=== PATIENT | female | born 1960 | race Caucasian/White ===

== ENCOUNTER 2024-11-05 10:37 | Outpatient (CLI) | payer OTHER, SELFPAY ==
--- NOTE | ~2024-11-05 | US_ITS ---
EXAMINATION: US renal BI DATE: 11/05/2024 11:39 INDICATION: Stage IV chronic kidney disease TECHNIQUE: Multiple ultrasound grayscale images of the kidneys were obtained. COMPARISON: None. FINDINGS: The right kidney measures 10.2 x 4.8 x 4.0 cm. The left kidney measures 9.1 x 4.4 x 4.8 cm. There is bilateral diffuse increased renal cortical activity consistent with medical renal disease. 2.1 cm ane choic cyst at the upper pole of the right kidney. There is mild pelviectasis on the prevoid imaging d ecreased slightly on the post void imaging. There is no arun hydronephrosis in either kidney. No st ones identified. There are couple cystic left adnexal regions which appear to abut the dome of the ot herwise normal-appearing bladder which could represent either adnexal cysts or bladder diverticula. T hese lesions measure 2.5 cm and 2.0 cm in maximal diameters. IMPRESSION: 1. Bilateral echogenic renal parenchyma consistent with medical renal disease. 2. Mild right pelviectasis on prevoid imaging which improves post voiding with no arun hydronephrosi s in either kidney. 3. A couple anechoic cystic lesions at the left adnexa which could represent bladder diverticula vers us simple appearing adnexal cyst. Reviewed, dictated and finalized at location B. PRESSER IMPRESSION: 1. Bilateral echogenic renal parenchyma consistent with medical renal disease. 2. Mild right pelviectasis on prevoid imaging which improves post voiding with no arun hydronephrosis in either kidney. 3. A couple anechoic cystic lesions at the left adnexa which could represent bl adder diverticula versus simple appearing adnexal cyst.
== END 2024-11-05 10:38 | disposition home or self-care (01) ==
PROVIDERS: PCP Nurse Practitioner Family; Visit Provider Internal Medicine Nephrology
DX: N18.4 Chronic kidney disease, stage 4 (severe) (principal)
CPT/HCPCS: 76775

== ENCOUNTER 2024-12-12 14:17 | Outpatient (CLI) | payer OTHER, SELFPAY ==
--- OUTSIDE RECORDS SUMMARY | 2024-12-12 14:20 | XMS_ITS | Referral Summary ---
Author Organization [email or web address] Address [address] [place] [address] Care Team Providers Care Refining Machine Operator Name Role Phone Unavailable Primary Care Provider Unavailabl e Source Comments [email or web address],non-owned Affiliates and Associated Physician Practices is amultiple site organization consisting of ambulatory clinics and hospital sitesin [place], [place], [place] and [place]. This disclosure is being madepursuant to the Care Everywhere program and may not contain all information available regarding this patient. Last updated 18.[email or web address] Allergies Active Allergy Reactions Criticality Noted Date Comments Hydrochlorothiazide Nausea and/or Vomiting Medium 11/0 10/2015 Sulfa Drugs Vomiting 04/03/2019 Hydrocodone-Acetaminophen Psychiatric,Vomiting Medium 04/03/2019 Medications * Be aware that medications may not be up to date on this document. Alwaysverify current medications with the patient. Medication Sig Dispensed Refills Start Date End Date Status fluticasone propionate (FLONASE) 50 MCG/ACT nasal spray [place] 2 sprays into each nostril once daily 1 bottles 04/03/2019 Active QUINAPRIL HCL PO Active Loratadine (CLARITIN PO) Active Cetirizine HCl (ZYRTEC PO) Active Active Problems Problem Noted Date Diagnosed Date Mixed anxiety and depressive disorder 09/25/2016 Essential hypertension 08/23/2016 Social History Tobacco Use Types Packs/Day Years Used Date Smoking Tobacco: Former Smokeless Tobacco: Current Comments:Currently vapes Sex and Gender Information Value Date Recorded Sex Assigned at Not on file Gender Identity Not on file Sexual Orientation Not on file Last Filed Vital Signs Vital Sign Reading Time Taken Comments Blood Pressure 128/78 10/04/2020 2:44 PM DATA SCIENCES DIRECTOR Pulse 88 10/04/2020 2:44 PM DATA SCIENCES DIRECTOR Temperature 36.8 C (98.2 F) 10/04/2020 2:44 PM DATA SCIENCES DIRECTOR Respiratory Rate 20 10/04/2020 2:44 PM DATA SCIENCES DIRECTOR Oxygen Saturation 97% 11/01/2019 4:10 PM DATA SCIENCES DIRECTOR Inhaled Oxygen Concentration - - Weight 86.2 kg (190 lb) 11/01/2019 4:10 PM DATA SCIENCES DIRECTOR Height 165.1 cm (5' 5 ) 11/01/2019 4:10 PM DATA SCIENCES DIRECTOR Body Mass Index 31.62 11/01/2019 4:10 PM DATA SCIENCES DIRECTOR Plan of Treatment Not on file
--- OUTSIDE RECORDS SUMMARY | 2024-12-12 14:20 | XMS_ITS | Clinical Summary ---
Author Organization [facility] Address [address] [place] [address] Care Team Providers Care Breakdown Worker Name Role Phone Unavailable Primary Care Provider Unavailabl e Source Comments [facility],non-owned Affiliates and Associated Physician Practices is amultiple site organization consisting of ambulatory clinics and hospital sitesin [place], [place], [place] and [place]. This disclosure is being madepursuant to the Care Everywhere program and may not contain all information available regarding this patient. Last updated 18.[facility] Allergies Active Allergy Reactions Criticality Noted Date Comments Hydrochlorothiazide Nausea and/or Vomiting Medium 11/0 10/2015 Sulfa Drugs Vomiting 04/03/2019 Hydrocodone-Acetaminophen Psychiatric,Vomiting Medium 04/03/2019 Medications * Be aware that medications may not be up to date on this document. Alwaysverify current medications with the patient. Medication Sig Dispensed Refills Start Date End Date Status fluticasone propionate (FLONASE) 50 MCG/ACT nasal spray [place] 2 sprays into each nostril once daily 1 bottles 04/03/2019 Active QUINAPRIL HCL PO Active Loratadine (CLARITIN PO) Active Cetirizine HCl (ZYRTEC PO) Active Active Problems Problem Noted Date Diagnosed Date Mixed anxiety and depressive disorder 09/25/2016 Essential hypertension 08/23/2016 Family History Medical History Relation Name Comments Cancer - Other Father brain cancer Lymphoma Mother Relation Name Status Comments Father Mother Social History Tobacco Use Types Packs/Day Years Used Date Smoking Tobacco: Former Smokeless Tobacco: Current Comments:Currently vapes Sex and Gender Information Value Date Recorded Sex Assigned at Not on file Gender Identity Not on file Sexual Orientation Not on file Last Filed Vital Signs Vital Sign Reading Time Taken Comments Blood Pressure 128/78 10/04/2020 2:44 PM PROCUREMENT SERVICES MANAGER Pulse 88 10/04/2020 2:44 PM PROCUREMENT SERVICES MANAGER Temperature 36.8 C (98.2 F) 10/04/2020 2:44 PM PROCUREMENT SERVICES MANAGER Respiratory Rate 20 10/04/2020 2:44 PM PROCUREMENT SERVICES MANAGER Oxygen Saturation 97% 11/01/2019 4:10 PM PROCUREMENT SERVICES MANAGER Inhaled Oxygen Concentration - - Weight 86.2 kg (190 lb) 11/01/2019 4:10 PM PROCUREMENT SERVICES MANAGER Height 165.1 cm (5' 5 ) 11/01/2019 4:10 PM PROCUREMENT SERVICES MANAGER Body Mass Index 31.62 11/01/2019 4:10 PM PROCUREMENT SERVICES MANAGER Plan of Treatment Health Maintenance Due Date Last Done Comments COLOGUARD (AGES 45-75) - COL ON CA SCREENING 1961 COLON MONITORING 1961 COLONOSCOPY - COLON CA SCREENING 1961 CT COLONOGRAPHY - COLON CA SCREENING 1961 Colorectal Cancer Screening 1961 FIT - COLON CA SCREENING 1961 FLEX SIG - COLON CA SCREENING 1961 LIPID TESTING 1961 MAMMOGRAM 1961 PAP SMEAR 1961 HIV SCREENING 1976 HEPATITIS C SCREENING 05/01/1979 DTAP/TDAP/TD VACCINES (1 - Tdap) 1980 PNEUMOCOCCAL VACCINE 50+ (1 of 1 - PCV) 2011 ZOSTER VACCINE (1 of 2) 2011 SCREENING FOR DIABETES 04/03/2019 COVID-19 VACCINE ( - 2023-2 5 season) 2024 INFLUENZA VACCINE (#1) 2024 DEPRESSION SCREENING 10/22/2024 Respiratory Syncytial Virus (RSV) Vaccine Pt: or over 60 yrs (1 - 1-dose 75+ series) 2036 HEPATITIS B VACCINE Aged Out No longe r eligible based on patient's age to complete this topic HIB VACCINE Aged Out No longer eligi ble based on patient's age to complete this topic HPV VACCINE Aged Out No longer eligi ble based on patient's age to complete this topic MENINGOCOCCAL (Group B) VACCINE Aged Out No longer eligible based on patient's age to complete this topic MENINGOCOCCAL VACCINE Aged Out No adam jason eligible based on patient's age to complete this topic PNEUMOCOCCAL VACCINE Aged Out No long er eligible based on patient's age to complete this topic
--- OUTSIDE RECORDS SUMMARY | 2024-12-12 14:20 | XMS_ITS | Patient Health Summary ---
Author Organization [facility] [employer] Address [address] [place] [address] Care Team Providers Care Document Control Supervisor Name Role Phone Unavailable Primary Care Provider Unavailabl e Note from [facility] [employer] [facility],non-owned Affiliates and Associated Physician Practices is amultiple site organization consisting of ambulatory clinics and hospital sitesin [place], [place], [place] and [place]. This disclosure is being madepursuant to the Care Everywhere program and may not contain all information available regarding this patient. Last updated 18.[facility] [employer] Allergies * Hydrochlorothiazide(Nausea and/or Vomiting) -Medium Criticality * Sulfa Drugs(Vomiting) * Hydrocodone-Acetaminophen(Psychiatric,Vomiting) -Medium Criticality Medications * Be aware that medications may not be up to date on this document. Alwaysverify current medications with the patient. * fluticasone propionate (FLONASE) 50 MCG/ACT nasal spray(Started 04/03/2019) [place] 2 sprays into each nostril once daily * QUINAPRIL HCL PO * Loratadine (CLARITIN PO) * Cetirizine HCl (ZYRTEC PO) Active Problems Problem Noted Date Diagnosed Date [...] Comments Blood Pressure 128/78 10/04/2020 2:44 PM RUBBER FLAP TUBER MACHINE OPERATOR Pulse 88 10/04/2020 2:44 PM RUBBER FLAP TUBER MACHINE OPERATOR Temperature 36.8 C (98.2 F) 10/04/2020 2:44 PM RUBBER FLAP TUBER MACHINE OPERATOR Respiratory Rate 20 10/04/2020 2:44 PM RUBBER FLAP TUBER MACHINE OPERATOR Oxygen Saturation 97% 11/01/2019 4:10 PM RUBBER FLAP TUBER MACHINE OPERATOR Inhaled Oxygen Concentration - - Weight 86.2 kg (190 lb) 11/01/2019 4:10 PM RUBBER FLAP TUBER MACHINE OPERATOR Height 165.1 cm (5' 5 ) 11/01/2019 4:10 PM RUBBER FLAP TUBER MACHINE OPERATOR Body Mass Index 31.62 11/01/2019 4:10 PM RUBBER FLAP TUBER MACHINE OPERATOR Procedures * COVID-19 SARS-COV-2 PCR QUAL ([facility])(Performed 10/04/2020) Performed for Acute non-recurrent maxillary sinusitis * INFLUENZA A+B - POINT OF CARE (AMB)(Performed 11/01/2019) Performed for Flu-like symptoms Results * COVID-19 SARS-COV-2 PCR QUAL ([facility]) (10/04/2020 2:38 PM RUBBER FLAP TUBER MACHINE OPERATOR) SARS-CoV-2 CLARA Not Detected Not Detected [facility] INSURANCE BILL Comment: This nucleic acid amplification test was developed and its performance characteristics determined by [employer]. Nucleic acid amplification tests include PCR and TMA. This test has not been FDA cleared or approved. This test has been authorized by FDA under an Emergency Use Authorization (EUA). This test is only authorized for the duration of time the declaration that circumstances exist justifying the authorization of the emergency use of in vitro diagnostic tests for detection of SARS-CoV-2 virus and/or diagnosis of COVID-19 infection under section 564(b)(1) of the Act, 21 U.S.C. 360bbb-3(b) (1), unless the authorization is terminated or revoked sooner. When diagnostic testing is negative, the possibility of a false negative result should be considered in the context of a patient's recent exposures and the presence of clinical signs and symptoms consistent with COVID-19. An individual without symptoms of COVID-19 and who is not shedding SARS-CoV-2 virus would expect to have a negative (not detected) result in this assay. Microbiology SPECIMEN FROM NASOPHARYNGEAL STRUCTURE / Unknown 10/04/2020 2:38 PM RUBBER FLAP TUBER MACHINE OPERATOR 10/05/2020 Narrative Resulting Agency Comment Lab Testing performed at: [employer] [address] [facility] [id number] Hernandez L Klostermann CLINICAL SECRETARY-WOOL SCOURER LAB - MICRO BIOLOGY ORDERABLES [facility] INSURANCE BILL [address] [place] [address] * INFLUENZA A+B - POINT OF CARE (AMB) (11/01/2019 4:30 PM RUBBER FLAP TUBER MACHINE OPERATOR) Influenza A Antigen Rapid Negative Negative Influenza B Antigen Rapid Negative Negative Influenza Internal Control present NEGATIVE - POSITIVE Influenza Lot Number [id number] Influenza Expiration Date 01 22 2021 Other NASOPHARYNGEAL SWAB / Unknown 11/01/2019 4:30 PM RUBBER FLAP TUBER MACHINE OPERATOR Vonda Cohen CLINICAL SECRETARY-WOOL SCOURER LAB - POINT OF CA RE ORDERABLES
--- OUTSIDE RECORDS SUMMARY | 2024-12-12 14:20 | XMS_ITS | Clinical Summary ---
Author Organization [facility] Address [address] [address] Care Team Providers Care Rn Hematology Name Role Phone Jamaal Garcia MD Primary Care Provider [phone] Allergies Active Allergy Reactions Criticality Noted Date Comments Hydrochlorothiazide Nausea 06/19/2022 Hydrocodone Vomiting 06/19/2022 Sulfa Antibiotics Nausea 06/19/2022 Medications buPROPion XL (WELLBUTRIN XL) 150 MG 24 hr tablet Take 300 mg by mouth 1 (one) time each day Do not crush, chew, or split. Active traZODone (DESYREL) 50 MG tablet Take 50 mg by mouth every night Active Social History Tobacco Use Types Packs/Day Years Used Date Smoking Tobacco: Never Assessed Comments Unknown Sex and Gender Information Value Date Recorded Sex Assigned at Not on file Legal Sex Female 11:03 AM EDT Gender Identity Not on file Sexual Orientation Not on file Plan of Treatment Health Maintenance Due Date Last Done Comments Breast Cancer Screening 1961 Pneumococcal Vaccine: Pediatrics (0 to 5 Years) and At-Risk Patients (6 to 64 Years) (1 of 2 - PCV) 1967 Colorectal Cancer Screening: Annual FOBT 2010 Colorectal Cancer Screening: Colonoscopy 2010 Colorectal Cancer Screening: Sigmoidoscopy 2010 Influenza Vaccine Completed 09/10/2024, 08/22/2023, 08/22/2022 Hepatitis B Vaccine Aged Out No longe r eligible based on patient's age to complete this topic Care Teams Rn Hematology Relationship Specialty Start Date End Date Jamaal [place] [address] PCP - General Family Medicine 06/19/22
--- OUTSIDE RECORDS SUMMARY | 2024-12-12 14:20 | XMS_ITS | Referral Summary ---
Author Organization [facility] [place] [facility] Address [address] [place] [address] Care Team Providers Care Pickle Pumper Name Role Phone Jamaal Solorio MD Primary Care Provider [phone] Encounters Date Type Department Care Team Description 11/19/2024 3:24 PM PRINT PRODUCTION ASSOCIATE - 11/19/2024 11:59 PM PRINT PRODUCTION ASSOCIATE [place] [address] Chronic kidney disease, stage IV (severe) (CMS/HCC) (HCC) Discharge Disposition: Discharge to home or self care 11/19/2024 3:15 PM PRINT PRODUCTION ASSOCIATE Lab [facility] Outpatient Lab at [address] [address] Chronic kidney disease, stage IV (severe) (CMS/HCC) (HCC) (Primary Dx) 11/12/2024 1:55 PM PRINT PRODUCTION ASSOCIATE - 11/12/2024 11:59 PM PRINT PRODUCTION ASSOCIATE Hospital Encounter [address] [address] Chronic kidney disease, stage IV (severe) (CMS/HCC) (HCC) Discharge Disposition: Discharge to home or self care 11/12/2024 1:45 PM PRINT PRODUCTION ASSOCIATE Lab [facility] Outpatient Lab at [address] [address] Chronic kidney disease, stage IV (severe) (CMS/HCC) (HCC) (Primary Dx); Hypertension, essential 10/01/2024 2:00 PM PRINT PRODUCTION ASSOCIATE Therapy [facility] Warm Hand Off Program [address] [place] [address] Addie Fung, 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 BHAVANI (generalized anxiety disorder) (Primary Dx); MDD (major depressive disorder), recurrent episode, moderate ([facility]); Grief from Last 3 Months Allergies Active Allergy Reactions Criticality Noted Date Comments Hydrochlorothiazide Nausea And Vomiting Medium 016 Hydrocodone-Acetaminophen Other (See comments),Vomiting Medium 04/03/2019 Sulfa (Sulfonamide Antibiotics) Nausea only,Vomiting High 02/04/2021 Medications carvediloL (COREG) 6.25 mg tablet Take 1 tablet (6.25 mg total) by mouth 2 (two) times a day with meals 60 tablet 11 4 04/23/20 25 Active traZODone (DESYREL) 100 mg tabletIndicatio ns:Generalized anxiety disorder TAKE 1 TABLET BY MOUTH EVERY DAY AT BEDTIME NEEDED FOR SLEEP 100 tablet 1 4 Active buPROPion XL (WELLBUTRIN XL) 150 mg 24 hr tablet TAKE 3 TABLETS BY MOUTH EVERY MORNING 270 tablet 5 Active lisdexamfetamin e (VYVANSE) 30 mg capsule Take 1 capsule (30 mg total) by mouth every morning 30 capsule 5 01/05/20 25 Active lisdexamfetamin e (VYVANSE) 30 mg capsule Take 1 capsule (30 mg total) by mouth every morning 30 capsule 5 12/01/19 25 Discontinu ed(Reorder ) Active Problems Problem Noted Date Diagnosed Date UTI symptoms 09/10/2024 Assessment & Plan (09/10/2024 1:17 PM PRINT PRODUCTION ASSOCIATE): Endorsing dysuria, low concern for pyelo at this time Will order UA and follow up with results Dyslipidemia 04/03/2024 Assessment & Plan (04/03/2024 1:20 PM CDT): Borderline high LDL and total cholesterol; encourage low-fat high-fiber diet Continue to monitor CKD (chronic kidney disease) stage 4, GFR 15-29 ml/min ([facility]) 04/03/2024 Assessment & Plan (09/10/2024 1:16 PM PRINT PRODUCTION ASSOCIATE): No concern sin this regard, follow with size worker Will continue to monitor peripherally Assessment & Plan (06/10/2024 2:16 PM CDT): For Nephrology; most recent EGFR was below 30, stable [place] and lambda light chains are elevated with normal ratio; positive RAMU Will follow recommendations per Nephrology Assessment & Plan (04/03/2024 1:20 PM CDT): Patient continues to have labile EGFR, with symptoms going up and down Will refer to nephrology for evaluation continue surveillance Attention deficit hyperactiv ity disorder (ADHD), predominantly hyperactive type 02/21/2024 Assessment & Plan (09/10/2024 4:02 PM PRINT PRODUCTION ASSOCIATE): Pt stable in this regard and is receiving 10+ hours of medication effect Will continue vyanse 30mg daily at this time Patient to start taking Vyvanse later in the morning in order to allow effect to occur until later in the evening Assessment & Plan (06/10/2024 2:15 PM CDT): Stable, generally well controlled; has better relief with generic medication Continue Vyvanse 30 mg daily Assessment & Plan (04/03/2024 1:20 PM CDT): Stable, improved control with medication, but after several weeks, no longer having significant symptom relief Will increase Vyvanse to 30 mg daily; continue to monitor blood pressure closely Assessment & Plan (02/21/2024 1:07 PM CDT): Patient reports family history of ADHD, both daughters diagnosed; other family members who were diagnosed or have significant symptoms Previously well controlled, however patient now has increased responsibilities causing her to feel more anxious, as well as difficulty with managing and potentially losing items Will start Vyvanse 20 mg daily; evaluate in 6 weeks for response to Generalized anxiety disorder 11/10/2022 Assessment & Plan (09/10/2024 1:43 PM PRINT PRODUCTION ASSOCIATE): Stable, is following with counselor and is happy with results Continue therapy with Wellbutrin XL 150mg daily and trazadone 100mg PRN Assessment & Plan (06/10/2024 2:15 PM CDT): Stable, has been harder since ; now having medical need for sun, including managing since management Will continue bupropion 150 mg daily, trazodone 100 mg nightly Assessment & Plan (04/03/2024 1:19 PM CDT): Has good relief with trazodone at bedtime; able to sleep through the night Continue 100 mg nightly Assessment & Plan (02/21/2024 1:06 PM CDT): Stable, well controlled; patient has multiple responsibilities; reports some depression related to it though generally well controlled with current medications Continue bupropion 150 mg daily; encourage individual counseling as able Assessment & Plan (11/10/2022 1:10 PM PRINT PRODUCTION ASSOCIATE): Reviewed pharmacologic treatment options for management of anxiety including SSRI/SNRIs, benzodiazepines, and non-benzodiazepine anxiolytics. Discussed transitioning to duloxetine, given chronic pain, patient prefers to stay on bupropion. Will start buspirone 5 mg three times daily, to start with 5 mg twice daily. Reviewed medication and adverse effects. Continue trazodone 100 mg nightly for sleep. Encouraged patient to engage with counseling-given list of locations and advised to call insurance for in network services. Recommend healthy eating and regular exercise. Seek immediate medical attention if experiencing SI/HI. Will continue to monitor. Follow-up in 3 months. Gastroesophageal reflux disease without esophagi tis 01/30/2022 Assessment & Plan (02/21/2024 1:06 PM CDT): Stable, well controlled; no recent episodes or symptoms; has had significant weight loss which has helped control acid reflux Will continue to monitor Assessment & Plan (01/30/2022 4:25 PM CDT): Patient has since of gurgling stomach, no relief with Prilosec Reports symptoms are not caused by eating Has had episodes of having to stop car to from Will try pantoprazole 40 mg daily, if no improvement will refer to GI for probable EGD Chronic bilateral thoracic back pain 03/11/2021 Assessment & Plan (05/24/2021 3:14 PM CDT): Follows with chiropractic twice per week with some adjustments Pain radiates along ribcage Pain is worse with lying flat and patient has some relief with Flexeril at nighttime Continue to encourage appropriate posture; will get imaging of thoracic spine and refer to physical therapy If no improvement may consider MRI given radiculopathy Assessment & Plan (03/11/2021 3:30 PM CDT): Stable, patient reports regular air pack any relations On exam patient has mild kyphosis and rounded shoulders Discussed with patient importance of posture in order to help reduce pain Patient given home exercises to perform Patient to take cyclobenzaprine 5 mg nightly in order to help with muscle spasms occurring in bed Hypertension, essential 03/02/2021 Assessment & Plan (09/10/2024 1:12 PM PRINT PRODUCTION ASSOCIATE): Mildly elevated at time of presentation, suspect element of white coat HTN Will continue coreg 6.25mg BID at this time, encourage pt to monitor at home can consider medication adjustment if pressures continuea to be elevated Assessment & Plan (06/10/2024 2:14 PM CDT): Not well controlled, blood pressure elevated; patient took medications this morning; patient reports home measurements are within normal limits Will continue current medication, continue carvedilol 6.25 mg b.i.d.; if blood pressures remain elevated especially ambulatory measurements; would recommend increasing dose Assessment & Plan (04/03/2024 1:19 PM CDT): Mildly elevated today; no chest pain Patient is not on blood pressure medication for extended time Will restart amlodipine 5 mg daily; continue monitor closely Assessment & Plan (02/21/2024 1:06 PM CDT): Stable, well controlled; has had weight loss; improved blood pressure without medication Will continue to monitor Assessment & Plan (01/30/2022 4:23 PM CDT): Stable, well controlled; improving Patient had 60 lb weight loss and episodes of hypotension Discontinue all medications at this time Continue to monitor Assessment & Plan (03/11/2021 3:30 PM CDT): Stable, well controlled, blood pressure is now at target Will continue lisinopril 40 mg continue to monitor and determine if extra medication is needed at future appointment Assessment & Plan (03/02/2021 12:19 PM CDT): Blood pressure elevated today, will restart lisinopril 40 mg Will recheck at follow-up visit to determine as 2nd dose is require Moderate episode of recurrent major depressive d isorder 03/02/2021 Assessment & Plan (09/10/2024 1:39 PM PRINT PRODUCTION ASSOCIATE): Mood much improved Continue Wellbutrin XL Assessment & Plan (06/10/2024 2:15 PM CDT): Stable, patient continues to have significant grief related to loss of ; patient has begun to engage in outside activities, including going to moravian; starting to go to stores at time; continues to have days of significant grief Recommend continued engagement with social activities, including moravian as well as groups such as group share Assessment & Plan (04/03/2024 1:19 PM CDT): Not well controlled, acutely worsened; patient's recently Continue bupropion 450 mg daily; patient to follow up with individual counseling Patient given resources for grief Assessment & Plan (11/10/2022 1:09 PM PRINT PRODUCTION ASSOCIATE): No changes, buspirone added to current regimen. Denies feeling hopeless or having any thoughts of self harm/SI. Assessment & Plan (02/17/2022 2:01 PM CDT): Stable, well controlled some a: Symptoms are improved with increased dose of bupropion Continue bupropion 300 mg daily Continue trazodone 50 mg nightly for sleep initiation Discussed with patient sleep hygiene uses strategies to help sleep initiation Assessment & Plan (01/30/2022 4:24 PM CDT): Stable, continues to have symptoms a few days every few weeks, with severe depression that can last 1-3 days Certain about 2 months ago Noted improvements of change in weather Continue bupropion 150 mg daily, trazodone 50 mg nightly Assessment & Plan (05/24/2021 3:14 PM CDT): Stable, improved control Patient feels that depression is now at a more appropriate level Continue bupropion 300 mg daily Assessment & Plan (03/11/2021 3:30 PM CDT): Stable, improving Patient reports good response with Wellbutrin, however notes that she is not fully improved Patient reports her family has also noticed improved mood and general outlook on life Will increase bupropion to 300 mg daily Patient reports insomnia not fully controlled on trazodone 50 mg, will increase to 100 mg nightly Assessment & Plan (03/02/2021 12:19 PM CDT): Any medication for the last 2 years Had good response previously to with bupropion, does not recall other medications with limited relief Today will restart bupropion 150 mg extended release, and will re-evaluate in approximately 4 weeks to evaluate response to therapy Will start trazodone 50 mg at bedtime in order to help with associated with insomnia Sciatica 05/22/2017 Spasm of back muscles 05/22/2017 Immunizations Immunization Administration Dates Next Due Influenza, Trivalent, Preser vative Free, Intramuscular 09/10/2024 Influenza, Unspecified 08/22/2023,2021,12/16/2021(Defer red: Patient Refused),07/22/2021(Deferred: Patient Refused),10/22/2020(Deferred: Patient Refused),10/22/2020(Deferred: Patient Refused),10/22/2020(Deferred: Patient Refused),10/22/2020(Deferred: Patient Refused),07/22/2020(Deferred: Patient Refused),10/22/2019(Deferred: Patient Refused),10/22/2019(Deferred: Patient Refused),10/22/2019(Deferred: Patient Refused),10/22/2019(Deferred: Patient Refused) Pfizer SARS-CoV-2 Monovalent Vaccination (12+ Yrs) PURPLE 01/08/2021,12/18/2020 Tdap 02/04/2021,09/26/2016 Social History Tobacco Use Types Packs/Day Years Used Date Smoking Tobacco: Former Cigarettes Smokeless Tobacco: Never Tobacco Cessation:Counseling Given: Not Answered [facility] [employer] Answer Date Recorded In the past 12 months has e [employer], oil, or water [employer] threatened to shut off services in your home? No 06/24/2024 Humiliation, Afraid, Rape, and Kick questionnair e Answer Date Recorded Within the last year, have y ou been afraid of your partner or ex-partner? No 06/24/2024 Within the last year, have y ou been humiliated or emotionally abused in other ways by your partner or ex-partner? No Within the last year, have y ou been kicked, hit, slapped, or otherwise physically hurt by your partner or ex-partner? No 06/24/2024 Within the last year, have y ou been raped or forced to have any kind of sexual activity by your partner or ex-partner? No 06/24/2024 Social Connection and Isolat ion Panel [NHANES] Answer Date Recorded In a typical week, how many times do you talk on the phone with family, friends, or neighbors? More than three times a week 06/24/2024 How often do you get togethe r with friends or relatives? More than three times a week 06/24/2024 How often do you attend chur ch or presybeterian services? More than 4 times per year 06/24/2024 Do you belong to any clubs o r organizations such as moravian groups, unions, fraternal or athletic groups, or school groups? No 06/24/2024 How often do you attend meet ings of the clubs or organizations you belong to? Never 06/24/2024 Are you , , di vorced, , never , or living with a partner? 06/24/2024 AUDIT-C Answer Date Recorded Q1: How often do you have a drink containing alc ohol? Monthly or less 06/24/2024 Average Number of Drinks Not on file 024 Q3: How often do you have si x or more drinks on one occasion? Never 06/24/2024 Overall Financial Resource Strain (CARDIA) Answe r Date Recorded How hard is it for you to pa y for the very basics like food, housing, medical care, and heating? Not hard at all 06/24/2024 PHQ-2 Answer Date Recorded PHQ-2 Total Score (If total score is 3 or more points, staff should administer the PHQ-9) 1 06/24/2024 [facility] - Occupational Stress Questionnaire Answer Date Recorded Do you feel stress - tense, restless, nervous, or anxious, or unable to sleep at night because your mind is troubled all the time - these days? Rather much 06/24/2024 Exercise Vital Sign Answer Date Recorde d On average, how many days pe r week do you engage in moderate to strenuous exercise (like a brisk walk)? 4 days 06/24/2024 On average, how many minutes do you engage in exercise at this level? 120 min 06/24/2024 Hunger Vital Sign Answer Date Recorded Within the past 12 months, y ou worried that your food would run out before you got the money to buy more. Never true 06/24/20 24 Within the past 12 months, t he food you bought just didn't last and you didn't have money to get more. Never true 06/24/2024 PRAPARE - Transportation Answer Date Re corded In the past 12 months, has l ack of transportation kept you from medical appointments or from getting medications? No 12/2023 In the past 12 months, has l ack of transportation kept you from meetings, work, or from getting things needed for daily living? No 06/24/2024 Housing Stability Vital Sign Answer Eddie e Recorded In the last 12 months, was t here a time when you were not able to pay the mortgage or rent on time? No 06/24/2024 In the past 12 months, how m any times have you moved where you were living? 0 06/24/2024 At any time in the past 12 m [facility], were you homeless or living in a care home (including now)? No 06/24/2024 Comments No Sex and Gender Information Value Date Recorded Sex Assigned at Not on file Legal Sex Female 8:39 AM CDT Gender Identity Not on file Sexual Orientation Not on file Last Filed Vital Signs Vital Sign Reading Time Taken Comments Blood Pressure 146/90 09/10/2024 10:37 AM PRINT PRODUCTION ASSOCIATE Pulse 72 09/10/2024 10:37 AM PRINT PRODUCTION ASSOCIATE Temperature 36.6 C (97.8 F) 09/10/2024 10:37 AM PRINT PRODUCTION ASSOCIATE Respiratory Rate 18 09/10/2024 10:37 AM PRINT PRODUCTION ASSOCIATE Oxygen Saturation 99% 09/10/2024 10:37 AM PRINT PRODUCTION ASSOCIATE Inhaled Oxygen Concentration - - Weight 68.5 kg (151 lb) 09/10/2024 10:37 AM PRINT PRODUCTION ASSOCIATE Height 165.1 cm (5' 5 ) 09/10/2024 10:37 AM PRINT PRODUCTION ASSOCIATE Body Mass Index 25.13 09/10/2024 10:37 AM PRINT PRODUCTION ASSOCIATE Plan of Treatment Not on file Procedures Procedure Name Priority Date/Time Associated Diagnosis Comments CLINICAL PATHOLOGY REPORT Routine 11/19/2024 9:00 AM PRINT PRODUCTION ASSOCIATE IMMUNOFIXATION, URINE Routine 11/19/2024 9:00 AM PRINT PRODUCTION ASSOCIATE Chronic kidney disease, stage IV (severe) (CMS/HCC) (HCC) UREA NITROGEN, URINE, 24 HOUR RESULT Routine 11/19/2024 9:00 AM PRINT PRODUCTION ASSOCIATE Chronic kidney disease, stage IV (severe) (CMS/HCC) (HCC) VOLUME AND PERIOD, URINE, 24 HOUR Routine 11/19/2024 9:00 AM PRINT PRODUCTION ASSOCIATE Chronic kidney disease, stage IV (severe) (CMS/HCC) (HCC) PROTEIN ELECTROPHORESIS, URINE, 24 HOUR RESULT Routine 11/19/2024 9:00 AM PRINT PRODUCTION ASSOCIATE Chronic kidney disease, stage IV (severe) (CMS/HCC) (HCC) UREA NITROGEN, URINE, 24 HOUR Routine 11/19/2024 9:00 AM PRINT PRODUCTION ASSOCIATE Chronic kidney disease, stage IV (severe) (CMS/HCC) (HCC) PROTEIN ELECTROPHORESIS, URINE, 24 HOUR WITH IMMUNOFIXATION Routine 11/19/2024 9:00 AM PRINT PRODUCTION ASSOCIATE Chronic kidney disease, stage IV (severe) (CMS/HCC) (HCC) CLINICAL PATHOLOGY REPORT Routine 11/12/2024 1:55 PM PRINT PRODUCTION ASSOCIATE EGFR Routine 11/12/2024 1:55 PM PRINT PRODUCTION ASSOCIATE Chronic kidney disease, stage IV (severe) (CMS/HCC) (HCC) URINALYSIS, MICROSCOPIC ONLY Routine 11/12/2024 1:55 PM PRINT PRODUCTION ASSOCIATE Chronic kidney disease, stage IV (severe) (CMS/HCC) (HCC) C3 COMPLEMENT Routine 11/12/2024 1:55 PM PRINT PRODUCTION ASSOCIATE Chronic kidney disease, stage IV (severe) (CMS/HCC) (HCC) C4 COMPLEMENT Routine 11/12/2024 1:55 PM PRINT PRODUCTION ASSOCIATE Chronic kidney disease, stage IV (severe) (CMS/HCC) (HCC) COMPLEMENT, TOTAL Routine 11/12/2024 1:5 5 PM PRINT PRODUCTION ASSOCIATE Chronic kidney disease, stage IV (severe) (CMS/HCC) (HCC) CBC WITHOUT DIFFERENTIAL Routine 11/12/2024 1:55 PM PRINT PRODUCTION ASSOCIATE Chronic kidney disease, stage IV (severe) (CMS/HCC) (HCC) CREATINE KINASE (CK), TOTAL Routine 11/12/2024 1:55 PM PRINT PRODUCTION ASSOCIATE Chronic kidney disease, stage IV (severe) (CMS/HCC) (HCC) IMMUNOTYPING Routine 11/12/2024 1:55 PM PRINT PRODUCTION ASSOCIATE Chronic kidney disease, stage IV (severe) (CMS/HCC) (HCC) IMMUNOGLOBULIN FREE LIGHT CHAINS Routine 11/12/2024 1:55 PM PRINT PRODUCTION ASSOCIATE Chronic kidney disease, stage IV (severe) (CMS/HCC) (HCC) ERYTHROCYTE SEDIMENTATION RATE Routine 11/12/2024 1:55 PM PRINT PRODUCTION ASSOCIATE Chronic kidney disease, stage IV (severe) (CMS/HCC) (HCC) RENAL FUNCTION PANEL Routine 11/12/2024 1:55 PM PRINT PRODUCTION ASSOCIATE Chronic kidney disease, stage IV (severe) (CMS/HCC) (HCC) RAMU QUALITATIVE WITH REFLEX TO RAMU QUANTITATIVE Routine 11/12/2024 1:55 PM PRINT PRODUCTION ASSOCIATE Chronic kidney disease, stage IV (severe) (CMS/HCC) (HCC) PTH Routine 11/12/2024 1:55 PM PRINT PRODUCTION ASSOCIATE Chronic kidney disease, stage IV (severe) (CMS/HCC) (HCC) PROTEIN / CREATININE RATIO, URINE, RANDOM Routine 11/12/2024 1:55 PM PRINT PRODUCTION ASSOCIATE Chronic kidney disease, stage IV (severe) (CMS/HCC) (HCC) URINALYSIS AND REFLEX TO MICROSCOPIC AND CULTURE Routine 11/12/2024 1:55 PM PRINT PRODUCTION ASSOCIATE Chronic kidney disease, stage IV (severe) (CMS/HCC) (HCC) SCREENING MAMMOGRAM BILATERAL W BRENDA Schedule Routine, Read Routine (OP Routine) 02/16/2022 2:29 PM CDT Encounter for screening mammogram for malignant neoplasm of breast STOOL DNA COLOGUARD Routine 03/09/2021 1:30 PM CDT Colon cancer screening HEPATITIS C ANTIBODY Routine 02/04/2021 3:49 PM CDT Encounter for medical examination to establish care from Last 3 Months or Most Recently Relevant to Health Maintenance Results * Clinical pathology report (11/19/2024 9:00 AM PRINT PRODUCTION ASSOCIATE) Miscellaneous 11/19/2024 9:0 0 AM PRINT PRODUCTION ASSOCIATE 11/20/2024 8:35 AM PRINT PRODUCTION ASSOCIATE Narrative 11/20/2024 4:35 PM PRINT PRODUCTION ASSOCIATE EPIC results best viewed via link to PDF [facility] Department of Pathology [address] [place] [id number] Final Report Note to Patients: This report may contain a detailed description of human tissue sent by a health care provider to the laboratory for pathologic evaluation. The content of this report is essential for diagnosis and may provide important critical findings. This information may be unfamiliar to patients to review without a medical professional present. It is advised that the patient review this report in the presence of a health care provider who can answer questions and explain the details. Patient Name: LIDIA MAHER Address: [address] [place] [address] Gender: F : 1960 (Age: 64) Service: Location: N : [id number] [facility] #: [id number] Patient Type: SPECIMEN Taken: 11/19/2024 Received: 11/20/2024 Accessioned: 11/20/2024 Physician(s): Shmuel Stewart M.D. Specimen(s) Received A: Urine Urine Protein Electrophoresis with ImmunofixationReported:11/20/2024 Interpretation: Urine Protein Electrophoresis: Marked selective proteinuria. Urine Protein Immunofixation: Normal urine immunofixation study. Comment: Urine Protein Electrophoresis: Electrophoresis shows a marked selective proteinuria. Urine Protein Immunofixation: Examination of G, A and M heavy chains as well as kappa and lambda light chains reveals no evidence of abnormal bands. See Epic and/or separate report for protein fraction table. Iggy Bernal MD PhDReport Electronically Reviewed and Signed Out By Iggy Bernal MD PhD 11/20/2024 16:33:15 The performance characteristics of some immunohistochemical stains, fluorescence in-situ hybridization tests and immunophenotyping by flow cytometry cited in this report (if any) were determined by the Surgical Pathology Department at [facility] as part of an ongoing quality assurance coach program and in compliance with federally mandated regulations drawn from the Clinical Laboratory Improvement Act of 1988 (CLIA '88). Some of these tests rely on the use of analyte specific reagents and are subject to specific labeling requirements by the US Food and Drug Administration. Such diagnostic tests may only be performed in a facility that is certified by the Department of Health and Human Services as a high complexity laboratory under CLIA '88. The FDA has determined that such clearance or approval is not necessary. This test is used for clinical purposes. It should not be regarded as investigational or for research. Nevertheless, federal rules concerning the medical use of analyte specific reagents require that the following disclaimer be attached to the report: This test was developed and its performance characteristics determined by the Surgical Pathology Department [facility]. It has not been cleared or approved by the U. S. Food and Drug Administration. REPORT IMAGES AND SCANNED DOCUMENTS, IF INCLUDED, ONLY VIEWABLE IN PDF VERSION OF REPORTe o Shmuel Stewart MD LAB PATHOLOGY ORDERABLES Fin al Result * Volume and period, urine, 24 hour (11/19/2024 9:00 AM PRINT PRODUCTION ASSOCIATE) Volume, ur 1,500 mL Period, Urine Collection 1,500 min [facility] Urine 11/19/2024 9:00 AM PRINT PRODUCTION ASSOCIATE 11/19/2024 11:45 PM PRINT PRODUCTION ASSOCIATE Narrative [facility] 11/20/2024 12:15 AM PRINT PRODUCTION ASSOCIATE Fax results to Dr Shmuel Stewart [phone] Shmuel Stewart MD LAB URINE ORDERABLES Final R esult Performing Organization Address [facility] Co de Phone Number [place] [address] [place] [address] * Urea nitrogen, urine, 24 hour (11/19/2024 9:00 AM PRINT PRODUCTION ASSOCIATE) Urea nitrogen, 24 hr ur 7 5 - 20 g/24H Urine 11/19/2024 9:00 AM PRINT PRODUCTION ASSOCIATE 11/19/2024 11:45 PM PRINT PRODUCTION ASSOCIATE [facility] - 11/20/2024 12:25 AM PRINT PRODUCTION ASSOCIATE Fax results to Dr Shmuel Stewart [phone] Shmuel Stewart MD LAB URINE ORDERABLES Final R [facility] Performing Organization Address [facility] Co de Phone Number NEW [address] [address] [facility] [place] [address] * (ABNORMAL) Protein electrophoresis, urine, 24 hour (11/19/2024 9:00 AM PRINT PRODUCTION ASSOCIATE) Protein, ur, quant 175.7 mg/dL Comment:No reference range e stablished. Albumin, Ur 75.3 % [facility] Comment:No reference range e stablished. Alpha-1 globulin, Ur 7.8 % NEW [facility] Comment:No reference range e stablished. Alpha-2 globulin, Ur 3.2 % [facility] Comment:No reference range e stablished. Beta globulin, Ur 6.4 % [facility] Comment:No reference range e stablished. Gamma globulin, Ur 7.3 % NEW [facility] Comment:No reference range e stablished. UPEP interp See Cl Path Rpt [facility] Protein, 24 hr, ur 2,530(H) 1 - 150 mg/24H NEW Urine 11/19/2024 9:00 AM PRINT PRODUCTION ASSOCIATE 11/19/2024 11:45 PM PRINT PRODUCTION ASSOCIATE Narrative NEW - 11/21/2024 12:21 PM PRINT PRODUCTION ASSOCIATE Fax results to Dr Shmuel Stewart [phone] Shmuel Stewart MD LAB URINE ORDERABLES Final R esult Performing Organization Address [facility] de Phone Number [place] [address] [place] [address] * Immunofixation, urine (11/19/2024 9:00 AM PRINT PRODUCTION ASSOCIATE) Immunofixation , Ur See Cl Path Rpt Urine 11/19/2024 9:00 AM PRINT PRODUCTION ASSOCIATE 11/19/2024 11:45 PM PRINT PRODUCTION ASSOCIATE Shmuel Stewart MD LAB URINE ORDERABLES Final R esult Performing Organization Address [facility] de Phone Number [facility] [address] [address] [facility] [place] [address] * Immunotyping, serum (11/12/2024 1:55 PM PRINT PRODUCTION ASSOCIATE) Immunofixation See Cl Path Rpt Blood 11/12/2024 1:55 PM PRINT PRODUCTION ASSOCIATE 11/12/2024 9:14 PM PRINT PRODUCTION ASSOCIATE Narrative NEW - 11/13/2024 12:12 PM PRINT PRODUCTION ASSOCIATE Fax results to Dr Arielle Stewart [phone] Shmuel Stewart MD LAB BLOOD ORDERABLES Final R esult Performing Organization Address City/[facility]/ZIP Co de Phone Number KIMBERLYDAVID [place]LL[place] [address] [place] [address] * (ABNORMAL) RAMU ab ql w/rflx to RAMU qn (11/12/2024 1:55 PM PRINT PRODUCTION ASSOCIATE) RAMU Positive 1:320 Comment: Interpretive Data Normal range for RAMU Qualitative Antibody = Negative. 1. RAMU is performed using indirect immunofluorescence against HEp-2 cells 2. RAMU titers are performed on all positive qualitative results. 3. A significantly positive RAMU result is defined as a positive nuclear fluorescence at a titer of 1:80 or greater. 4. 15% of normal people above age 65 have significantly positive RAMU results. 5% or less of normal people age 65 or under have significantly positive RAMU results. Current interpretive data was last revised on 2020. Testing performed by: [facility], [address] [place] [address]., [id number] RAMU, quant 1:320 titer NEW Comment:Testing performed by : [facility], [address] [place] [address]., [id number] RAMU, interp Homogeneous (A) NEW Comment:Testing performed by : [facility], [address] [place] [address]., [id number] Blood 11/12/2024 1:55 PM PRINT PRODUCTION ASSOCIATE 11/13/2024 10:13 AM PRINT PRODUCTION ASSOCIATE Narrative NEW - 11/14/2024 1:07 PM PRINT PRODUCTION ASSOCIATE Fax results to Dr Arielle Stewart [phone] Shmuel Stewart MD LAB BLOOD ORDERABLES Final R esult KIMBERLYDAVID [place] [address] [place] [address] * Clinical pathology report (11/12/2024 1:55 PM PRINT PRODUCTION ASSOCIATE) Miscellaneous 11/12/2024 1:5 5 PM PRINT PRODUCTION ASSOCIATE 11/13/2024 8:31 AM PRINT PRODUCTION ASSOCIATE Narrative 11/16/2024 8:50 AM PRINT PRODUCTION ASSOCIATE [facility] results best viewed via link to PDF [facility] Department of Pathology [address] [place] [address] Final Report Note to Patients: This report may contain a detailed description of human tissue sent by a health care provider to the laboratory for pathologic evaluation. The content of this report is essential for diagnosis and may provide important critical findings. This information may be unfamiliar to patients to review without a medical professional present. It is advised that the patient review this report in the presence of a health care provider who can answer questions and explain the details. Patient Name: LIDIA MAHER Address: [address] [place] [address] Gender: F : 1960 (Age: 64) Service: Location: N : [id number] Hospital #: [id number] Patient Type: SPECIMEN Taken: 11/12/2024 Received: 11/13/2024 Accessioned: 11/13/2024 Physician(s): Shmuel Stewart M.D. Specimen(s) Received A: Blood (serum) Serum Protein Immunofixation/ImmunotypingReported:11/16/2024 Interpretation: Serum Protein Immunofixation: Normal serum immunofixation study. Comment: Serum Protein Immunofixation: Examination of G, A and M heavy chains as well as kappa and lambda light chains reveals no evidence of abnormal peaks. See [facility] and/or separate report for protein fraction table. Iggy Bernal MD PhDReport Electronically Reviewed and Signed Out By Iggy Bernal MD PhD 11/16/2024 08:50:08 The performance characteristics of some immunohistochemical stains, fluorescence in-situ hybridization tests and immunophenotyping by flow cytometry cited in this report (if any) were determined by the Surgical Pathology Department at [facility] as part of an ongoing quality assurance coach program and in compliance with federally mandated regulations drawn from the Clinical Laboratory Improvement Act of 1988 (CLIA '88). Some of these tests rely on the use of analyte specific reagents and are subject to specific labeling requirements by the US Food and Drug Administration. Such diagnostic tests may only be performed in a facility that is certified by the Department of Health and Human Services as a high complexity laboratory under CLIA '88. The FDA has determined that such clearance or approval is not necessary. This test is used for clinical purposes. It should not be regarded as investigational or for research. Nevertheless, federal rules concerning the medical use of analyte specific reagents require that the following disclaimer be attached to the report: This test was developed and its performance characteristics determined by the Surgical Pathology Department [facility]. It has not been cleared or approved by the U. S. Food and Drug Administration. REPORT IMAGES AND SCANNED DOCUMENTS, IF INCLUDED, ONLY VIEWABLE IN PDF VERSION OF REPORTe o Shmuel Stewart MD LAB PATHOLOGY ORDERABLES Fin al Result * (ABNORMAL) eGFR (11/12/2024 1:55 PM PRINT PRODUCTION ASSOCIATE) eGFR 27(L) >=60 mL/min/1. 73 m2 Comment: Interpretive Data Reference Interval Normal >/= 90 mL/min/1.73m2 Mildly decreased* 60 - 89 mL/min/1.73m2 Mildly to moderately decreased 45 - 59 mL/min/1.73m2 Moderately to severely decreased 30 - 44 mL/min/1.73m2 Severely decreased 15 - 29 mL/min/1.73m2 Kidney Failure < 15 mL/min/1.73m2 *Relative to young adult level Estimated glomerular filtration rate is determined by the 2020 CKD-EPI equation recommended by the National Kidney Foundation (A Unifying Approach to GFR Estimation: Recommendations of the NKF-ASK Task Force on Reassessing the Inclusion of Race in Diagnosing Kidney Disease, JASN 202). The CKD-EPI equation should not be used for patients with unstable renal function and has not been validated in children and those over 70. Current interpretive data was last reviewed 2021. Blood 11/12/2024 1:55 PM PRINT PRODUCTION ASSOCIATE 11/12/2024 11:28 PM PRINT PRODUCTION ASSOCIATE Shmuel Stewart MD LAB BLOOD [place]AB[place] [address] [address] [place] [address] * C4 complement (11/12/2024 1:55 PM PRINT PRODUCTION ASSOCIATE) Pathologist [facility] Complement C4 31 10 - 40 mg/dL Blood 11/12/2024 1:55 PM PRINT PRODUCTION ASSOCIATE 11/12/2024 11:28 PM PRINT PRODUCTION ASSOCIATE Narrative NEW - 11/12/2024 11:36 PM PRINT PRODUCTION ASSOCIATE Fax results to Dr Arielle Stewart [phone] Shmuel Stewart MD LAB BLOOD ORDERABLES Final R [facility] Performing Organization Address [facility] Co de Phone Number [place] [address] [address] [address] * (ABNORMAL) Immunoglobulin free light chains (11/12/2024 1:55 PM PRINT PRODUCTION ASSOCIATE) [facility] [place]/Lambda ratio 1.50 0.26 - 1.65 [place] free light chain 6.61(H) 0.33 - 1.94 mg/dL [facility] Comment: Interpretive Data The Nupur Ig [place] FLC assay procedure was used. Results from different manufacturers or methods may not be comparable. Serial testing should be performed using the same method. Lambda free light chain 4.28(H) 0.57 - 2.63 mg/dL [facility] Comment: Interpretive Data The Nupur Ig Lambda FLC assay procedure was used. Results from different manufacturers or methods may not be comparable. Serial testing should be performed using the same method. Blood 11/12/2024 1:55 PM PRINT PRODUCTION ASSOCIATE 11/12/2024 9:14 PM PRINT PRODUCTION ASSOCIATE Narrative NEW - 11/13/2024 7:18 AM PRINT PRODUCTION ASSOCIATE Fax results to Dr Arielle Stewart [phone] Shmuel Stewart MD LAB BLOOD ORDERABLES Final [facility] Performing Organization Address [facility] Co de Phone Number [place] [address] [address] [address] * (ABNORMAL) Urinalysis reflex to microscopic and culture Urine, clean voided (11/12/2024 1:55 PM PRINT PRODUCTION ASSOCIATE) Pathologist [facility] Color, ur Yellow Yellow Clarity, ur Turbid(A) Clear [facility]ER Specific gravity, ur 1.011 1.003 - 1.030 CERNER pH, urine 6.0 [facility]ER Comment: Interpretive Data U rine pH is affected by diet, medications, systemic acid-base disturbances, and renal tubular function. pH may affect urinary stone formation. For example, urine pH below 6.0 may help reduce the tendency for calcium phosphate stones and pH greater than 6.0 may reduce the tendency for uric acid stone formation. Source: [facility] Current Interpretive Data was last revised on 2017 Protein, ur ql 2+(A) Negative [facility] Glucose, ur ql Negative Negative [facility] Ketones, ur Negative Negative [facility] Bilirubin, ur Negative Negative [facility] Blood, ur Negative Negative [facility] Urobilinogen, ur <2.0 <2.0 mg/dL C[facility]ER Nitrite, ur Negative Negative [facility] Leukocyte esterase, ur 1+(A) Negative [facility] UA reflex comment Reflex to microscopic UA will be performed. [facility] Urine, clean voided 11/12/2024 1:55 PM PRINT PRODUCTION ASSOCIATE 11/12/2024 9:14 PM PRINT PRODUCTION ASSOCIATE Narrative CERNER - 11/12/2024 9:32 PM PRINT PRODUCTION ASSOCIATE Fax results to Dr Arielle Stewart [phone] Shmuel Stewart MD LAB MICROBIOLOGY - GENERAL O RDERABLES Final Result [facility] [address] [address] [place] [address] * (ABNORMAL) Protein / creatinine ratio, urine, random (11/12/2024 1:55 PM PRINT PRODUCTION ASSOCIATE) Protein, ur, quant 197.6 mg/dL Comment: Interpretive Data No reference range established. Current interpretive data was last revised 2019. Creatinine Ur 44.9 mg/dL [facility] Comment: Interpretive Data No reference range established. Current interpretive data was last revised 2019. Protein/creatinin e ratio 4,400.9(H ) 0.0 - 180.0 mg/g CR [facility] Urine 11/12/2024 1:55 PM PRINT PRODUCTION ASSOCIATE 11/12/2024 9:14 PM PRINT PRODUCTION ASSOCIATE Narrative NEW - 11/12/2024 10:10 PM PRINT PRODUCTION ASSOCIATE Fax results to Dr Arielle Stewart [phone] Shmuel Stewart MD LAB URINE ORDERABLES Final R esult Performing Organization Address [facility] Co de Phone Number KIMBERLYDAVID [address] [address] Department [place], [place] [id number] * (ABNORMAL) Urinalysis, microscopic only (11/12/2024 1:55 PM PRINT PRODUCTION ASSOCIATE) WBC, ur 0-5 0 - 5 /HPF RBC, ur 0-2 0 - 2 /HPF [facility] Epithelial cells, squamous, ur 1-5 0 - 5 /HPF [facility] Mucous, ur Present(A) [facility] Culture Reflex Comment Reflex conditions for urine culture (WBC >10) not met. [facility] Urine, clean voided 11/12/2024 1:55 PM PRINT PRODUCTION ASSOCIATE 11/12/2024 9:14 PM PRINT PRODUCTION ASSOCIATE Shmuel Stewart MD LAB URINE ORDERABLES Final R esult Performing Organization Address [facility] de Phone Number KIMBERLYDAVID GUILLEN [address] [address] [facility] [place] [address] * Erythrocyte sedimentation rate (11/12/2024 1:55 PM PRINT PRODUCTION ASSOCIATE) Erythrocyte sedimentation rate 15 1 - 30 mm/hr Blood (Blood, Venous) 11/12/2024 1:55 PM PRINT PRODUCTION ASSOCIATE 11/12/2024 9:14 PM PRINT PRODUCTION ASSOCIATE Narrative NEW - 11/12/2024 10:00 PM PRINT PRODUCTION ASSOCIATE Fax results to Dr Arielle Stewart [phone] Shmuel Stewart MD LAB BLOOD ORDERABLES Final R esult Performing Organization Address [facility] Co de Phone Number KIMBERLYDAVID GUILL[place] [address] [place] [address] * (ABNORMAL) CBC without differential (11/12/2024 1:55 PM PRINT PRODUCTION ASSOCIATE) Pathologist [facility] WBC 8.2 3.8 - 9.9 K/cumm Hgb 12.3 11.9 - 15.5 g/dL [facility] Hct 39.7 35.6 - 45.5 % [facility] Plt 356 150 - 400 K/cumm [facility] MPV 10.4 9.1 - 12.3 fL [facility] RBC 3.99 3.90 - 5.20 M/cumm [facility] MCV 99.5(H) 81.3 - 96.4 fL [facility] MCH 30.8 27.1 - 33.3 pg [facility] MCHC 31.0(L) 32.3 - 35.7 g/dL [facility] RDW CV 13.2 11.1 - 14.9 % [facility] RDW SD 48.6(H) 35.7 - 48.1 fL [facility] NRBC abs 0.00 0.00 - 0.01 K/cumm [facility] Blood (Blood, Venous) 11/12/2024 1:55 PM PRINT PRODUCTION ASSOCIATE 11/12/2024 9:14 PM PRINT PRODUCTION ASSOCIATE Narrative [facility] - 11/12/2024 9:42 PM PRINT PRODUCTION ASSOCIATE Fax results to Dr Arielle Stewart [phone] Shmuel Stewart MD LAB BLOOD ORDERABLES Final R esult [facility] [address] [address] [place] [address] * Complement, total (11/12/2024 1:55 PM PRINT PRODUCTION ASSOCIATE) Pathologist [facility] Complement hemolytic 64 30 - 75 units/mL Nielsen ref Lab Comment: Test Performed by: [facility] [address] [place] [address] Administrative Volunteer: Ilir Prado Ph.D.; CLIA# [id number] Blood (Blood, Venous) 11/12/2024 1:55 PM PRINT PRODUCTION ASSOCIATE 11/12/2024 9:14 PM PRINT PRODUCTION ASSOCIATE Narrative [facility] - 11/17/2024 1:19 PM PRINT PRODUCTION ASSOCIATE Fax results to Dr Arielle Stewart [phone] Shmuel Stewart MD LAB BLOOD ORDERABLES Final R esult Performing Organization Address [facility] Co de Phone Number NEW [address] Christina [facility] [place] [address] Nielsen ref Lab * C3 complement (11/12/2024 1:55 PM PRINT PRODUCTION ASSOCIATE) [facility] Complement C3 124 90 - 180 mg/dL Blood (Blood, Venous) 11/12/2024 1:55 PM PRINT PRODUCTION ASSOCIATE 11/12/2024 11:28 PM PRINT PRODUCTION ASSOCIATE Narrative [facility] 11/12/2024 11:36 PM PRINT PRODUCTION ASSOCIATE Fax results to Dr Arielle Stewart [phone] Shmuel Stewart MD LAB BLOOD ORDERABLES Final R [facility] Performing Organization Address [facility] Co de Phone Number [place] [address] [address] [place] [address] * (ABNORMAL) PTH (11/12/2024 1:55 PM PRINT PRODUCTION ASSOCIATE) [facility] PTH 81(H) 15 - 65 pg/mL Blood (Blood, Venous) 11/12/2024 1:55 PM PRINT PRODUCTION ASSOCIATE 11/12/2024 11:28 PM PRINT PRODUCTION ASSOCIATE Narrative [facility] - 11/12/2024 11:29 PM PRINT PRODUCTION ASSOCIATE Fax results to Dr Arielle Stewart [phone] Shmuel Stewart MD LAB BLOOD ORDERABLES Final R [facility] Performing Organization Address [facility] Co de Phone Number [place] [address] [facility] [place] [address] * Creatine kinase (CK), total (11/12/2024 1:55 PM PRINT PRODUCTION ASSOCIATE) [facility] CK 77 30 - 200 Units/L Blood (Blood, Venous) 11/12/2024 1:55 PM PRINT PRODUCTION ASSOCIATE 11/12/2024 11:28 PM PRINT PRODUCTION ASSOCIATE Narrative [facility] - 11/12/2024 11:43 PM PRINT PRODUCTION ASSOCIATE Fax results to Dr Arielle Stewart [phone] Shmuel Stewart MD LAB BLOOD ORDERABLES Final R esult CERNER [address] [address] [place] [address] * (ABNORMAL) Renal function panel (11/12/2024 1:55 PM PRINT PRODUCTION ASSOCIATE) Pathologist [facility] Sodium 138 135 - 145 mmol/L Potassium, pl 4.7 3.3 - 4.9 mmol/L [facility] Chloride 102 97 - 110 mmol/L [facility] CO2 24 22 - 32 mmol/L [facility] Anion gap 12 2 - 15 mmol/L [facility] BUN 36(H) 6 - 25 mg/dL [facility] Creatinine 2.06(H) 0.60 - 1.10 mg/dL [facility] Glucose 78 70 - 199 mg/dL [facility] Comment: Interpretive Data Fasting glucose >/= 126 mg/dl is diagnostic for diabetes. Fasting is defined as no caloric intake for at least 8 hours. Fasting glucose between 100 mg/dl to 125 mg/dl is diagnostic of prediabetes. In a patient with classic symptoms of hyperglycemia or hyperglycemic crisis, a random glucose >/= 200 mg/dl is diagnostic for diabetes. In the absence of unequivocal hyperglycemia, results should be confirmed by repeat testing. The classification and Diagnosis of Diabetes Diabetes Care 202; 46: S19-S40. Current interpretive data was last revised 2022. Calcium 9.2 8.5 - 10.3 mg/dL [facility] Phosphorus, pl 4.3 2.3 - 4.5 mg/dL [facility] Albumin 3.9 3.5 - 5.0 g/dL [facility] Blood (Blood, Venous) 11/12/2024 1:55 PM PRINT PRODUCTION ASSOCIATE 11/12/2024 11:28 PM PRINT PRODUCTION ASSOCIATE Narrative [facility] - 11/12/2024 11:29 PM PRINT PRODUCTION ASSOCIATE Fax results to Dr Arielle Stewart [phone] Shmuel Stewart MD LAB BLOOD ORDERABLES Final R esult [place] [address] [address] [place] [address] * SCREENING MAMMOGRAM BILATERAL W BRENDA (02/16/2022 2:29 PM CDT) Anatomical Region Laterality Modality Breast Bilateral Mammography 02/16/2022 2:41 PM CDT Impressions 02/16/2022 2:41 PM CDT There is no mammographic evidence of malignancy. Routine screening mammography is recommended in 1 year. BI-RADS: 1 - Negative. The patient will be entered into a reminder system with a target due date of 1 year for her next mammogram. Electronically signed by: Demarco Kovacs M.D. Narrative 02/16/2022 2:41 PM CDT EXAMINATION: SCREENING MAMMOGRAM BILATERAL W BRENDA ORDERING HEALTHCARE PROVIDER: JAMAAL SOLORIO HISTORY: Baseline screening mammography. COMPARISON: None available. TECHNIQUE: CC and MLO views of the bilateral breasts were obtained with digital technique using breast tomosynthesis with C view. Computer aided detection was utilized. FINDINGS: DENSITY: The tissue of the bilateral breasts is heterogeneously dense, which may obscure small masses. BREASTS: There are no suspicious masses, suspicious calcifications, or other suspicious findings in either breast. Jamaal Solorio MD IMG MAMMO PROCEDURES Lady l Result * Stool DNA - Cologuard (03/09/2021 1:30 PM CDT) Stool DNA - Cologuard Negative Not Applicable [facility] (CLIA #:[id number]) Comment: A negative result indicates a low likelihood that a colorectal cancer (CRC) or an advanced adenoma (adenomatous polyps with more advanced pre-malignant features) is present. The chance that a person with a negative Cologuard test has a colorectal cancer is less than 1 in 1500 (negative predictive value >99.9%) or has an advanced adenoma is less than 5.3% (negative predictive value 94.7%). These data are based on a prospective cross-sectional screening study of 10,000 individuals at average risk for colorectal cancer who were screened with both Cologuard and colonoscopy. (Radha Perez al, N Engl J Med 2014;370(14):1035-1818) The normal value (reference range) for this assay is negative. COLOGUARD RE-SCREENING RECOMMENDATION: Periodic routine colorectal cancer screening is an important part of preventive healthcare for asymptomatic persons at average risk for colorectal cancer. Following a negative Cologuard result, the [place] [employer] and U.S. Multi-Society Task Force screening guidelines recommend a Cologuard re-screening interval of 3 years. References: [place] [employer] (ACS). Colorectal cancer prevention and early detection. [place], [place]: [place] [employer]; [updated 2015Feb 12]. https://www.cancer.org/cancer/bbdqs-ogpxcu-hhkkbg/vcalpfasr-xmgivksgj-bjdxdou/ac s-rec ommendations.html. Accessed June 21, 2018; Mohinder DK, Renetta LOMAX, Keshawn CortezK, Colorectal Cancer Screening: Recommendations for Physicians and Patients from the U.S. Multi-Society Task Force on Colorectal Cancer Screening, Am J Gastroenterology 2017; 112:8418-2149. TEST TYPE: Composite algorithmic analysis of stool DNA-biomarkers with hemoglobin immunoassay. Quantitative values of individual biomarkers are not reportable and are not associated with individual biomarker result reference ranges. PRECAUTIONS AND LIMITATIONS: Cologuard is intended for colorectal cancer screening of adults of either sex, 45 years or older, who are at average-risk for colorectal cancer (CRC). Cologuard has been approved for use by the U.S. FDA. Cologuard may produce a false negative or false positive result. A negative Cologuard test result does not guarantee the absence of CRC or advanced adenoma (pre-cancer). Patients with a negative Cologuard test result should be advised to continue participating in a colorectal cancer screening program. The screening interval for Cologuard is currently recommended at an interval of every 3 years by the [place] [employer] and [place] Multi-Society Task Force. A false positive result occurs when Cologuard produces a positive result, even though a colonoscopy may not find colorectal cancer or precancerous polyps. The performance of Cologuard has been established in a cross sectional study (i.e., single point in time) of average-risk adults aged 50-84. Cologuard performance in patients ages 45 to 49 years was estimated by sub-group analysis of near-age groups. Cologuard performance data in a 10,000 patient pivotal study using colonoscopy as the reference method can be accessed at the following location: [email or web address]. Additional description of the Cologuard test process, warnings and precautions can be found at [email or web address].com. Rx only. Stool 03/09/2021 1:30 PM CDT 03/10/2021 4:58 PM CDT Jamaal Solorio MD LAB BODY FLUIDS AND STOOL S ORDERABLES Final Result Performing Organization Address [facility] Co de Phone Number [employer] (CLIA #:[id number]) [place] [address] * Hepatitis C antibody (02/04/2021 3:49 PM CDT) Hep C Ab Nonreactive Nonreactive [place] Comment: Interpretive Data Nonreactive: Antibodies to HCV not detected. Does NOT exclude the possibility of recent exposure to HCV. Equivocal: Equivocal for HCV antibodies. Supplemental molecular testing will be automatically performed to determine infection status in accordance with current CDC screening recommendations. Reactive: Positive for HCV antibodies. This may represent current or past HCV infection. Supplemental molecular testing will be automatically performed to determine current infection status in accordance with current CDC screening recommendations. Interpretive data was last revised on 2020. 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
--- OUTSIDE RECORDS SUMMARY | 2024-12-12 14:21 | XMS_ITS | Clinical Summary ---
Author Organization [facility] [address] [facility] Address [address] eduar [facility] [place] [address] Care Team Providers Care Library Circulation Assistant Name Role Phone Jamaal Solorio MD Primary Care Provider [phone] Allergies Active Allergy Reactions Criticality Noted Date [...] 09/10/2024 Assessment & Plan (09/10/2024 1:17 PM LPN INSTRUCTOR): Endorsing dysuria, low concern for pyelo at this time Will order UA and follow up with results Dyslipidemia 04/03/2024 Assessment & Plan (04/03/2024 1:20 PM CDT): Borderline high LDL and total cholesterol; encourage low-fat high-fiber diet Continue to monitor CKD (chronic kidney disease) stage 4, GFR 15-29 ml/min ([facility]) 04/03/2024 Assessment & Plan (09/10/2024 1:16 PM LPN INSTRUCTOR): No concern sin this regard, follow with precipitator Will continue to monitor peripherally Assessment & Plan (06/10/2024 2:16 PM CDT): For Nephrology; most recent EGFR was below 30, stable Bude and lambda light chains are elevated with normal ratio; positive RAMU Will follow recommendations per Nephrology Assessment & Plan (04/03/2024 1:20 PM CDT): Patient continues to have labile EGFR, with symptoms going up and down Will refer to nephrology for evaluation continue surveillance Attention deficit hyperactiv ity disorder (ADHD), predominantly hyperactive type 02/21/2024 Assessment & Plan (09/10/2024 4:02 PM LPN INSTRUCTOR): Pt stable in this regard and is [...] 11/10/2022 Assessment & Plan (09/10/2024 1:43 PM LPN INSTRUCTOR): Stable, is following with counselor and is [...] able Assessment & Plan (11/10/2022 1:10 PM LPN INSTRUCTOR): Reviewed pharmacologic treatment options for management of [...] 03/02/2021 Assessment & Plan (09/10/2024 1:12 PM LPN INSTRUCTOR): Mildly elevated at time of presentation, suspect [...] 03/02/2021 Assessment & Plan (09/10/2024 1:39 PM LPN INSTRUCTOR): Mood much improved Continue Wellbutrin XL Assessment & Plan (06/10/2024 2:15 PM CDT): Stable, patient continues to have significant grief related to loss of ; patient has begun to engage in outside activities, including going to sabianist; starting to go to stores at time; continues to have days of significant grief Recommend continued engagement with social activities, including sabianist as well as groups such as group share Assessment & Plan (04/03/2024 1:19 PM CDT): Not well controlled, acutely worsened; patient's recently Continue bupropion 450 mg daily; patient to follow up with individual counseling Patient given resources for grief Assessment & Plan (11/10/2022 1:09 PM LPN INSTRUCTOR): No changes, buspirone added to current regimen. [...] Sciatica 05/22/2017 Spasm of back muscles 05/22/2017 Encounters Date Type Department Care Team Description 11/19/2024 3:24 PM LPN INSTRUCTOR - 11/19/2024 11:59 PM LPN INSTRUCTOR Hospital Encounter [address] [address] Chronic kidney disease, stage IV (severe) (CMS/HCC) (HCC) Discharge Disposition: Discharge to home or self care 11/19/2024 3:15 PM LPN INSTRUCTOR Lab [facility] Outpatient Lab at [address] [address] Chronic kidney disease, stage IV (severe) (CMS/HCC) (HCC) (Primary Dx) 11/12/2024 1:55 PM LPN INSTRUCTOR - 11/12/2024 11:59 PM LPN INSTRUCTOR Hospital Encounter [address] [address] Chronic kidney disease, stage IV (severe) (CMS/HCC) (HCC) Discharge Disposition: Discharge to home or self care 11/12/2024 1:45 PM LPN INSTRUCTOR Lab [facility] Outpatient Lab at [address] [address] Chronic kidney disease, stage IV (severe) (CMS/HCC) (HCC) (Primary Dx); Hypertension, essential 10/01/2024 2:00 PM LPN INSTRUCTOR Therapy [facility] Warm Hand Off Program [address] [place], [place] [phone] Addie Fung, TRAFFIC OPERATIONS ENGINEER BHAVANI (generalized anxiety disorder) (Primary Dx); MDD (major depressive disorder), recurrent episode, moderate (HCC); Grief from Last 3 Months Immunizations Immunization Administration Dates Next Due Influenza, Trivalent, Preser vative Free, Intramuscular 09/10/2024 Influenza, Unspecified 08/22/2023,2021,12/16/2021(Defer red: Patient Refused),07/22/2021(Deferred: Patient Refused),10/22/2020(Deferred: Patient Refused),10/22/2020(Deferred: Patient Refused),10/22/2020(Deferred: Patient Refused),10/22/2020(Deferred: Patient Refused),07/22/2020(Deferred: Patient Refused),10/22/2019(Deferred: Patient Refused),10/22/2019(Deferred: Patient Refused),10/22/2019(Deferred: Patient Refused),10/22/2019(Deferred: Patient Refused) Pfizer SARS-CoV-2 Monovalent Vaccination (12+ Yrs) PURPLE 01/08/2021,12/18/2020 Tdap 02/04/2021,09/26/2016 Surgical History Surgery Date Site/Laterality Comments BACK SURGERY 10/22/2000 - 10/21/2001 x4 HYSTERECTOMY 10/22/1995 - 10/21/1996 ORAL SURGERY 07/22/2024 - 08/21/2024 [facility] Oral Surgery in [place] - bottom jaw bones removed Medical History Medical History Date Comments Depression Hypertension Back problem going to chiropr actor for 6 wks twice per week, not helping Smoking Family History Medical History Relation Name Comments Kidney cancer Father Breast cancer Mother Lung cancer Mother Thyroid disease Mother Thyroid disease Sister Relation Name Status Comments Brother 1 Alive Brother 2 Alive Brother 3 Alive Father (Age 55) Mother (Age 44) Sister Alive Social History Tobacco Use Types Packs/Day Years Used Date Smoking Tobacco: Former Cigarettes Smokeless Tobacco: Never Tobacco Cessation:Counseling Given: Not Answered [facility] Kaiima Answer Date Recorded In the past 12 months has Thrasos, gas, oil, or water Drinks4-you threatened to shut off services in your [...] often do you attend chur ch or jewish services? More than 4 times per year 06/24/2024 Do you belong to any clubs o r organizations such as sabianist groups, unions, fraternal or athletic groups, or [...] staff should administer the PHQ-9) 1 06/24/2024 [facility] - Occupational Stress Questionnaire Answer Date Recorded [...] any time in the past 12 m [facility], were you homeless or living in a fci (including now)? No 06/24/2024 Comments No Sex and Gender Information Value Date Recorded Sex Assigned at Not on file Legal Sex Female 8:39 AM CDT Gender Identity Not on file Sexual Orientation Not on file Obstetrics History Para Term AB IAB SAB Ectopic Multiple Livin g Live Births 2 2 2 Date Outcome GA Total Labor Labor/2nd/3rd Weight Sex Type Anes PTL Ijeoma A1 A5 Name Clin Term Term Last Filed Vital Signs Vital Sign Reading Time Taken Comments Blood Pressure 146/90 09/10/2024 10:37 AM LPN INSTRUCTOR Pulse 72 09/10/2024 10:37 AM LPN INSTRUCTOR Temperature 36.6 C (97.8 F) 09/10/2024 10:37 AM LPN INSTRUCTOR Respiratory Rate 18 09/10/2024 10:37 AM LPN INSTRUCTOR Oxygen Saturation 99% 09/10/2024 10:37 AM LPN INSTRUCTOR Inhaled Oxygen Concentration - - Weight 68.5 kg (151 lb) 09/10/2024 10:37 AM LPN INSTRUCTOR Height 165.1 cm (5' 5 ) 09/10/2024 10:37 AM LPN INSTRUCTOR Body Mass Index 25.13 09/10/2024 10:37 AM LPN INSTRUCTOR Plan of Treatment Health Maintenance Due Date Last Done Comments Regular Well Visit/Exam 18-64 1979 Zoster Vaccine (1 of 2) 2011 Breast Cancer Screening-Mammogram 02/16/2023 02/16/2022 Colon Cancer Screening-DNA Stool 03/09/2024 03/09/2021 Covid-19 Vaccine ( season) 2024 01/08/2021, 12/18/2020 Depression Screening 06/24/2025 06/24/2024, 02/21/2024, 02/21/2024, Additional history exists DTaP/Tdap/Td Vaccine (3 - Td or Tdap) 02/04/2031 02/04/2021, 09/26/2016 Hepatitis C Screening Completed 02/04/2021 Hepatitis B Screening Completed 04/01/2024 Influenza Vaccine Completed 09/10/2024, , 08/22/2022 Pneumococcal vaccine <65 Aged Out No longer eligible based on patient's age to complete this topic Procedures Procedure Name Priority Date/Time Associated Diagnosis Comments CLINICAL PATHOLOGY REPORT Routine 11/19/2024 9:00 AM LPN INSTRUCTOR IMMUNOFIXATION, URINE Routine 11/19/2024 9:00 AM LPN INSTRUCTOR Chronic kidney disease, stage IV (severe) (CMS/HCC) (HCC) UREA NITROGEN, URINE, 24 HOUR RESULT Routine 11/19/2024 9:00 AM LPN INSTRUCTOR Chronic kidney disease, stage IV (severe) (CMS/HCC) (HCC) VOLUME AND PERIOD, URINE, 24 HOUR Routine 11/19/2024 9:00 AM LPN INSTRUCTOR Chronic kidney disease, stage IV (severe) (CMS/HCC) (HCC) PROTEIN ELECTROPHORESIS, URINE, 24 HOUR RESULT Routine 11/19/2024 9:00 AM LPN INSTRUCTOR Chronic kidney disease, stage IV (severe) (CMS/HCC) (HCC) UREA NITROGEN, URINE, 24 HOUR Routine 11/19/2024 9:00 AM LPN INSTRUCTOR Chronic kidney disease, stage IV (severe) (CMS/HCC) (HCC) PROTEIN ELECTROPHORESIS, URINE, 24 HOUR WITH IMMUNOFIXATION Routine 11/19/2024 9:00 AM LPN INSTRUCTOR Chronic kidney disease, stage IV (severe) (CMS/HCC) (HCC) CLINICAL PATHOLOGY REPORT Routine 11/12/2024 1:55 PM LPN INSTRUCTOR EGFR Routine 11/12/2024 1:55 PM LPN INSTRUCTOR Chronic kidney disease, stage IV (severe) (CMS/HCC) (HCC) URINALYSIS, MICROSCOPIC ONLY Routine 11/12/2024 1:55 PM LPN INSTRUCTOR Chronic kidney disease, stage IV (severe) (CMS/HCC) (HCC) C3 COMPLEMENT Routine 11/12/2024 1:55 PM LPN INSTRUCTOR Chronic kidney disease, stage IV (severe) (CMS/HCC) (HCC) C4 COMPLEMENT Routine 11/12/2024 1:55 PM LPN INSTRUCTOR Chronic kidney disease, stage IV (severe) (CMS/HCC) (HCC) COMPLEMENT, TOTAL Routine 11/12/2024 1:5 5 PM LPN INSTRUCTOR Chronic kidney disease, stage IV (severe) (CMS/HCC) (HCC) CBC WITHOUT DIFFERENTIAL Routine 11/12/2024 1:55 PM LPN INSTRUCTOR Chronic kidney disease, stage IV (severe) (CMS/HCC) (HCC) CREATINE KINASE (CK), TOTAL Routine 11/12/2024 1:55 PM LPN INSTRUCTOR Chronic kidney disease, stage IV (severe) (CMS/HCC) (HCC) IMMUNOTYPING Routine 11/12/2024 1:55 PM LPN INSTRUCTOR Chronic kidney disease, stage IV (severe) (CMS/HCC) (HCC) IMMUNOGLOBULIN FREE LIGHT CHAINS Routine 11/12/2024 1:55 PM LPN INSTRUCTOR Chronic kidney disease, stage IV (severe) (CMS/HCC) (HCC) ERYTHROCYTE SEDIMENTATION RATE Routine 11/12/2024 1:55 PM LPN INSTRUCTOR Chronic kidney disease, stage IV (severe) (CMS/HCC) (HCC) RENAL FUNCTION PANEL Routine 11/12/2024 1:55 PM LPN INSTRUCTOR Chronic kidney disease, stage IV (severe) (CMS/HCC) (HCC) RAMU QUALITATIVE WITH REFLEX TO RAMU QUANTITATIVE Routine 11/12/2024 1:55 PM LPN INSTRUCTOR Chronic kidney disease, stage IV (severe) (CMS/HCC) (HCC) PTH Routine 11/12/2024 1:55 PM LPN INSTRUCTOR Chronic kidney disease, stage IV (severe) (CMS/HCC) (HCC) PROTEIN / CREATININE RATIO, URINE, RANDOM Routine 11/12/2024 1:55 PM LPN INSTRUCTOR Chronic kidney disease, stage IV (severe) (CMS/HCC) (HCC) URINALYSIS AND REFLEX TO MICROSCOPIC AND CULTURE Routine 11/12/2024 1:55 PM LPN INSTRUCTOR Chronic kidney disease, stage IV (severe) (CMS/HCC) [...] * Clinical pathology report (11/19/2024 9:00 AM LPN INSTRUCTOR) Miscellaneous 11/19/2024 9:0 0 AM LPN INSTRUCTOR 11/20/2024 8:35 AM LPN INSTRUCTOR Narrative 11/20/2024 4:35 PM LPN INSTRUCTOR [facility] results best viewed via link to PDF [facility] Department of Pathology [address] [place] [id number] Final Report Note to Patients: This [...] the details. Patient Name: LIDIA MAHER Address: [address] [place] [address] Gender: F : 1960 (Age: 64) Service: Location: Hospital #: [id number] Patient Type: SPECIMEN Taken: 11/19/2024 Received: 11/20/2024 [...] determined by the Surgical Pathology Department at [facility] as part of an ongoing quality systems engineer program and in compliance with federally mandated [...] characteristics determined by the Surgical Pathology Department [facility]. It has not been cleared or approved by the U. S. Food and Drug Administration. REPORT IMAGES AND SCANNED DOCUMENTS, IF INCLUDED, ONLY VIEWABLE IN PDF VERSION OF REPORTe o Shmuel Stewart MD LAB PATHOLOGY ORDERABLES Fin al Result * Volume and period, urine, 24 hour (11/19/2024 9:00 AM LPN INSTRUCTOR) Volume, ur 1,500 mL Period, Urine Collection 1,500 min [facility] Urine 11/19/2024 9:00 AM LPN INSTRUCTOR 11/19/2024 11:45 PM LPN INSTRUCTOR Narrative CERNER CH - 11/20/2024 12:15 AM LPN INSTRUCTOR Fax results to Dr Shmuel Stewart [phone] Shmuel Stewart MD LAB URINE ORDERABLES Final R esult Performing Organization Address [facility] de [place] Number NEW [address] [address] [facility] [place] [address] * Urea nitrogen, urine, 24 hour (11/19/2024 9:00 AM LPN INSTRUCTOR) Urea nitrogen, 24 hr ur 7 5 - 20 g/24H Urine 11/19/2024 9:00 AM LPN INSTRUCTOR 11/19/2024 11:45 PM LPN INSTRUCTOR Narrative NEW - 11/20/2024 12:25 AM LPN INSTRUCTOR Fax results to Dr Shmuel Stewart [phone] Shmuel Stewart MD LAB URINE ORDERABLES Final [facility] Performing Organization Address [facility] de [place] [address] [address] [facility] [place] [address] * (ABNORMAL) Protein electrophoresis, urine, 24 hour (11/19/2024 9:00 AM LPN INSTRUCTOR) Protein, ur, quant 175.7 mg/dL Comment:No reference range e stablished. Albumin, Ur 75.3 % CERNER Comment:No reference range e stablished. Alpha-1 globulin, Ur 7.8 % CERNER Comment:No reference range e stablished. Alpha-2 globulin, Ur 3.2 % CERNER Comment:No reference range e stablished. Beta globulin, Ur 6.4 % CERNER Comment:No reference range e stablished. Gamma globulin, Ur 7.3 % CERNER Comment:No reference range e stablished. UPEP interp See Cl Path Rpt CERNER Protein, 24 hr, ur 2,530(H) 1 - 150 mg/24H [facility] Urine 11/19/2024 9:0 0 AM LPN INSTRUCTOR 11/19/2024 11:45 PM LPN INSTRUCTOR Narrative CERNER - 11/21/2024 12:21 PM LPN INSTRUCTOR Fax results to Dr Shmuel Stewart [phone] Shmuel Stewart MD LAB URINE ORDERABLES Final R esult Performing Organization Address City/[facility] Co de Phone Number KIMBERLYDAVID [address] [address] Department [address] [place], [place] [id number] * Immunofixation, urine (11/19/2024 9:00 AM LPN INSTRUCTOR) Immunofixation , Ur See Cl Path Rpt Urine 11/19/2024 9:00 AM LPN INSTRUCTOR 11/19/2024 11:45 PM LPN INSTRUCTOR Shmuel Stewart MD LAB URINE ORDERABLES Final R esult Performing Organization Address [facility] de [place] NEW [address] [address] [place] [address] * Immunotyping, serum (11/12/2024 1:55 PM LPN INSTRUCTOR) Immunofixation See Cl Path Rpt Blood 11/12/2024 1:55 PM LPN INSTRUCTOR 11/12/2024 9:14 PM LPN INSTRUCTOR Narrative [facility] - 11/13/2024 12:12 PM LPN INSTRUCTOR Fax results to Dr Arielle Stewart [phone] Shmuel Stewart MD LAB BLOOD ORDERABLES Final R esult Performing Organization Address [facility] Co [place] Number [place] [address] [address] [place] [address] * (ABNORMAL) RAMU ab ql w/rflx to RAMU qn (11/12/2024 1:55 PM LPN INSTRUCTOR) RAMU Positive 1:320 Comment: Interpretive Data Normal [...] last revised on 2020. Testing performed by: [facility], [address] [place]., [address] RAMU, quant 1:320 titer NEW GUILLEN Comment:Testing performed by : [facility], [address] [place]., [address] RAMU, interp Homogeneous (A) NEW GUILLEN Comment:Testing performed by : [facility], [address] [place] [address]., [id number] Blood 11/12/2024 1:55 PM LPN INSTRUCTOR 11/13/2024 10:13 AM LPN INSTRUCTOR Narrative NEW - 11/14/2024 1:07 PM LPN INSTRUCTOR Fax results to Dr Arielle Stewart [phone] Shmuel Stewart MD LAB BLOOD ORDERABLES Final R esult Performing Organization Address City/State/[facility] Co de Phone Number NEW [address] Department [place] [address] * Clinical pathology report (11/12/2024 1:55 PM LPN INSTRUCTOR) Miscellaneous 11/12/2024 1:5 5 PM LPN INSTRUCTOR 11/13/2024 8:31 AM LPN INSTRUCTOR Narrative 11/16/2024 8:50 AM LPN INSTRUCTOR EPIC results best viewed via link to PDF [facility] Department of Pathology [address] [place] [id number] Final Report Note to Patients: This [...] the details. Patient Name: LIDIA MAHER Address: [address] [place] [address] Gender: F : 1960 (Age: 64) Service: Location: N : [id number] [facility] #: [id number] Patient Type: SPECIMEN Taken: 11/12/2024 Received: 11/13/2024 Accessioned: 11/13/2024 Physician(s): Shmuel Stewart M.D. Specimen(s) Received A: Blood (serum) Serum Protein Immunofixation/ImmunotypingReported:11/16/2024 Interpretation: Serum Protein Immunofixation: Normal serum immunofixation study. Comment: Serum Protein Immunofixation: Examination of G, A and M heavy chains as well as kappa and lambda light chains reveals no evidence of abnormal peaks. See Epic and/or separate report for protein fraction table. Iggy Bernal MD PhDReport Electronically Reviewed and Signed Out By Iggy Bernal MD PhD 11/16/2024 08:50:08 The performance characteristics of some immunohistochemical stains, fluorescence in-situ hybridization tests and immunophenotyping by flow cytometry cited in this report (if any) were determined by the Surgical Pathology Department at [facility] as part of an ongoing quality systems engineer program and in compliance with federally mandated [...] characteristics [facility]. It has not been cleared or approved by the U. S. Food and Drug Administration. REPORT IMAGES AND SCANNED DOCUMENTS, IF INCLUDED, ONLY VIEWABLE IN PDF VERSION OF REPORTe o Shmuel Stewart MD LAB PATHOLOGY ORDERABLES Fin al Result * (ABNORMAL) eGFR (11/12/2024 1:55 PM LPN INSTRUCTOR) eGFR 27(L) >=60 mL/min/1. 73 m2 Comment: [...] of Race in Diagnosing Kidney Disease, JASN 2020). The CKD-EPI equation should not be used for patients with unstable renal function and has not been validated in children and those over 70. Current interpretive data was last reviewed 2021. Blood 11/12/2024 1:55 PM LPN INSTRUCTOR 11/12/2024 11:28 PM LPN INSTRUCTOR Shmuel Stewart MD LAB BLOOD ORDERABLES Final R esult [place]EN [address] [address] Department [place] [address] * C4 complement (11/12/2024 1:55 PM LPN INSTRUCTOR) Complement C4 31 10 - 40 mg/dL Blood 11/12/2024 1:55 PM LPN INSTRUCTOR 11/12/2024 11:28 PM LPN INSTRUCTOR Narrative NEW Becerra 11/12/2024 11:36 PM LPN INSTRUCTOR Fax results to Dr Arielle Stewart [phone] Shmuel Stewart MD LAB BLOOD ORDERABLES Final [facility] Performing Organization Address [facility] de Phone Number [facility] [address] [place] [address] * (ABNORMAL) Immunoglobulin free light chains (11/12/2024 1:55 PM LPN INSTRUCTOR) Pathologist [facility] Bude/Lambda ratio 1.50 0.26 - 1.65 Bude free light chain 6.61(H) 0.33 - 1.94 mg/dL [facility] Comment: Interpretive Data The Nupur Ig Bude FLC assay procedure was used. Results from different manufacturers or methods may not be comparable. Serial testing should be performed using the same method. Lambda free light chain 4.28(H) 0.57 - 2.63 mg/dL [facility] Comment: Interpretive Data The Nupur Ig Lambda FLC assay procedure was used. Results from different manufacturers or methods may not be comparable. Serial testing should be performed using the same method. Blood 11/12/2024 1:55 PM LPN INSTRUCTOR 11/12/2024 9:14 PM LPN INSTRUCTOR Narrative [facility] - 11/13/2024 7:18 AM LPN INSTRUCTOR Fax results to Dr Arielle Stewart [phone] Shmuel Stewart MD LAB BLOOD ORDERABLES Final [facility] Performing Organization Address [facility] de Phone Number [facility] [address] [place] [address] * (ABNORMAL) Urinalysis reflex to microscopic and culture Urine, clean voided (11/12/2024 1:55 PM LPN INSTRUCTOR) Color, ur Yellow Yellow Clarity, ur Turbid(A) Clear [facility] Specific gravity, ur 1.011 1.003 - 1.030 [facility] pH, urine 6.0 [facility] Comment: Interpretive Data U rine pH is affected by diet, medications, systemic acid-base disturbances, and renal tubular function. pH may affect urinary stone formation. For example, urine pH below 6.0 may help reduce the tendency for calcium phosphate stones and pH greater than 6.0 may reduce the tendency for uric acid stone formation. Source: [facility] Current Interpretive Data was last revised on [...] Reflex to microscopic UA will be performed. [facility] Urine, clean voided 11/12/2024 1:55 PM LPN INSTRUCTOR 11/12/2024 9:14 PM LPN INSTRUCTOR Narrative [facility] - 11/12/2024 9:32 PM LPN INSTRUCTOR Fax results to Dr Arielle Stewart [phone] Shmuel Stewart MD LAB MICROBIOLOGY - GENERAL O RDERABLES Final Result Performing Organization Address [facility] de Phone Number [facility] [address] [address] Department [place] [address] * (ABNORMAL) Protein / creatinine ratio, urine, random (11/12/2024 1:55 PM LPN INSTRUCTOR) Protein, ur, quant 197.6 mg/dL Comment: Interpretive Data No reference range established. Current interpretive data was last revised 2019. Creatinine Ur 44.9 mg/dL [facility] Comment: Interpretive Data No reference range established. Current interpretive data was last revised 2019. Protein/creatinin e ratio 4,400.9(H ) 0.0 - 180.0 mg/g CR [facility] Urine 11/12/2024 1:55 PM LPN INSTRUCTOR 11/12/2024 9:14 PM LPN INSTRUCTOR Narrative [facility] - 11/12/2024 10:10 PM LPN INSTRUCTOR Fax results to Dr Arielle Stewart [phone] Shmuel Stewart MD LAB URINE ORDERABLES Final R esult Performing Organization Address [facility] de Phone Number [facility] [address] [address] [place] [address] * (ABNORMAL) Urinalysis, microscopic only (11/12/2024 1:55 PM LPN INSTRUCTOR) Pathologist [facility] WBC, ur 0-5 0 - 5 /HPF RBC, ur 0-2 0 - 2 /HPF [facility] Epithelial cells, squamous, ur 1-5 0 - 5 /HPF [facility] Mucous, ur Present(A) [facility] Culture Reflex Comment Reflex conditions for urine culture (WBC >10) not met. [facility] Urine, clean voided 11/12/2024 1:55 PM LPN INSTRUCTOR 11/12/2024 9:14 PM LPN INSTRUCTOR Shmuel Stewart MD LAB URINE ORDERABLES Final [facility] Performing Organization Address [facility] de Phone Number [facility] GUILLEN [address] [address] [place] [address] * Erythrocyte sedimentation rate (11/12/2024 1:55 PM LPN INSTRUCTOR) [facility] Erythrocyte sedimentation rate 15 1 - 30 mm/hr Blood (Blood, Venous) 11/12/2024 1:55 PM LPN INSTRUCTOR 11/12/2024 9:14 PM LPN INSTRUCTOR Narrative [facility] - 11/12/2024 10:00 PM LPN INSTRUCTOR Fax results to Dr Arielle Stewart [phone] Shmuel Stewart MD LAB BLOOD ORDERABLES Final [facility] Performing Organization Address [facility] [facility] Co de Phone Number [facility] [address] [place] [address] * (ABNORMAL) CBC without differential (11/12/2024 1:55 PM LPN INSTRUCTOR) [facility] WBC 8.2 3.8 - 9.9 K/cumm Hgb 12.3 11.9 - 15.5 g/dL [facility] Hct 39.7 35.6 - 45.5 % [facility] Plt 356 150 - 400 K/cumm CERNER [...] CH Blood (Blood, Venous) 11/12/2024 1:55 PM LPN INSTRUCTOR 11/12/2024 9:14 PM LPN INSTRUCTOR Narrative NEW [facility] - 11/12/2024 9:42 PM LPN INSTRUCTOR Fax results to Dr Arielle Stewart [phone] Shmuel Stewart MD LAB BLOOD ORDERABLES Final R esult Performing Organization Address [facility] Co de Phone Number [place] [address] [place] [address] * Complement, total (11/12/2024 1:55 PM LPN INSTRUCTOR) Complement hemolytic 64 30 - 75 units/mL Nielsen ref Lab Comment: Test Performed by: [place] [address] Home Energy Consultant: Ilir Prado Ph.D.; CLIA# [id number] Blood (Blood, Venous) 11/12/2024 1:55 PM LPN INSTRUCTOR 11/12/2024 9:14 PM LPN INSTRUCTOR Narrative NEW [facility] - 11/17/2024 1:19 PM LPN INSTRUCTOR Fax results to Dr Arielle Stewart [phone] Shmuel Stewart MD LAB BLOOD ORDERABLES Final R esult Performing Organization Address [facility] Co de Phone Number [place] [address] [place] [address] [facility] ref Lab * C3 complement (11/12/2024 1:55 PM LPN INSTRUCTOR) Pathologist [facility] Complement C3 124 90 - 180 mg/dL Blood (Blood, Venous) 11/12/2024 1:55 PM LPN INSTRUCTOR 11/12/2024 11:28 PM LPN INSTRUCTOR Narrative KIMBERLYNER - 11/12/2024 11:36 PM LPN INSTRUCTOR Fax results to Dr Arielle Stewart [phone] Shmuel Stewart MD LAB BLOOD ORDERABLES Final R esult Performing Organization Address [facility] Co de Phone Number [place]IM[place]DAVID [place] [address] [facility] [place], [place] [id number] * (ABNORMAL) PTH (11/12/2024 1:55 PM LPN INSTRUCTOR) [facility] PTH 81(H) 15 - 65 pg/mL Blood (Blood, Venous) 11/12/2024 1:55 PM LPN INSTRUCTOR 11/12/2024 11:28 PM LPN INSTRUCTOR Narrative NEW - 11/12/2024 11:29 PM LPN INSTRUCTOR Fax results to Dr Arielle Stewart [phone] Shmuel Stewart MD LAB BLOOD ORDERABLES Final R [facility] Performing Organization Address [facility] Co de Phone Number KIMBERLYDAVID [place] [address] Department [place], [place] [id number] * Creatine kinase (CK), total (11/12/2024 1:55 PM LPN INSTRUCTOR) [facility] CK 77 30 - 200 Units/L Blood (Blood, Venous) 11/12/2024 1:55 PM LPN INSTRUCTOR 11/12/2024 11:28 PM LPN INSTRUCTOR Narrative KIMBERLYNER - 11/12/2024 11:43 PM LPN INSTRUCTOR Fax results to Dr Arielle Stewart [phone] Shmuel Stewart MD LAB BLOOD ORDERABLES Final R esult Performing Organization Address [facility] Co de Phone Number KIMBERLYDAVID [place] [address] Department [place] [address] * (ABNORMAL) Renal function panel (11/12/2024 1:55 PM LPN INSTRUCTOR) Sodium 138 135 - 145 mmol/L Potassium, [...] CH Blood (Blood, Venous) 11/12/2024 1:55 PM LPN INSTRUCTOR 11/12/2024 11:28 PM LPN INSTRUCTOR Narrative CERNER CH - 11/12/2024 11:29 PM LPN INSTRUCTOR Fax results to Dr Arielle Stewatr [phone] Shmuel Stewart MD LAB BLOOD ORDERABLES Final R esult [place] [address] Department [place] [address] * SCREENING MAMMOGRAM BILATERAL W BRENDA (02/16/2022 [...] or other suspicious findings in either breast. us Jamaal Solorio MD IMG MAMMO PROCEDURES Lady l Result * Stool DNA - Cologuard (03/09/2021 1:30 PM CDT) Stool DNA - Cologuard Negative Not Applicable [employer] (CLIA #:[id number]) Comment: A negative result indicates a low [...] (Radha Perez al, N Engl J Med 2014;370(14):0013-9696) The normal value (reference range) for this assay is negative. COLOGUARD RE-SCREENING RECOMMENDATION: Periodic routine colorectal cancer screening is an important part of preventive healthcare for asymptomatic persons at average risk for colorectal cancer. Following a negative Cologuard result, the [place] [employer] Society and U.S. Multi-Society Task Force screening guidelines recommend a Cologuard re-screening interval of 3 years. References: [place] [employer] Society (ACS). Colorectal cancer prevention and early detection. [place], [place]: [place] [employer]; [updated 2015Feb 12]. https://www.cancer.org/cancer/exzqa-cklbvd-rbvgvq/fbwijbotd-oyhizgsyf-bxyszqw/ac s-rec ommendations.html. Accessed June 21, 2018; Mohinder DK, Renetta LOMAX, Keshawn GORE, Colorectal Cancer Screening: Recommendations for Physicians and Patients from the U.S. Multi-Society Task Force on Colorectal Cancer Screening, Am J Gastroenterology 2017; 112:1729-5538. TEST TYPE: Composite algorithmic analysis of stool [...] interval of every 3 years by the [place] [employer] Society and U.S. Multi-Society Task Force. [...] can be accessed at the following location: www.[facility]/results. Additional description of the Cologuard test process, warnings and precautions can be found at www.cologuardtest.com. Rx only. Stool 03/09/2021 1:30 PM CDT 03/10/2021 4:58 PM CDT Jamaal Solorio MD LAB BODY FLUIDS AND STOOL S ORDERABLES Final Result Performing Organization Address [facility] Co de Phone Number [facility] (CLIA #:[id number]) [address] [place] [address] * Hepatitis C antibody (02/04/2021 3:49 PM [...] MICROBIOLOGY - GENERA L ORDERABLES Final Result Performing Organization Address [facility] Co de Phone Number [place] [address] [address] Department [place] [address] from Last 3 Months or Most Recently Relevant to Health Maintenance Insurance [facility] [employer] Care Teams Library Circulation Assistant Relationship Specialty Start Date End Date Jamaal [place] [address] PCP - General Family Medicine 01/11/21
[2024-12-12 14:57] LABS: Hematocrit 34.2 % (37.0-47.0); Hemoglobin 10.8 g/dL (12.0-15.0); Mean Corpuscular HGB Conc 31.6 g/dl (32-36); Mean Corpuscular Hemoglobin 30.8 pg (26-34); Mean Corpuscular Volume 97.4 fl (80-100); Mean Platelet Volume 10.1 fl (7.4-10.4); Platelet Count Result 433 k/mm3 (150-375); Red Blood Count 3.51 M/mm3 (4.2-5.4); Red Cell Distribution Width 13.2 % (11.5-14.5); White Blood Count 7.8 K/mm3 (4.5-10.0)
[2024-12-12 15:14] LABS: Albumin Level 3.4 g/dL (3.5-5.1); Anion Gap 10 mmol/L (4-12); Blood Urea Nitrogen 54 mg/dL (7-17); Calcium 8.6 mg/dL (8.4-10.2); Carbon Dioxide 23 mmol/L (22-30); Chloride 106 mmol/L (98-107); Estimated Glomerular Filt Rate 22; Glucose 85 mg/dL (65-110); Potassium 4.9 mmol/L (3.4-5.0); Sodium 139 mmol/L (137-145)
[2024-12-12 15:19] LABS: Total Protein Urine Random 164 mg/dL; Ur Ttl Prot Creatinine Ratio 3.22 mg/mg (0-0.20)
[2024-12-12 15:27] LABS: Parathyroid Intact 141.7 pg/mL (14.5-75.2)
== END 2024-12-12 14:18 | disposition home or self-care (01) ==
PROVIDERS: PCP Hospitalist; Visit Provider Internal Medicine Nephrology
DX: N18.4 Chronic kidney disease, stage 4 (severe) (principal)
CPT/HCPCS: 36415; 80069; 82570; 83970; 84156; 85027

== ENCOUNTER 2024-12-15 12:42 | Outpatient (CLI) | payer OTHER, SELFPAY ==
[2024-12-15 13:35] LABS: Rheumatoid Factor < 12.0 IU/ML (<12)
[2024-12-15 13:59] LABS: Erythrocyte Sedimentation Rate 37 mm/hr (0-20)
--- OUTSIDE RECORDS SUMMARY | 2024-12-15 14:21 | XMS_ITS | Clinical Summary ---
Author Organization [facility] [employer] Address [address] [place] [address] Care Team Providers Care Policy Adviser Name Role Phone Unavailable Primary Care Provider Unavailabl e Source Comments [facility] [employer],non-owned Affiliates and Associated Physician Practices is amultiple site organization consisting of ambulatory clinics and hospital sitesin [place], [place], [place] and [place]. This disclosure is being madepursuant to the Care Everywhere program and may not contain all information available regarding this patient. Last updated 18.[facility] [employer] Allergies Active Allergy Reactions Criticality Noted Date Comments Hydrochlorothiazide Nausea and/or Vomiting Medium 11/0 10/2015 Sulfa Drugs Vomiting 04/03/2019 Hydrocodone-Acetaminophen Psychiatric,Vomiting Medium 04/03/2019 Medications * Be aware that medications may not be up to date on this document. Alwaysverify current medications with the patient. Medication Sig Dispensed Refills Start Date End Date Status fluticasone propionate (FLONASE) 50 MCG/ACT nasal spray Hermann 2 sprays into each nostril once daily [...] Comments Blood Pressure 128/78 10/04/2020 2:44 PM SOLIDS CONTROL TECHNICIAN Pulse 88 10/04/2020 2:44 PM SOLIDS CONTROL TECHNICIAN Temperature 36.8 C (98.2 F) 10/04/2020 2:44 PM SOLIDS CONTROL TECHNICIAN Respiratory Rate 20 10/04/2020 2:44 PM SOLIDS CONTROL TECHNICIAN Oxygen Saturation 97% 11/01/2019 4:10 PM SOLIDS CONTROL TECHNICIAN Inhaled Oxygen Concentration - - Weight 86.2 kg (190 lb) 11/01/2019 4:10 PM SOLIDS CONTROL TECHNICIAN Height 165.1 cm (5' 5 ) 11/01/2019 4:10 PM SOLIDS CONTROL TECHNICIAN Body Mass Index 31.62 11/01/2019 4:10 PM SOLIDS CONTROL TECHNICIAN Plan of Treatment Health Maintenance Due Date [...]
--- OUTSIDE RECORDS SUMMARY | 2024-12-15 14:21 | XMS_ITS | Clinical Summary ---
Author Organization [facility] Facility Address [address] [address] Care Team Providers Care Chef Instructor Name Role Phone Jamaal Garcia MD Primary Care Provider [phone] Allergies Active Allergy Reactions Criticality Noted Date [...] age to complete this topic Care Teams Chef Instructor Relationship Specialty Start Date End Date Jamaal Garcia MD [place] [address] PCP - General Family Medicine 06/19/22
--- OUTSIDE RECORDS SUMMARY | 2024-12-15 14:21 | XMS_ITS | Clinical Summary ---
Author Organization [facility] [address] [facility] Address [address] eduar [facility] [place] [address] Care Team Providers Care Emery Grinder Name Role Phone Jamaal Solorio MD Primary Care Provider [phone] Allergies Active Allergy Reactions Criticality Noted Date [...] 09/10/2024 Assessment & Plan (09/10/2024 1:17 PM BANKING SERVICES OFFICER): Endorsing dysuria, low concern for pyelo at this time Will order UA and follow up with results Dyslipidemia 04/03/2024 Assessment & Plan (04/03/2024 1:20 PM CDT): Borderline high LDL and total cholesterol; encourage low-fat high-fiber diet Continue to monitor CKD (chronic kidney disease) stage 4, GFR 15-29 ml/min ([facility]) 04/03/2024 Assessment & Plan (09/10/2024 1:16 PM BANKING SERVICES OFFICER): No concern sin this regard, follow with nailing machine operator Will continue to monitor peripherally Assessment & Plan (06/10/2024 2:16 PM CDT): For Nephrology; most recent EGFR was below 30, stable [place] and lambda light chains are elevated with normal ratio; positive RAMU Will follow recommendations per Nephrology Assessment & Plan (04/03/2024 1:20 PM CDT): Patient continues to have labile EGFR, with symptoms going up and down Will refer to nephrology for evaluation continue surveillance Attention deficit hyperactiv ity disorder (ADHD), predominantly hyperactive type 02/21/2024 Assessment & Plan (09/10/2024 4:02 PM BANKING SERVICES OFFICER): Pt stable in this regard and is [...] 11/10/2022 Assessment & Plan (09/10/2024 1:43 PM BANKING SERVICES OFFICER): Stable, is following with counselor and is [...] able Assessment & Plan (11/10/2022 1:10 PM BANKING SERVICES OFFICER): Reviewed pharmacologic treatment options for management of [...] 03/02/2021 Assessment & Plan (09/10/2024 1:12 PM BANKING SERVICES OFFICER): Mildly elevated at time of presentation, suspect [...] 03/02/2021 Assessment & Plan (09/10/2024 1:39 PM BANKING SERVICES OFFICER): Mood much improved Continue Wellbutrin XL Assessment & Plan (06/10/2024 2:15 PM CDT): Stable, patient continues to have significant grief related to loss of ; patient has begun to engage in outside activities, including going to pentecostalism; starting to go to stores at time; continues to have days of significant grief Recommend continued engagement with social activities, including pentecostalism as well as groups such as group share Assessment & Plan (04/03/2024 1:19 PM CDT): Not well controlled, acutely worsened; patient's recently Continue bupropion 450 mg daily; patient to follow up with individual counseling Patient given resources for grief Assessment & Plan (11/10/2022 1:09 PM BANKING SERVICES OFFICER): No changes, buspirone added to current regimen. [...] Department Care Team Description 11/19/2024 3:24 PM BANKING SERVICES OFFICER - 11/19/2024 11:59 PM BANKING SERVICES OFFICER Hospital Encounter [address] [address] Chronic kidney disease, stage IV (severe) (CMS/HCC) (HCC) Discharge Disposition: Discharge to home or self care 11/19/2024 3:15 PM BANKING SERVICES OFFICER Lab [facility] Outpatient Lab at [address] [address] Chronic kidney disease, stage IV (severe) (CMS/HCC) (HCC) (Primary Dx) 11/12/2024 1:55 PM BANKING SERVICES OFFICER - 11/12/2024 11:59 PM BANKING SERVICES OFFICER Hospital Encounter [address] [address] Chronic kidney disease, stage IV (severe) (CMS/HCC) (HCC) Discharge Disposition: Discharge to home or self care 11/12/2024 1:45 PM BANKING SERVICES OFFICER Lab [facility] Medical [facility] Outpatient Lab at [address] [address] Chronic kidney disease, stage IV (severe) (CMS/HCC) (HCC) (Primary Dx); Hypertension, essential 10/01/2024 2:00 PM BANKING SERVICES OFFICER Therapy [facility] Warm Hand Off Program [address] [place], [place] [phone] Addie 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 Oral Surgery in [place] - bottom jaw bones removed Medical History [...] Tobacco: Never Tobacco Cessation:Counseling Given: Not Answered [facility] [employer] Answer Date Recorded In the past 12 months has [employer] gas, oil, or water [employer] threatened to shut off services in your [...] often do you attend chur ch or sabianist services? More than 4 times per year 06/24/2024 Do you belong to any clubs o r organizations such as pentecostalism groups, unions, fraternal or athletic groups, or [...] staff should administer the PHQ-9) 1 06/24/2024 [facility] - Occupational Stress Questionnaire Answer Date Recorded [...] any time in the past 12 [facility], were you homeless or living in a retirement (including now)? No 06/24/2024 Comments No Sex [...] Comments Blood Pressure 146/90 09/10/2024 10:37 AM BANKING SERVICES OFFICER Pulse 72 09/10/2024 10:37 AM BANKING SERVICES OFFICER Temperature 36.6 C (97.8 F) 09/10/2024 10:37 AM BANKING SERVICES OFFICER Respiratory Rate 18 09/10/2024 10:37 AM BANKING SERVICES OFFICER Oxygen Saturation 99% 09/10/2024 10:37 AM BANKING SERVICES OFFICER Inhaled Oxygen Concentration - - Weight 68.5 kg (151 lb) 09/10/2024 10:37 AM BANKING SERVICES OFFICER Height 165.1 cm (5' 5 ) 09/10/2024 10:37 AM BANKING SERVICES OFFICER Body Mass Index 25.13 09/10/2024 10:37 AM BANKING SERVICES OFFICER Plan of Treatment Health Maintenance Due Date [...] CLINICAL PATHOLOGY REPORT Routine 11/19/2024 9:00 AM BANKING SERVICES OFFICER IMMUNOFIXATION, URINE Routine 11/19/2024 9:00 AM BANKING SERVICES OFFICER Chronic kidney disease, stage IV (severe) (CMS/HCC) (HCC) UREA NITROGEN, URINE, 24 HOUR RESULT Routine 11/19/2024 9:00 AM BANKING SERVICES OFFICER Chronic kidney disease, stage IV (severe) (CMS/HCC) (HCC) VOLUME AND PERIOD, URINE, 24 HOUR Routine 11/19/2024 9:00 AM BANKING SERVICES OFFICER Chronic kidney disease, stage IV (severe) (CMS/HCC) (HCC) PROTEIN ELECTROPHORESIS, URINE, 24 HOUR RESULT Routine 11/19/2024 9:00 AM BANKING SERVICES OFFICER Chronic kidney disease, stage IV (severe) (CMS/HCC) (HCC) UREA NITROGEN, URINE, 24 HOUR Routine 11/19/2024 9:00 AM BANKING SERVICES OFFICER Chronic kidney disease, stage IV (severe) (CMS/HCC) (HCC) PROTEIN ELECTROPHORESIS, URINE, 24 HOUR WITH IMMUNOFIXATION Routine 11/19/2024 9:00 AM BANKING SERVICES OFFICER Chronic kidney disease, stage IV (severe) (CMS/HCC) (HCC) CLINICAL PATHOLOGY REPORT Routine 11/12/2024 1:55 PM BANKING SERVICES OFFICER EGFR Routine 11/12/2024 1:55 PM BANKING SERVICES OFFICER Chronic kidney disease, stage IV (severe) (CMS/HCC) (HCC) URINALYSIS, MICROSCOPIC ONLY Routine 11/12/2024 1:55 PM BANKING SERVICES OFFICER Chronic kidney disease, stage IV (severe) (CMS/HCC) (HCC) C3 COMPLEMENT Routine 11/12/2024 1:55 PM BANKING SERVICES OFFICER Chronic kidney disease, stage IV (severe) (CMS/HCC) (HCC) C4 COMPLEMENT Routine 11/12/2024 1:55 PM BANKING SERVICES OFFICER Chronic kidney disease, stage IV (severe) (CMS/HCC) (HCC) COMPLEMENT, TOTAL Routine 11/12/2024 1:5 5 PM BANKING SERVICES OFFICER Chronic kidney disease, stage IV (severe) (CMS/HCC) (HCC) CBC WITHOUT DIFFERENTIAL Routine 11/12/2024 1:55 PM BANKING SERVICES OFFICER Chronic kidney disease, stage IV (severe) (CMS/HCC) (HCC) CREATINE KINASE (CK), TOTAL Routine 11/12/2024 1:55 PM BANKING SERVICES OFFICER Chronic kidney disease, stage IV (severe) (CMS/HCC) (HCC) IMMUNOTYPING Routine 11/12/2024 1:55 PM BANKING SERVICES OFFICER Chronic kidney disease, stage IV (severe) (CMS/HCC) (HCC) IMMUNOGLOBULIN FREE LIGHT CHAINS Routine 11/12/2024 1:55 PM BANKING SERVICES OFFICER Chronic kidney disease, stage IV (severe) (CMS/HCC) (HCC) ERYTHROCYTE SEDIMENTATION RATE Routine 11/12/2024 1:55 PM BANKING SERVICES OFFICER Chronic kidney disease, stage IV (severe) (CMS/HCC) (HCC) RENAL FUNCTION PANEL Routine 11/12/2024 1:55 PM BANKING SERVICES OFFICER Chronic kidney disease, stage IV (severe) (CMS/HCC) (HCC) RAMU QUALITATIVE WITH REFLEX TO RAMU QUANTITATIVE Routine 11/12/2024 1:55 PM BANKING SERVICES OFFICER Chronic kidney disease, stage IV (severe) (CMS/HCC) (HCC) PTH Routine 11/12/2024 1:55 PM BANKING SERVICES OFFICER Chronic kidney disease, stage IV (severe) (CMS/HCC) (HCC) PROTEIN / CREATININE RATIO, URINE, RANDOM Routine 11/12/2024 1:55 PM BANKING SERVICES OFFICER Chronic kidney disease, stage IV (severe) (CMS/HCC) (HCC) URINALYSIS AND REFLEX TO MICROSCOPIC AND CULTURE Routine 11/12/2024 1:55 PM BANKING SERVICES OFFICER Chronic kidney disease, stage IV (severe) (CMS/HCC) [...] * Clinical pathology report (11/19/2024 9:00 AM BANKING SERVICES OFFICER) Miscellaneous 11/19/2024 9:0 0 AM BANKING SERVICES OFFICER 11/20/2024 8:35 AM BANKING SERVICES OFFICER Narrative 11/20/2024 4:35 PM BANKING SERVICES OFFICER [facility] results best viewed via link to PDF [facility] Department of Pathology [address] [place] [id number] Final Report Note to Patients: This [...] the details. Patient Name: LIDIA MAHER Address: [address] [place] [address] Gender: F : 1960 (Age: 64) Service: Location: Hospital #: [id number] Patient Type: SPECIMEN Taken: 11/19/2024 Received: 11/20/2024 [...] determined by the Surgical Pathology Department at [facility] as part of an ongoing quality control chemist program and in compliance with federally mandated [...] characteristics determined by the Surgical Pathology Department [facility]. It has not been cleared or approved by the U. S. Food and Drug Administration. REPORT IMAGES AND SCANNED DOCUMENTS, IF INCLUDED, ONLY VIEWABLE IN PDF VERSION OF REPORTe o Shmuel Stewart MD LAB PATHOLOGY ORDERABLES Fin al Result * Volume and period, urine, 24 hour (11/19/2024 9:00 AM BANKING SERVICES OFFICER) Volume, ur 1,500 mL Period, Urine Collection 1,500 min [facility] Urine 11/19/2024 9:00 AM BANKING SERVICES OFFICER 11/19/2024 11:45 PM BANKING SERVICES OFFICER Narrative [facility] - 11/20/2024 12:15 AM BANKING SERVICES OFFICER Fax results to Dr Shmuel Stewart [phone] Shmuel Stewart MD LAB URINE ORDERABLES Final R esult Performing Organization Address [facility] de Phone Number NEW [address] Frida [facility] [place] [address] * Urea nitrogen, urine, 24 hour (11/19/2024 9:00 AM BANKING SERVICES OFFICER) Urea nitrogen, 24 hr ur 7 5 - 20 g/24H Urine 11/19/2024 9:00 AM BANKING SERVICES OFFICER 11/19/2024 11:45 PM BANKING SERVICES OFFICER Narrative NEW - 11/20/2024 12:25 AM BANKING SERVICES OFFICER Fax results to Dr Shmuel Stewart [phone] Shmuel Stewart MD LAB URINE ORDERABLES Final [facility] Performing Organization Address [facility] de Phone Number NEW [address] Fr[address] [facility] [place] [address] * (ABNORMAL) Protein electrophoresis, urine, 24 hour (11/19/2024 9:00 AM BANKING SERVICES OFFICER) Protein, ur, quant 175.7 mg/dL Comment:No reference [...] hr, ur 2,530(H) 1 - 150 mg/24H [facility] Urine 11/19/2024 9:0 0 AM BANKING SERVICES OFFICER 11/19/2024 11:45 PM BANKING SERVICES OFFICER Narrative CERNER - 11/21/2024 12:21 PM BANKING SERVICES OFFICER Fax results to Dr Shmuel Stewart [phone] Shmuel Stewart MD LAB URINE ORDERABLES Final R esult Performing Organization Address City/[facility] Co de Phone Number KIMBERLYDAVID [address] [address] Christina Department [employer] [place], [place] [phone] * Immunofixation, urine (11/19/2024 9:00 AM BANKING SERVICES OFFICER) Immunofixation , Ur See Cl Path Rpt Urine 11/19/2024 9:00 AM BANKING SERVICES OFFICER 11/19/2024 11:45 PM BANKING SERVICES OFFICER Shmuel Stewart MD LAB URINE ORDERABLES Final R esult Performing Organization Address [facility] de [place] Number NEW [address] Frida Christina Department [place] [address] * Immunotyping, serum (11/12/2024 1:55 PM BANKING SERVICES OFFICER) Immunofixation See Cl Path Rpt Blood 11/12/2024 1:55 PM BANKING SERVICES OFFICER 11/12/2024 9:14 PM BANKING SERVICES OFFICER Narrative [facility] - 11/13/2024 12:12 PM BANKING SERVICES OFFICER Fax results to Dr Arielle Stewart [phone] Shmuel Stewart MD LAB BLOOD ORDERABLES Final R esult Performing Organization Address [facility] Co de [place] Number NEW [address] Frida Christina Department [place] [address] * (ABNORMAL) RAMU ab ql w/rflx to RAMU qn (11/12/2024 1:55 PM BANKING SERVICES OFFICER) RAMU Positive 1:320 Comment: Interpretive Data Normal [...] last revised on 2020. Testing performed by: [facility], [address] [place]., [address] RAMU, quant 1:320 titer [place] Comment:Testing performed by : [facility], [address] [place]., [address] RAMU, interp Homogeneous (A) [place] GUI[place] Comment:Testing performed by : [facility], [address] [place] [address]., [address] Blood 11/12/2024 1:55 PM BANKING SERVICES OFFICER 11/13/2024 10:13 AM BANKING SERVICES OFFICER Narrative NEW - 11/14/2024 1:07 PM BANKING SERVICES OFFICER Fax results to Dr Arielle Stewart [phone] Shmuel Stewart MD LAB BLOOD ORDERABLES Final R esult Performing Organization Address City/State/[facility] Co de Phone Number NEW [address] [place] [address] * Clinical pathology report (11/12/2024 1:55 PM BANKING SERVICES OFFICER) Miscellaneous 11/12/2024 1:5 5 PM BANKING SERVICES OFFICER 11/13/2024 8:31 AM BANKING SERVICES OFFICER Narrative 11/16/2024 8:50 AM BANKING SERVICES OFFICER EPIC results best viewed via link to PDF [facility] Department of Pathology [address] [place] [id number] Final Report Note to Patients: This [...] the details. Patient Name: LIDIA MAHER Address: [address] [place] [address] Gender: F : 1960 (Age: 64) Service: Location: N : [id number] [facility] #: [id number] Patient Type: SPECIMEN Taken: 11/12/2024 Received: 11/13/2024 [...] determined by the Surgical Pathology Department at [facility] as part of an ongoing quality control chemist program and in compliance with federally mandated [...] Result * (ABNORMAL) eGFR (11/12/2024 1:55 PM BANKING SERVICES OFFICER) eGFR 27(L) >=60 mL/min/1. 73 m2 Comment: [...] last reviewed 2021. Blood 11/12/2024 1:55 PM BANKING SERVICES OFFICER 11/12/2024 11:28 PM BANKING SERVICES OFFICER Shmuel Stewart MD LAB BLOOD ORDERABLES Final R esult [place] [phone] [address] Department [place] [address] * C4 complement (11/12/2024 1:55 PM BANKING SERVICES OFFICER) Complement C4 31 10 - 40 mg/dL Blood 11/12/2024 1:55 PM BANKING SERVICES OFFICER 11/12/2024 11:28 PM BANKING SERVICES OFFICER Narrative NEW Becerra 11/12/2024 11:36 PM BANKING SERVICES OFFICER Fax results to Dr Arielle Stewart [phone] Shmuel Stewart MD LAB BLOOD ORDERABLES Final R [facility] Performing Organization Address [facility] de Phone Number [facility] [address] [place] [address] * (ABNORMAL) Immunoglobulin free light chains (11/12/2024 1:55 PM BANKING SERVICES OFFICER) Pathologist [facility] [place]/Lambda ratio 1.50 0.26 - 1.65 [place] free light chain 6.61(H) 0.33 - 1.94 mg/dL [facility] Comment: Interpretive Data The Nupur Ig [place] FLC assay procedure was used. Results from different manufacturers or methods may not be comparable. Serial testing should be performed using the same method. Lambda free light chain 4.28(H) 0.57 - 2.63 mg/dL [facility] Comment: Interpretive Data The Nupur Ig Lambda FLC assay procedure was used. Results from different manufacturers or methods may not be comparable. Serial testing should be performed using the same method. Blood 11/12/2024 1:55 PM BANKING SERVICES OFFICER 11/12/2024 9:14 PM BANKING SERVICES OFFICER Narrative [facility] - 11/13/2024 7:18 AM BANKING SERVICES OFFICER Fax results to Dr Arielle Stewart [phone] Shmuel Stewart MD LAB BLOOD ORDERABLES Final [facility] Performing Organization Address [facility] de Phone Number [facility] [address] [place] [address] * (ABNORMAL) Urinalysis reflex to microscopic and culture Urine, clean voided (11/12/2024 1:55 PM BANKING SERVICES OFFICER) Color, ur Yellow Yellow Clarity, ur Turbid(A) Clear [facility] Specific gravity, ur 1.011 1.003 - 1.030 [facility] pH, urine 6.0 [facility] Comment: Interpretive Data U rine pH is affected by diet, medications, systemic acid-base disturbances, and renal tubular function. pH may affect urinary stone formation. For example, urine pH below 6.0 may help reduce the tendency for calcium phosphate stones and pH greater than 6.0 may reduce the tendency for uric acid stone formation. Source: [facility] Current Interpretive Data was last revised on [...] Reflex to microscopic UA will be performed. [facility] Urine, clean voided 11/12/2024 1:55 PM BANKING SERVICES OFFICER 11/12/2024 9:14 PM BANKING SERVICES OFFICER Narrative [facility] - 11/12/2024 9:32 PM BANKING SERVICES OFFICER Fax results to Dr Arielle Stewatr [phone] Shmuel Stewart MD LAB MICROBIOLOGY - GENERAL O RDERABLES Final Result Performing Organization Address [facility] de Phone Number [facility] [address] [address] Department [place] [address] * (ABNORMAL) Protein / creatinine ratio, urine, random (11/12/2024 1:55 PM BANKING SERVICES OFFICER) Protein, ur, quant 197.6 mg/dL Comment: Interpretive Data No reference range established. Current interpretive data was last revised 2019. Creatinine Ur 44.9 mg/dL [facility] Comment: Interpretive Data No reference range established. Current interpretive data was last revised 2019. Protein/creatinin e ratio 4,400.9(H ) 0.0 - 180.0 mg/g CR [facility] Urine 11/12/2024 1:55 PM BANKING SERVICES OFFICER 11/12/2024 9:14 PM BANKING SERVICES OFFICER Narrative [facility] - 11/12/2024 10:10 PM BANKING SERVICES OFFICER Fax results to Dr Arielle Stewart [phone] Shmuel Stewart MD LAB URINE ORDERABLES Final R esult Performing Organization Address [facility] de Phone Number [facility] [address] [address] Department [place] [address] * (ABNORMAL) Urinalysis, microscopic only (11/12/2024 1:55 PM BANKING SERVICES OFFICER) Pathologist [facility] WBC, ur 0-5 0 - 5 /HPF RBC, ur 0-2 0 - 2 /HPF [facility] Epithelial cells, squamous, ur 1-5 0 - 5 /HPF [facility] Mucous, ur Present(A) [facility] Culture Reflex Comment Reflex conditions for urine culture (WBC >10) not met. [facility] Urine, clean voided 11/12/2024 1:55 PM BANKING SERVICES OFFICER 11/12/2024 9:14 PM BANKING SERVICES OFFICER Shmuel Stewart MD LAB URINE ORDERABLES Final R [facility] Performing Organization Address [facility] de Phone Number [facility] GUILLEN [address] [address] Department [place] [address] * Erythrocyte sedimentation rate (11/12/2024 1:55 PM BANKING SERVICES OFFICER) [facility] Erythrocyte sedimentation rate 15 1 - 30 mm/hr Blood (Blood, Venous) 11/12/2024 1:55 PM BANKING SERVICES OFFICER 11/12/2024 9:14 PM BANKING SERVICES OFFICER Narrative [facility] - 11/12/2024 10:00 PM BANKING SERVICES OFFICER Fax results to Dr Arielle Stewart [phone] Shmuel Stewart MD LAB BLOOD ORDERABLES Final R [facility] Performing Organization Address [facility] Co de Phone Number [facility] [address] [address] Department [place] [address] * (ABNORMAL) CBC without differential (11/12/2024 1:55 PM BANKING SERVICES OFFICER) [facility] WBC 8.2 3.8 - 9.9 K/cumm Hgb 12.3 11.9 - 15.5 g/dL [facility] Hct 39.7 35.6 - 45.5 % [facility] Plt 356 150 - 400 K/cumm CERNER [...] CH Blood (Blood, Venous) 11/12/2024 1:55 PM BANKING SERVICES OFFICER 11/12/2024 9:14 PM BANKING SERVICES OFFICER Narrative [facility] - 11/12/2024 9:42 PM BANKING SERVICES OFFICER Fax results to Dr Arielle Stewart [phone] Shmuel Stewart MD LAB BLOOD ORDERABLES Final R esult Performing Organization Address City/[facility] Co de Phone Number [place] [address] [address] [employer] [place] [address] * Complement, total (11/12/2024 1:55 PM BANKING SERVICES OFFICER) Complement hemolytic 64 30 - 75 units/mL Nielsen ref Lab Comment: Test Performed by: [place] [address] Information Assurance Officer: Ilir Prado Ph.D.; CLIA# [id number] Blood (Blood, Venous) 11/12/2024 1:55 PM BANKING SERVICES OFFICER 11/12/2024 9:14 PM BANKING SERVICES OFFICER Narrative [facility] - 11/17/2024 1:19 PM BANKING SERVICES OFFICER Fax results to Dr Arielle Stewart [phone] Shmuel Stewart MD LAB BLOOD ORDERABLES Final R esult Performing Organization Address City/[facility] Co de Phone Number [place] [address] [address] Christina Department [place] [address] [facility] ref Lab * C3 complement (11/12/2024 1:55 PM BANKING SERVICES OFFICER) Pathologist [facility] Complement C3 124 90 - 180 mg/dL Blood (Blood, Venous) 11/12/2024 1:55 PM BANKING SERVICES OFFICER 11/12/2024 11:28 PM BANKING SERVICES OFFICER Narrative [facility] - 11/12/2024 11:36 PM BANKING SERVICES OFFICER Fax results to Dr Arielle Stewart [phone] Shmuel Stewart MD LAB BLOOD ORDERABLES Final R esult Performing Organization Address [facility] Co de Phone Number KIMBERLYDAVID GUILLEN [address] [address] Christina [facility] [employer] [place], [place] [phone] * (ABNORMAL) PTH (11/12/2024 1:55 PM BANKING SERVICES OFFICER) [facility] PTH 81(H) 15 - 65 pg/mL Blood (Blood, Venous) 11/12/2024 1:55 PM BANKING SERVICES OFFICER 11/12/2024 11:28 PM BANKING SERVICES OFFICER Narrative NEW - 11/12/2024 11:29 PM BANKING SERVICES OFFICER Fax results to Dr Arielle Stewart [phone] Shmuel Stewart MD LAB BLOOD ORDERABLES Final R [facility] Performing Organization Address [facility] Co de Phone Number KIMBERLYDAVID GUILLEN [address] [address] Christina Department [employer] [place], [place] [phone] * Creatine kinase (CK), total (11/12/2024 1:55 PM BANKING SERVICES OFFICER) [facility] CK 77 30 - 200 Units/L Blood (Blood, Venous) 11/12/2024 1:55 PM BANKING SERVICES OFFICER 11/12/2024 11:28 PM BANKING SERVICES OFFICER Narrative KIMBERLYNER - 11/12/2024 11:43 PM BANKING SERVICES OFFICER Fax results to Dr Arielle Stewart [phone] Shmuel Stewart MD LAB BLOOD ORDERABLES Final R esult Performing Organization Address City/[facility] Co de Phone Number KIMBERLYDAVID GUILLEN [address] [place] [address] * (ABNORMAL) Renal function panel (11/12/2024 1:55 PM BANKING SERVICES OFFICER) Sodium 138 135 - 145 mmol/L Potassium, [...] CH Blood (Blood, Venous) 11/12/2024 1:55 PM BANKING SERVICES OFFICER 11/12/2024 11:28 PM BANKING SERVICES OFFICER Narrative CERNER CH - 11/12/2024 11:29 PM BANKING SERVICES OFFICER Fax results to Dr Arielle Stewart [phone] Shmuel Stewart MD LAB BLOOD ORDERABLES Final R esult [place] [address] [place] [address] * SCREENING MAMMOGRAM BILATERAL W BRENDA (02/16/2022 [...] Stool DNA - Cologuard Negative Not Applicable SNAPP' (CLIA #:[id number]) Comment: A negative result indicates a low [...] (Radha Perez al, N Engl J Med 2014;370(14):5453-4613) The normal value (reference range) for this assay is negative. COLOGUARD RE-SCREENING RECOMMENDATION: Periodic routine colorectal cancer screening is an important part of preventive healthcare for asymptomatic persons at average risk for colorectal cancer. Following a negative Cologuard result, the [place] [employer] and U.S. Multi-Society Task Force screening guidelines recommend a Cologuard re-screening interval of 3 years. References: [place] [employer] (ACS). Colorectal cancer prevention and early detection. [place], [place]: [place] [employer]; [updated 2015Feb 12]. https://www.cancer.org/cancer/dyrcz-epqyto-jrnbis/riacdrxrq-dmkdpejgh-vohhlna/ac s-rec ommendations.html. Accessed June 21, 2018; Mohinder DK, Renetta LOMAX, Keshawn GORE, Colorectal Cancer Screening: Recommendations for Physicians and Patients from the U.S. Multi-Society Task Force on Colorectal Cancer Screening, Am J Gastroenterology 2017; 112:4920-2320. TEST TYPE: Composite algorithmic analysis of stool [...] interval of every 3 years by the [place] [employer] and U.S. Multi-Society Task Force. [...] can be accessed at the following location: www.Za[facility]entila/results. Additional description of the Cologuard test process, warnings and precautions can be found at www.cologuardtest.com. Rx only. Stool 03/09/2021 1:30 PM CDT 03/10/2021 4:58 PM CDT Jamaal Solorio MD LAB BODY FLUIDS AND STOOL S ORDERABLES Final Result Performing Organization Address [facility] Co de Phone Number [facility] (CLIA #:[id number]) [place] [address] [place] [address] * Hepatitis C antibody (02/04/2021 3:49 PM [...] L ORDERABLES Final Result Performing Organization Address [facility] [place] Number [place] [address] [place] [address] from Last 3 Months or Most Recently Relevant to Health Maintenance Insurance [facility] [employer] Care Teams Emery Grinder Relationship Specialty Start Date End Date Jama[place] [address] PCP - General Family Medicine 01/11/21
--- OUTSIDE RECORDS SUMMARY | 2024-12-15 14:21 | XMS_ITS | Referral Summary ---
Author Organization [facility] [address] [facility] Address [address] eduar [facility] [address] Care Team Providers Care Curtain Inspector Name Role Phone Jamaal Solorio MD Primary Care Provider [phone] Encounters Date Type Department Care Team Description 11/19/2024 3:24 PM DIRECTOR CAREER SERVICES - 11/19/2024 11:59 PM DIRECTOR CAREER SERVICES [place] [address] Chronic kidney disease, stage IV (severe) (CMS/HCC) (HCC) Discharge Disposition: Discharge to home or self care 11/19/2024 3:15 PM DIRECTOR CAREER SERVICES Lab [facility] Outpatient Lab at [address] [address] Chronic kidney disease, stage IV (severe) (CMS/HCC) (HCC) (Primary Dx) 11/12/2024 1:55 PM DIRECTOR CAREER SERVICES - 11/12/2024 11:59 PM DIRECTOR CAREER SERVICES Hospital Encounter [address] [address] Chronic kidney disease, stage IV (severe) (CMS/HCC) (HCC) Discharge Disposition: Discharge to home or self care 11/12/2024 1:45 PM DIRECTOR CAREER SERVICES Lab [facility] Outpatient Lab at [address] [address] Chronic kidney disease, stage IV (severe) (CMS/HCC) (HCC) (Primary Dx); Hypertension, essential 10/01/2024 2:00 PM DIRECTOR CAREER SERVICES Therapy [facility] Warm Hand Off Program [address] [place] [address] Addie Fung, DIRECTOR OF RESEARCH BHAVANI (generalized anxiety disorder) (Primary Dx); MDD (major depressive disorder), recurrent episode, moderate ([facility]); Grief from Last 3 Months Allergies Active [...] 09/10/2024 Assessment & Plan (09/10/2024 1:17 PM DIRECTOR CAREER SERVICES): Endorsing dysuria, low concern for pyelo at this time Will order UA and follow up with results Dyslipidemia 04/03/2024 Assessment & Plan (04/03/2024 1:20 PM CDT): Borderline high LDL and total cholesterol; encourage low-fat high-fiber diet Continue to monitor CKD (chronic kidney disease) stage 4, GFR 15-29 ml/min ([facility]) 04/03/2024 Assessment & Plan (09/10/2024 1:16 PM DIRECTOR CAREER SERVICES): No concern sin this regard, follow with paste up worker Will continue to monitor peripherally Assessment & Plan (06/10/2024 2:16 PM CDT): For Nephrology; most recent EGFR was below 30, stable Chumuckla and lambda light chains are elevated with normal ratio; positive RAMU Will follow recommendations per Nephrology Assessment & Plan (04/03/2024 1:20 PM CDT): Patient continues to have labile EGFR, with symptoms going up and down Will refer to nephrology for evaluation continue surveillance Attention deficit hyperactiv ity disorder (ADHD), predominantly hyperactive type 02/21/2024 Assessment & Plan (09/10/2024 4:02 PM DIRECTOR CAREER SERVICES): Pt stable in this regard and is [...] 11/10/2022 Assessment & Plan (09/10/2024 1:43 PM DIRECTOR CAREER SERVICES): Stable, is following with counselor and is [...] able Assessment & Plan (11/10/2022 1:10 PM DIRECTOR CAREER SERVICES): Reviewed pharmacologic treatment options for management of [...] 03/02/2021 Assessment & Plan (09/10/2024 1:12 PM DIRECTOR CAREER SERVICES): Mildly elevated at time of presentation, suspect [...] 03/02/2021 Assessment & Plan (09/10/2024 1:39 PM DIRECTOR CAREER SERVICES): Mood much improved Continue Wellbutrin XL Assessment & Plan (06/10/2024 2:15 PM CDT): Stable, patient continues to have significant grief related to loss of ; patient has begun to engage in outside activities, including going to synagogue; starting to go to stores at time; continues to have days of significant grief Recommend continued engagement with social activities, including synagogue as well as groups such as group share Assessment & Plan (04/03/2024 1:19 PM CDT): Not well controlled, acutely worsened; patient's recently Continue bupropion 450 mg daily; patient to follow up with individual counseling Patient given resources for grief Assessment & Plan (11/10/2022 1:09 PM DIRECTOR CAREER SERVICES): No changes, buspirone added to current regimen. [...] Tobacco: Never Tobacco Cessation:Counseling Given: Not Answered [facility] [employer] Answer Date Recorded In the past 12 months has e [employer], oil, or water [employer] threatened to shut off services in your [...] often do you attend chur ch or mandaeism services? More than 4 times per year 06/24/2024 Do you belong to any clubs o r organizations such as synagogue groups, unions, fraternal or athletic groups, or [...] should administer the PHQ-9) 1 06/24/2024 [facility] - Occupational Stress Questionnaire Answer Date [...] any time in the past 12 m [facility], were you homeless or living in a prison (including now)? No 06/24/2024 Comments No Sex and Gender Information Value Date Recorded Sex Assigned at Not on file Legal Sex Female 8:39 AM CDT Gender Identity Not on file Sexual Orientation Not on file Last Filed Vital Signs Vital Sign Reading Time Taken Comments Blood Pressure 146/90 09/10/2024 10:37 AM DIRECTOR CAREER SERVICES Pulse 72 09/10/2024 10:37 AM DIRECTOR CAREER SERVICES Temperature 36.6 C (97.8 F) 09/10/2024 10:37 AM DIRECTOR CAREER SERVICES Respiratory Rate 18 09/10/2024 10:37 AM DIRECTOR CAREER SERVICES Oxygen Saturation 99% 09/10/2024 10:37 AM DIRECTOR CAREER SERVICES Inhaled Oxygen Concentration - - Weight 68.5 kg (151 lb) 09/10/2024 10:37 AM DIRECTOR CAREER SERVICES Height 165.1 cm (5' 5 ) 09/10/2024 10:37 AM DIRECTOR CAREER SERVICES Body Mass Index 25.13 09/10/2024 10:37 AM DIRECTOR CAREER SERVICES Plan of Treatment Not on file Procedures Procedure Name Priority Date/Time Associated Diagnosis Comments CLINICAL PATHOLOGY REPORT Routine 11/19/2024 9:00 AM DIRECTOR CAREER SERVICES IMMUNOFIXATION, URINE Routine 11/19/2024 9:00 AM DIRECTOR CAREER SERVICES Chronic kidney disease, stage IV (severe) (CMS/HCC) (HCC) UREA NITROGEN, URINE, 24 HOUR RESULT Routine 11/19/2024 9:00 AM DIRECTOR CAREER SERVICES Chronic kidney disease, stage IV (severe) (CMS/HCC) (HCC) VOLUME AND PERIOD, URINE, 24 HOUR Routine 11/19/2024 9:00 AM DIRECTOR CAREER SERVICES Chronic kidney disease, stage IV (severe) (CMS/HCC) (HCC) PROTEIN ELECTROPHORESIS, URINE, 24 HOUR RESULT Routine 11/19/2024 9:00 AM DIRECTOR CAREER SERVICES Chronic kidney disease, stage IV (severe) (CMS/HCC) (HCC) UREA NITROGEN, URINE, 24 HOUR Routine 11/19/2024 9:00 AM DIRECTOR CAREER SERVICES Chronic kidney disease, stage IV (severe) (CMS/HCC) (HCC) PROTEIN ELECTROPHORESIS, URINE, 24 HOUR WITH IMMUNOFIXATION Routine 11/19/2024 9:00 AM DIRECTOR CAREER SERVICES Chronic kidney disease, stage IV (severe) (CMS/HCC) (HCC) CLINICAL PATHOLOGY REPORT Routine 11/12/2024 1:55 PM DIRECTOR CAREER SERVICES EGFR Routine 11/12/2024 1:55 PM DIRECTOR CAREER SERVICES Chronic kidney disease, stage IV (severe) (CMS/HCC) (HCC) URINALYSIS, MICROSCOPIC ONLY Routine 11/12/2024 1:55 PM DIRECTOR CAREER SERVICES Chronic kidney disease, stage IV (severe) (CMS/HCC) (HCC) C3 COMPLEMENT Routine 11/12/2024 1:55 PM DIRECTOR CAREER SERVICES Chronic kidney disease, stage IV (severe) (CMS/HCC) (HCC) C4 COMPLEMENT Routine 11/12/2024 1:55 PM DIRECTOR CAREER SERVICES Chronic kidney disease, stage IV (severe) (CMS/HCC) (HCC) COMPLEMENT, TOTAL Routine 11/12/2024 1:5 5 PM DIRECTOR CAREER SERVICES Chronic kidney disease, stage IV (severe) (CMS/HCC) (HCC) CBC WITHOUT DIFFERENTIAL Routine 11/12/2024 1:55 PM DIRECTOR CAREER SERVICES Chronic kidney disease, stage IV (severe) (CMS/HCC) (HCC) CREATINE KINASE (CK), TOTAL Routine 11/12/2024 1:55 PM DIRECTOR CAREER SERVICES Chronic kidney disease, stage IV (severe) (CMS/HCC) (HCC) IMMUNOTYPING Routine 11/12/2024 1:55 PM DIRECTOR CAREER SERVICES Chronic kidney disease, stage IV (severe) (CMS/HCC) (HCC) IMMUNOGLOBULIN FREE LIGHT CHAINS Routine 11/12/2024 1:55 PM DIRECTOR CAREER SERVICES Chronic kidney disease, stage IV (severe) (CMS/HCC) (HCC) ERYTHROCYTE SEDIMENTATION RATE Routine 11/12/2024 1:55 PM DIRECTOR CAREER SERVICES Chronic kidney disease, stage IV (severe) (CMS/HCC) (HCC) RENAL FUNCTION PANEL Routine 11/12/2024 1:55 PM DIRECTOR CAREER SERVICES Chronic kidney disease, stage IV (severe) (CMS/HCC) (HCC) RAMU QUALITATIVE WITH REFLEX TO RAMU QUANTITATIVE Routine 11/12/2024 1:55 PM DIRECTOR CAREER SERVICES Chronic kidney disease, stage IV (severe) (CMS/HCC) (HCC) PTH Routine 11/12/2024 1:55 PM DIRECTOR CAREER SERVICES Chronic kidney disease, stage IV (severe) (CMS/HCC) (HCC) PROTEIN / CREATININE RATIO, URINE, RANDOM Routine 11/12/2024 1:55 PM DIRECTOR CAREER SERVICES Chronic kidney disease, stage IV (severe) (CMS/HCC) (HCC) URINALYSIS AND REFLEX TO MICROSCOPIC AND CULTURE Routine 11/12/2024 1:55 PM DIRECTOR CAREER SERVICES Chronic kidney disease, stage IV (severe) (CMS/HCC) [...] * Clinical pathology report (11/19/2024 9:00 AM DIRECTOR CAREER SERVICES) Miscellaneous 11/19/2024 9:0 0 AM DIRECTOR CAREER SERVICES 11/20/2024 8:35 AM DIRECTOR CAREER SERVICES Narrative 11/20/2024 4:35 PM DIRECTOR CAREER SERVICES EPIC results best viewed via link to PDF [facility] Department of Pathology [address] [place] [id number] Final Report Note to Patients: This [...] the details. Patient Name: LIDIA MAHER Address: [address] [place] [address] Gender: F : 1960 (Age: 64) Service: Location: N : [id number] [facility] #: [id number] Patient Type: SPECIMEN Taken: 11/19/2024 Received: 11/20/2024 [...] determined by the Surgical Pathology Department at [facility] as part of an ongoing quality assurance practice manager program and in compliance with federally mandated [...] characteristics determined by the Surgical Pathology Department [facility]. It has not been cleared or approved by the U. S. Food and Drug Administration. REPORT IMAGES AND SCANNED DOCUMENTS, IF INCLUDED, ONLY VIEWABLE IN PDF VERSION OF REPORTe o Shmuel Stewart MD LAB PATHOLOGY ORDERABLES Fin al Result * Volume and period, urine, 24 hour (11/19/2024 9:00 AM DIRECTOR CAREER SERVICES) Volume, ur 1,500 mL Period, Urine Collection 1,500 min [facility]rine 11/19/2024 9:00 AM DIRECTOR CAREER SERVICES 11/19/2024 11:45 PM DIRECTOR CAREER SERVICES Narrative [facility] 11/20/2024 12:15 AM DIRECTOR CAREER SERVICES Fax results to Dr Shmuel Stewart [phone] Shmuel Stewart MD LAB URINE ORDERABLES Final R esult Performing Organization Address [facility] Co de Phone Number [place] [address] [address] [place] [employer] [place] [address] * Urea nitrogen, urine, 24 hour (11/19/2024 9:00 AM DIRECTOR CAREER SERVICES) Urea nitrogen, 24 hr ur 7 5 - 20 g/24H Urine 11/19/2024 9:00 AM DIRECTOR CAREER SERVICES 11/19/2024 11:45 PM DIRECTOR CAREER SERVICES [facility] - 11/20/2024 12:25 AM DIRECTOR CAREER SERVICES Fax results to Dr Shmuel Stewart [phone] Shmuel Stewart MD LAB URINE ORDERABLES Final R [facility] Performing Organization Address [facility] [place] Number [place] [address] [address] [facility] [place] [employer] [place] [address] * (ABNORMAL) Protein electrophoresis, urine, 24 hour (11/19/2024 9:00 AM DIRECTOR CAREER SERVICES) Protein, ur, quant 175.7 mg/dL Comment:No reference [...] stablished. UPEP interp See Cl Path Rpt [facility] Protein, 24 hr, ur 2,530(H) 1 - 150 mg/24H NEW Urine 11/19/2024 9:00 AM DIRECTOR CAREER SERVICES 11/19/2024 11:45 PM DIRECTOR CAREER SERVICES Narrative NEW - 11/21/2024 12:21 PM DIRECTOR CAREER SERVICES Fax results to Dr Shmuel Stewart [phone] Shmuel Stewart MD LAB URINE ORDERABLES Final R esult Performing Organization Address [facility] de [place] Number [place] [address] [address] Department [employer] [place] [address] * Immunofixation, urine (11/19/2024 9:00 AM DIRECTOR CAREER SERVICES) Immunofixation , Ur See Cl Path Rpt Urine 11/19/2024 9:00 AM DIRECTOR CAREER SERVICES 11/19/2024 11:45 PM DIRECTOR CAREER SERVICES Shmuel Stewart MD LAB URINE ORDERABLES Final R esult Performing Organization Address [facility] de Phone Number [facility] [address] [address] [facility] [employer] [place] [address] * Immunotyping, serum (11/12/2024 1:55 PM DIRECTOR CAREER SERVICES) Immunofixation See Cl Path Rpt Blood 11/12/2024 1:55 PM DIRECTOR CAREER SERVICES 11/12/2024 9:14 PM DIRECTOR CAREER SERVICES Narrative NEW - 11/13/2024 12:12 PM DIRECTOR CAREER SERVICES Fax results to Dr Arielle Stewart [phone] Shmuel Stewart MD LAB BLOOD ORDERABLES Final R esult Performing Organization Address City/[facility]/ZIP Co de Phone Number KIMBERLYDAVID GUILL[place] [address] [place] [employer] [place] [address] * (ABNORMAL) RAMU ab ql w/rflx to RAMU qn (11/12/2024 1:55 PM DIRECTOR CAREER SERVICES) RAMU Positive 1:320 Comment: Interpretive Data Normal [...] last revised on 2020. Testing performed by: [facility], [address] [place] [address]., [id number] RMAU, quant 1:320 titer NEW Comment:Testing performed by : [facility], [address] [place] [address]., [id number] RAMU, interp Homogeneous (A) NEW Comment:Testing performed by : [facility], [address] [place] [address]., [id number] Blood 11/12/2024 1:55 PM DIRECTOR CAREER SERVICES 11/13/2024 10:13 AM DIRECTOR CAREER SERVICES Narrative NEW - 11/14/2024 1:07 PM DIRECTOR CAREER SERVICES Fax results to Dr Arielle Stewart [phone] Shmuel Stewart MD LAB BLOOD ORDERABLES Final R esult [facility] [place] [address] [place] [employer] [address] * Clinical pathology report (11/12/2024 1:55 PM DIRECTOR CAREER SERVICES) Miscellaneous 11/12/2024 1:5 5 PM DIRECTOR CAREER SERVICES 11/13/2024 8:31 AM DIRECTOR CAREER SERVICES Narrative 11/16/2024 8:50 AM DIRECTOR CAREER SERVICES [facility] results best viewed via link to PDF [facility] Department of Pathology [address] [place] [id number] Final Report Note to Patients: This [...] the details. Patient Name: LIDIA MAHER Address: [address] [place] [address] Gender: F : 1960 (Age: 64) Service: Location: N : [id number] Hospital #: [id number] Patient Type: SPECIMEN Taken: 11/12/2024 Received: 11/13/2024 Accessioned: 11/13/2024 Physician(s): Shmuel Stewart M.D. Specimen(s) Received A: Blood (serum) Serum Protein Immunofixation/ImmunotypingReported:11/16/2024 Interpretation: Serum Protein Immunofixation: Normal serum immunofixation study. Comment: Serum Protein Immunofixation: Examination of G, A and M heavy chains as well as kappa and lambda light chains reveals no evidence of abnormal peaks. See [facility] and/or separate report for protein fraction table. Iggy Bernal MD PhDReport Electronically Reviewed and Signed Out By Iggy Bernal MD PhD 11/16/2024 08:50:08 The performance characteristics of some immunohistochemical stains, fluorescence in-situ hybridization tests and immunophenotyping by flow cytometry cited in this report (if any) were determined by the Surgical Pathology Department at [facility] as part of an ongoing quality assurance practice manager program and in compliance with federally mandated [...] characteristics determined by the Surgical Pathology Department [facility]. It has not been cleared or approved by the U. S. Food and Drug Administration. REPORT IMAGES AND SCANNED DOCUMENTS, IF INCLUDED, ONLY VIEWABLE IN PDF VERSION OF REPORTe o Shmuel Stewart MD LAB PATHOLOGY ORDERABLES Fin al Result * (ABNORMAL) eGFR (11/12/2024 1:55 PM DIRECTOR CAREER SERVICES) eGFR 27(L) >=60 mL/min/1. 73 m2 Comment: [...] last reviewed 2021. Blood 11/12/2024 1:55 PM DIRECTOR CAREER SERVICES 11/12/2024 11:28 PM DIRECTOR CAREER SERVICES Shmuel Stewart MD LAB [place]LO[place] [address] [address] [place] [address] * C4 complement (11/12/2024 1:55 PM DIRECTOR CAREER SERVICES) Pathologist [facility] Complement C4 31 10 - 40 mg/dL Blood 11/12/2024 1:55 PM DIRECTOR CAREER SERVICES 11/12/2024 11:28 PM DIRECTOR CAREER SERVICES Narrative NEW - 11/12/2024 11:36 PM DIRECTOR CAREER SERVICES Fax results to Dr Arielle Stewart [phone] Shmuel Stewart MD LAB BLOOD ORDERABLES Final R [facility] Performing Organization Address [facility] Co de Phone Number [place] [address] [address] Department [place] [address] * (ABNORMAL) Immunoglobulin free light chains (11/12/2024 1:55 PM DIRECTOR CAREER SERVICES) [facility] Chumuckla/Lambda ratio 1.50 0.26 - 1.65 Chumuckla free light chain 6.61(H) 0.33 - 1.94 mg/dL [facility] Comment: Interpretive Data The Nupur Ig Chumuckla FLC assay procedure was used. Results from different manufacturers or methods may not be comparable. Serial testing should be performed using the same method. Lambda free light chain 4.28(H) 0.57 - 2.63 mg/dL [facility] Comment: Interpretive Data The Nupur Ig Lambda FLC assay procedure was used. Results from different manufacturers or methods may not be comparable. Serial testing should be performed using the same method. Blood 11/12/2024 1:55 PM DIRECTOR CAREER SERVICES 11/12/2024 9:14 PM DIRECTOR CAREER SERVICES Narrative NEW - 11/13/2024 7:18 AM DIRECTOR CAREER SERVICES Fax results to Dr Arielle Stewart [phone] Shmuel Stewart MD LAB BLOOD ORDERABLES Final RUST Performing Organization Address [facility] Co de Phone Number [place] [address] [address] Department [place] [address] * (ABNORMAL) Urinalysis reflex to microscopic and culture Urine, clean voided (11/12/2024 1:55 PM DIRECTOR CAREER SERVICES) Pathologist [facility] Color, ur Yellow Yellow Clarity, ur Turbid(A) [...] Reflex to microscopic UA will be performed. [facility] Urine, clean voided 11/12/2024 1:55 PM DIRECTOR CAREER SERVICES 11/12/2024 9:14 PM DIRECTOR CAREER SERVICES Narrative CERNER - 11/12/2024 9:32 PM DIRECTOR CAREER SERVICES Fax results to Dr Arielle Stewart [phone] Shmuel Stewart MD LAB MICROBIOLOGY - GENERAL O RDERABLES Final Result [facility] [address] [address] Department [place] [address] * (ABNORMAL) Protein / creatinine ratio, urine, random (11/12/2024 1:55 PM DIRECTOR CAREER SERVICES) Protein, ur, quant 197.6 mg/dL Comment: Interpretive Data No reference range established. Current interpretive data was last revised 2019. Creatinine Ur 44.9 mg/dL [facility] Comment: Interpretive Data No reference range established. Current interpretive data was last revised 2019. Protein/creatinin e ratio 4,400.9(H ) 0.0 - 180.0 mg/g CR [facility] Urine 11/12/2024 1:55 PM DIRECTOR CAREER SERVICES 11/12/2024 9:14 PM DIRECTOR CAREER SERVICES Narrative NEW - 11/12/2024 10:10 PM DIRECTOR CAREER SERVICES Fax results to Dr Arielle Stewart [phone] Shmuel Stewart MD LAB URINE ORDERABLES Final R esult Performing Organization Address [facility] Co de Phone Number KIMBERLYDVAID [address] [address] Department [place], [place] [id number] * (ABNORMAL) Urinalysis, microscopic only (11/12/2024 1:55 PM DIRECTOR CAREER SERVICES) WBC, ur 0-5 0 - 5 /HPF RBC, ur 0-2 0 - 2 /HPF [facility] Epithelial cells, squamous, ur 1-5 0 - 5 /HPF [facility] Mucous, ur Present(A) [facility] Culture Reflex Comment Reflex conditions for urine culture (WBC >10) not met. [facility] Urine, clean voided 11/12/2024 1:55 PM DIRECTOR CAREER SERVICES 11/12/2024 9:14 PM DIRECTOR CAREER SERVICES Shmuel Stewart MD LAB URINE ORDERABLES Final R esult Performing Organization Address [facility] de Phone Number KIMBERLYDAVID GUI[place] [address] [address] [facility] [employer] [place] [address] * Erythrocyte sedimentation rate (11/12/2024 1:55 PM DIRECTOR CAREER SERVICES) Erythrocyte sedimentation rate 15 1 - 30 mm/hr Blood (Blood, Venous) 11/12/2024 1:55 PM DIRECTOR CAREER SERVICES 11/12/2024 9:14 PM DIRECTOR CAREER SERVICES Narrative NEW - 11/12/2024 10:00 PM DIRECTOR CAREER SERVICES Fax results to Dr Arielle Stewart [phone] Shmuel Stewart MD LAB BLOOD ORDERABLES Final R esult Performing Organization Address [facility] Co de Phone Number KIMBERLYDAVID GUILLEN [address] [address] Department [employer] [place] [address] * (ABNORMAL) CBC without differential (11/12/2024 1:55 PM DIRECTOR CAREER SERVICES) Pathologist [facility] WBC 8.2 3.8 - 9.9 K/cumm [...] CH Blood (Blood, Venous) 11/12/2024 1:55 PM DIRECTOR CAREER SERVICES 11/12/2024 9:14 PM DIRECTOR CAREER SERVICES Narrative NEW CH - 11/12/2024 9:42 PM DIRECTOR CAREER SERVICES Fax results to Dr Arielle Stewart [phone] Shmuel Stewart MD LAB BLOOD ORDERABLES Final R esult [facility] [address] [address] [place] [address] * Complement, total (11/12/2024 1:55 PM DIRECTOR CAREER SERVICES) Pathologist [facility] Complement hemolytic 64 30 - 75 units/mL Nielsen ref Lab Comment: Test Performed by: [facility] [address] [place] [id number] [employer] Founder: Ilir Prado Ph.D.; CLIA# [id number] Blood (Blood, Venous) 11/12/2024 1:55 PM DIRECTOR CAREER SERVICES 11/12/2024 9:14 PM DIRECTOR CAREER SERVICES Narrative KIMBERLYNER CH - 11/17/2024 1:19 PM DIRECTOR CAREER SERVICES Fax results to Dr Arielle Stewart [phone] Shmuel Stewart MD LAB BLOOD ORDERABLES Final R esult Performing Organization Address [facility] Co de Phone Number NEW [address] Christina [facility] [employer] [place] [address] Nielsen ref Lab * C3 complement (11/12/2024 1:55 PM DIRECTOR CAREER SERVICES) [facility] Complement C3 124 90 - 180 mg/dL Blood (Blood, Venous) 11/12/2024 1:55 PM DIRECTOR CAREER SERVICES 11/12/2024 11:28 PM DIRECTOR CAREER SERVICES Narrative [facility] 11/12/2024 11:36 PM DIRECTOR CAREER SERVICES Fax results to Dr Arielle Stewart [phone] Shmuel Stewart MD LAB BLOOD ORDERABLES Final R [facility] Performing Organization Address [facility] Co de Phone Number [place] [address] [address] Christina Department [employer] [place] [address] * (ABNORMAL) PTH (11/12/2024 1:55 PM DIRECTOR CAREER SERVICES) [facility] PTH 81(H) 15 - 65 pg/mL Blood (Blood, Venous) 11/12/2024 1:55 PM DIRECTOR CAREER SERVICES 11/12/2024 11:28 PM DIRECTOR CAREER SERVICES Narrative [facility] - 11/12/2024 11:29 PM DIRECTOR CAREER SERVICES Fax results to Dr Arielle Stewart [phone] Shmuel Stewart MD LAB BLOOD ORDERABLES Final R [facility] Performing Organization Address [facility] Co de Phone Number [place] [address] [facility] [place] [address] * Creatine kinase (CK), total (11/12/2024 1:55 PM DIRECTOR CAREER SERVICES) [facility] CK 77 30 - 200 Units/L Blood (Blood, Venous) 11/12/2024 1:55 PM DIRECTOR CAREER SERVICES 11/12/2024 11:28 PM DIRECTOR CAREER SERVICES Narrative CERNER CH - 11/12/2024 11:43 PM DIRECTOR CAREER SERVICES Fax results to Dr Arielle Stewart [phone] Shmuel Stewart MD LAB BLOOD ORDERABLES Final R esult CERNER [address] [place] [address] * (ABNORMAL) Renal function panel (11/12/2024 1:55 PM DIRECTOR CAREER SERVICES) Pathologist [facility] Sodium 138 135 - 145 mmol/L Potassium, [...] CH Blood (Blood, Venous) 11/12/2024 1:55 PM DIRECTOR CAREER SERVICES 11/12/2024 11:28 PM DIRECTOR CAREER SERVICES Narrative CERNER CH - 11/12/2024 11:29 PM DIRECTOR CAREER SERVICES Fax results to Dr Arielle Stewart [phone] Shmuel Stewart MD LAB BLOOD ORDERABLES Final R esult [place] [address] [place] [address] * SCREENING MAMMOGRAM BILATERAL W [...] Stool DNA - Cologuard Negative Not Applicable [employer] (CLIA #:[id number]) Comment: A negative result indicates a low [...] (Radha Perez al, N Engl J Med 2014;370(14):3645-1543) The normal value (reference range) for this assay is negative. COLOGUARD RE-SCREENING RECOMMENDATION: Periodic routine colorectal cancer screening is an important part of preventive healthcare for asymptomatic persons at average risk for colorectal cancer. Following a negative Cologuard result, the [place] Cancer Society and U.S. Multi-Society Task Force screening guidelines recommend a Cologuard re-screening interval of 3 years. References: [place] [employer] Society (ACS). Colorectal cancer prevention and early detection. [place], [place]: [place] [employer] Society; [updated 2015Feb 12]. https://www.cancer.org/cancer/wxptf-ljuljp-uattfw/pfublwpzf-uyxgbvlta-dlkyypo/ac s-rec ommendations.html. Accessed June 21, 2018; Mohinder DK, Renetta LOMAX, Keshawn CortezK, Colorectal Cancer Screening: Recommendations for Physicians and Patients from the U.S. Multi-Society Task Force on Colorectal Cancer Screening, Am J Gastroenterology 2017; 112:1959-2972. TEST TYPE: Composite algorithmic analysis of stool [...] interval of every 3 years by the [place] Cancer Society and U.S. Multi-Society Task Force. [...] can be accessed at the following location: www.inContact.DigitalTown/results. Additional description of the Cologuard test process, warnings and precautions can be found at www.cologuardtest.com. Rx only. Stool 03/09/2021 1:30 PM CDT 03/10/2021 4:58 PM CDT Jamaal Solorio MD LAB BODY FLUIDS AND STOOL S ORDERABLES Final Result Performing Organization Address City/[facility] Co de Phone Number [employer] (CLIA #:[id number]) [place] [address] * Hepatitis C antibody (02/04/2021 3:49 PM [...] - GENERA [place] [address] [address] Department [place] [employer] [place] [address] from Last 3 Months or Most Recently Relevant to Health Maintenance Insurance CIGNA CIGNA IBEW CIGNA Care Teams Curtain Inspector Relationship Specialty Start Date End [place] [address] PCP - General Family Medicine 01/11/21
--- OUTSIDE RECORDS SUMMARY | 2024-12-15 14:21 | XMS_ITS | Referral Summary ---
Author Organization [facility] [email or web address] Address [address] [place] [address] Care Team Providers Care Manager Budget Name Role Phone Unavailable Primary Care Provider Unavailabl e Source Comments [facility] [email or web address],non-owned Affiliates and Associated Physician Practices is amultiple site organization consisting of ambulatory clinics and hospital sitesin [place], [place], [place] and [place]. This disclosure is being madepursuant to the Care Everywhere program and may not contain all information available regarding this patient. Last updated 18.[facility] [email or web address] Allergies Active Allergy Reactions Criticality Noted Date Comments Hydrochlorothiazide Nausea and/or Vomiting Medium 11/0 10/2015 Sulfa Drugs Vomiting 04/03/2019 Hydrocodone-Acetaminophen Psychiatric,Vomiting Medium 04/03/2019 Medications * Be aware that medications may not be up to date on this document. Alwaysverify current medications with the patient. Medication Sig Dispensed Refills Start Date End Date Status fluticasone propionate (FLONASE) 50 MCG/ACT nasal spray [place] 2 sprays into each nostril once daily [...] Comments Blood Pressure 128/78 10/04/2020 2:44 PM WEDDING TRANSPORTATION DRIVER Pulse 88 10/04/2020 2:44 PM WEDDING TRANSPORTATION DRIVER Temperature 36.8 C (98.2 F) 10/04/2020 2:44 PM WEDDING TRANSPORTATION DRIVER Respiratory Rate 20 10/04/2020 2:44 PM WEDDING TRANSPORTATION DRIVER Oxygen Saturation 97% 11/01/2019 4:10 PM WEDDING TRANSPORTATION DRIVER Inhaled Oxygen Concentration - - Weight 86.2 kg (190 lb) 11/01/2019 4:10 PM WEDDING TRANSPORTATION DRIVER Height 165.1 cm (5' 5 ) 11/01/2019 4:10 PM WEDDING TRANSPORTATION DRIVER Body Mass Index 31.62 11/01/2019 4:10 PM WEDDING TRANSPORTATION DRIVER Plan of Treatment Not on file
--- OUTSIDE RECORDS SUMMARY | 2024-12-15 14:21 | XMS_ITS | Patient Health Summary ---
Author Organization [facility] Address [address] [place] [address] Care Team Providers Care Children'S Attendant Name Role Phone Unavailable Primary Care Provider Unavailabl e Note from [facility],non-owned Affiliates and Associated Physician Practices is amultiple site organization consisting of ambulatory clinics and hospital sitesin [place], [place], [place] and [place]. This disclosure is being madepursuant to the Care Everywhere program and may not contain all information available regarding this patient. Last updated 18.[facility] Allergies * Hydrochlorothiazide(Nausea and/or Vomiting) -Medium Criticality * Sulfa Drugs(Vomiting) * Hydrocodone-Acetaminophen(Psychiatric,Vomiting) -Medium Criticality Medications * Be aware that medications may not be up to date on this document. Alwaysverify current medications with the patient. * fluticasone propionate (FLONASE) 50 MCG/ACT nasal spray(Started 04/03/2019) [place] 2 sprays into each nostril once daily [...] Comments Blood Pressure 128/78 10/04/2020 2:44 PM ELECTROMECHANICAL ENGINEER Pulse 88 10/04/2020 2:44 PM ELECTROMECHANICAL ENGINEER Temperature 36.8 C (98.2 F) 10/04/2020 2:44 PM ELECTROMECHANICAL ENGINEER Respiratory Rate 20 10/04/2020 2:44 PM ELECTROMECHANICAL ENGINEER Oxygen Saturation 97% 11/01/2019 4:10 PM ELECTROMECHANICAL ENGINEER Inhaled Oxygen Concentration - - Weight 86.2 kg (190 lb) 11/01/2019 4:10 PM ELECTROMECHANICAL ENGINEER Height 165.1 cm (5' 5 ) 11/01/2019 4:10 PM ELECTROMECHANICAL ENGINEER Body Mass Index 31.62 11/01/2019 4:10 PM ELECTROMECHANICAL ENGINEER Procedures * COVID-19 SARS-COV-2 PCR QUAL ([facility])(Performed 10/04/2020) Performed for Acute non-recurrent maxillary sinusitis * INFLUENZA A+B - POINT OF CARE (AMB)(Performed 11/01/2019) Performed for Flu-like symptoms Results * COVID-19 SARS-COV-2 PCR QUAL ([facility]) (10/04/2020 2:38 PM ELECTROMECHANICAL ENGINEER) SARS-CoV-2 CLARA Not Detected Not Detected [facility] INSURANCE BILL Comment: This nucleic acid amplification test was developed and its performance characteristics determined by [employer]. Nucleic acid amplification tests include PCR and [...] NASOPHARYNGEAL STRUCTURE / Unknown 10/04/2020 2:38 PM ELECTROMECHANICAL ENGINEER 10/05/2020 Narrative Resulting Agency Comment Lab Testing performed at: [employer] [address] [phone] Hernandez L Klostermann STEAM SHOVEL OPERATOR-LAB COORDINATOR LAB - MICRO BIOLOGY ORDERABLES [facility] INSURANCE BILL [address] [place] [address] * INFLUENZA A+B - POINT OF CARE (AMB) (11/01/2019 4:30 PM ELECTROMECHANICAL ENGINEER) Influenza A Antigen Rapid Negative Negative Influenza B Antigen Rapid Negative Negative Influenza Internal Control present NEGATIVE - POSITIVE Influenza Lot Number [id number] Influenza Expiration Date 01 22 2021 Other NASOPHARYNGEAL SWAB / Unknown 11/01/2019 4:30 PM ELECTROMECHANICAL ENGINEER Vonda Cohen STEAM SHOVEL OPERATOR-LAB COORDINATOR LAB - POINT OF CA RE ORDERABLES
[2024-12-16 09:08] LABS: SM Antibody <1.0 NEG AI (<1.0 NEG); SM/RNP Antibody <1.0 NEG AI (<1.0 NEG); SS-A <1.0 NEG AI (<1.0 NEG); SS-B <1.0 NEG AI (<1.0 NEG)
[2024-12-17 16:37] LABS: Anti Glomerular Basement Memb <1.0 AI
== END 2024-12-15 12:43 | disposition home or self-care (01) ==
LOC: ANHLAB 12:44
PROVIDERS: PCP Hospitalist; Visit Provider Internal Medicine Nephrology
DX: R76.0 Raised antibody titer (principal); N18.4 Chronic kidney disease, stage 4 (severe); R80.1 Persistent proteinuria, unspecified
CPT/HCPCS: 36415; 82595; 83520; 85652; 86036; 86038; 86225; 86235; 86430

== ENCOUNTER 2025-02-06 07:02 | Outpatient (CLI) | payer OTHER, SELFPAY ==
[2025-01-26 13:25] VITALS: BMI 23.6
--- NOTE | 2025-01-26 13:26 | PC.NURSE ---
Pre Radiology instructions Report to the outpatient sagrario cuba on date _[id number]_ at time _0730_ for procedure Time: __929__ YOU MAY BE MONITORED AT HOSPITAL FOR UP TO 4 HOURS AFTER YOUR PROCEDURE. A visitor will be allowed to accompany the patient into the hospital. You and your visitor will be asked to self-screen and do not enter if you have any COVID symptoms. A mask is OPTIONAL within the hospital. Patients are to have no food or drink 6 hours prior to procedure time Driving will be restricted after the procedure, you must have a person to drive you home. Labs will be drawn in preop area and once reviewed, you will be taken to radiology area for procedure. When the procedure is completed, you will be taken to outpatient where you will be monitored for several hours. You may have one visitor in this area. Other than holding anti-coagulants, patient may take other medication(s) as scheduled. Prior to your appointment date patients are instructed to hold anti-coagulants after discussing with ordering provider to stop. If unable to discontinue anti-coagulants please notify radiologist. ? No aspirin or warfarin (Coumadin) for 7 days prior to the procedure. ? No clopidogrel (Plavix), ticagrelor (Brilinta), prasugrel (Effient) or dabigatran (Pradaxa) for 5 days prior to the procedure. ? No rivaroxaban (Xarelto), apixaban (Eliquis), dipyridamole (Aggrenox or Persantine) or cilostazol (Pletal) for 2 days prior to the procedure. Medications to discontinue per physician: ____None____ Date to take last dose: Please leave all valuables, including medications, at home the day of procedure. The hospital will not accept responsibility for valuables. Wear comfortable, loose fitting clothing.? Follow any additional instructions given to you from ordering provider. Telephone instructions given to __Colleen__and asked if any additional questions and then verbalized understanding. Patient advised to call scheduling provider office or registration scheduling [phone] if any additional questions.
--- OUTSIDE RECORDS SUMMARY | 2025-02-06 07:05 | XMS_ITS | Clinical Summary ---
Author Organization [facility] Address [address] [place] [address] Care Team Providers Care Double End Sewer Name Role Phone Unavailable Primary Care Provider Unavailabl e Source Comments [facility],non-owned Affiliates and Associated Physician Practices is amultiple site organization consisting of ambulatory clinics and hospital sitesin [place], [place], [place] and [place]. This disclosure is being madepursuant to the Care Everywhere program and may not contain all information available regarding this patient. Last updated 18.[facility] Allergies Active Allergy Reactions Criticality Noted Date Comments Hydrochlorothiazide Nausea and/or Vomiting Medium 11/0 10/2015 Sulfa Drugs Vomiting 04/03/2019 Hydrocodone-Acetaminophen Psychiatric,Vomiting Medium 04/03/2019 Medications * Be aware that medications may not be up to date on this document. Alwaysverify current medications with the patient. fluticasone propionate (FLONASE) 50 MCG/ACT nasal spray [place] 2 sprays into each nostril once daily [...] Tobacco: Former Smokeless Tobacco: Current Comments:Currently vapes Comments No Sex and Gender Information Value Date Recorded Sex Assigned at Not on file Legal Sex Female 7:58 AM CDT Gender Identity Not on file Sexual Orientation Not on file Last Filed Vital Signs Vital Sign Reading Time Taken Comments Blood Pressure 128/78 10/04/2020 2:44 PM PRODUCTION CONTROL SPECIALIST Pulse 88 10/04/2020 2:44 PM PRODUCTION CONTROL SPECIALIST Temperature 36.8 C (98.2 F) 10/04/2020 2:44 PM PRODUCTION CONTROL SPECIALIST Respiratory Rate 20 10/04/2020 2:44 PM PRODUCTION CONTROL SPECIALIST Oxygen Saturation 97% 11/01/2019 4:10 PM PRODUCTION CONTROL SPECIALIST Inhaled Oxygen Concentration - - Weight 86.2 kg (190 lb) 11/01/2019 4:10 PM PRODUCTION CONTROL SPECIALIST Height 165.1 cm (5' 5 ) 11/01/2019 4:10 PM PRODUCTION CONTROL SPECIALIST Body Mass Index 31.62 11/01/2019 4:10 PM PRODUCTION CONTROL SPECIALIST Plan of Treatment Health Maintenance Due Date Last Done Comments COLOGUARD (AGES 45-75) - COL ON CA SCREENING 1961 COLON MONITORING 1961 COLONOSCOPY - COLON CA SCREENING 1961 CT COLONOGRAPHY - COLON CA SCREENING 1961 Colorectal Cancer Screening 1961 FIT - COLON CA SCREENING 1961 FLEX SIG - COLON CA SCREENING 1961 LIPID TESTING 1961 MAMMOGRAM 1961 HIV SCREENING 1976 HEPATITIS C SCREENING 05/01/1979 DTAP/TDAP/TD VACCINES (1 - Tdap) 1980 PNEUMOCOCCAL VACCINE 50+ (1 of 1 - PCV) 2011 ZOSTER VACCINE (1 of 2) 2011 SCREENING FOR DIABETES 04/03/2019 COVID-19 VACCINE (1 - 2023-2 5 season) 2024 DEPRESSION SCREENING 10/22/2024 INFLUENZA VACCINE (Season Ended) 2025 Respiratory Syncytial Virus (RSV) Vaccine Pt: or [...] to complete this topic MENINGOCOCCAL (Group B) VACC INE SHARED DECISION-MAKING Aged Out No longer eligibl e based on patient's age to complete this topic MENINGOCOCCAL GROUPS A/C/Y/W VACCINE Aged Out No longer eligible b ased on patient's age to complete this topic
--- OUTSIDE RECORDS SUMMARY | 2025-02-06 07:05 | XMS_ITS | Clinical Summary ---
Author Organization [facility] Address [address] [address] Care Team Providers Care Wildlife Biologist Name Role Phone Jamaal Garcia MD Primary Care Provider [phone] Allergies Active Allergy Reactions Criticality Noted Date [...] Comments Breast Cancer Screening 1961 Pneumococcal Vaccine: 50+ Years (1 of 2 - PCV) 1980 Colorectal Cancer Screening: Annual FOBT 2010 Colorectal Cancer Screening: Colonoscopy 2010 Colorectal Cancer Screening: Sigmoidoscopy 2010 Influenza Vaccine Completed 09/10/2024, 08/22/2023, 08/22/2022 Hepatitis B Vaccine Aged Out No longe r eligible based on patient's age to complete this topic Care Teams Wildlife Biologist Relationship Specialty Start Date End [place] [address] PCP - General Family Medicine 8/29/22
--- OUTSIDE RECORDS SUMMARY | 2025-02-06 07:05 | XMS_ITS | Clinical Summary ---
Author Organization [facility] [address] [facility] Address [address] [place] [address] Care Team Providers Care Conveyor Worker Name Role Phone Jamaal Solorio MD Primary Care Provider [phone] Allergies Active Allergy Reactions Criticality Noted Date Comments Hydrochlorothiazide Nausea And Vomiting Medium 016 Hydrocodone-Acetaminophen Other (See comments),Vomiting Medium 04/03/2019 Sulfa (Sulfonamide Antibiotics) Nausea only,Vomiting High 02/04/2021 Medications carvediloL (COREG) 6.25 mg tablet Take 1 tablet (6.25 mg total) by mouth 2 (two) times a day with meals 60 tablet 4 04/23/20 25 Active lisdexamfetami ne (VYVANSE) 30 mg capsule Take 1 capsule (30 mg total) by mouth every morning 30 capsule 5 02/08/20 25 Active buPROPion XL (WELLBUTRIN XL) 150 mg 24 hr tablet TAKE 3 TABLETS BY MOUTH EVERY MORNING 270 tablet 5 Active traZODone (DESYREL) 100 mg tabletIndicati ons:Generalize d anxiety disorder TAKE 1 TABLET BY MOUTH AT BEDTIME NEEDED FOR SLEEP 90 tablet 2 5 Active traZODone (DESYREL) 100 mg tabletIndicati ons:Generalize d anxiety disorder TAKE 1 TABLET BY MOUTH EVERY DAY AT BEDTIME NEEDED FOR SLEEP 100 tablet 1 4 01/09/20 25 Discontinued Active Problems Problem Noted Date Diagnosed Date UTI symptoms 09/10/2024 Assessment & Plan (09/10/2024 1:17 PM DAIRY CONSULTANT): Endorsing dysuria, low concern for pyelo at this time Will order UA and follow up with results Dyslipidemia 04/03/2024 Assessment & Plan (04/03/2024 1:20 PM CDT): Borderline high LDL and total cholesterol; encourage low-fat high-fiber diet Continue to monitor CKD (chronic kidney disease) stage 4, GFR 15-29 ml/min 04/03/2024 Assessment & Plan (09/10/2024 1:16 PM DAIRY CONSULTANT): No concern sin this regard, follow with shoe repairman Will continue to monitor peripherally Assessment & Plan (06/10/2024 2:16 PM CDT): For Nephrology; most recent EGFR was below 30, stable [place] and lambda light chains are elevated with normal ratio; positive RAMU Will follow recommendations per Nephrology Assessment & Plan (04/03/2024 1:20 PM CDT): Patient continues to have labile EGFR, with symptoms going up and down Will refer to nephrology for evaluation continue surveillance Attention deficit hyperactiv ity disorder (ADHD), predominantly hyperactive type 02/21/2024 Assessment & Plan (09/10/2024 4:02 PM DAIRY CONSULTANT): Pt stable in this regard and is [...] 11/10/2022 Assessment & Plan (09/10/2024 1:43 PM DAIRY CONSULTANT): Stable, is following with counselor and is [...] able Assessment & Plan (11/10/2022 1:10 PM DAIRY CONSULTANT): Reviewed pharmacologic treatment options for management of [...] 03/02/2021 Assessment & Plan (09/10/2024 1:12 PM DAIRY CONSULTANT): Mildly elevated at time of presentation, suspect [...] 03/02/2021 Assessment & Plan (09/10/2024 1:39 PM DAIRY CONSULTANT): Mood much improved Continue Wellbutrin XL Assessment & Plan (06/10/2024 2:15 PM CDT): Stable, patient continues to have significant grief related to loss of ; patient has begun to engage in outside activities, including going to islam; starting to go to stores at time; continues to have days of significant grief Recommend continued engagement with social activities, including islam as well as groups such as group share Assessment & Plan (04/03/2024 1:19 PM CDT): Not well controlled, acutely worsened; patient's recently Continue bupropion 450 mg daily; patient to follow up with individual counseling Patient given resources for grief Assessment & Plan (11/10/2022 1:09 PM DAIRY CONSULTANT): No changes, buspirone added to current regimen. [...] Encounters Date Type Department Care Team Description 01/12/2025 Orders Only [facility] Health Information Management [address] [place] [address] Scanning, Provider 12/30/2024 9:30 AM CDT Therapy [facility] [address] [place], [place] [phone] Addie Fung LCSW BHAVANI (generalized anxiety disorder) (Primary Dx); MDD (major depressive disorder), recurrent episode, moderate (HCC); Grief 12/16/2024 9:30 AM DAIRY CONSULTANT Therapy [facility] [address] [place], [place] [phone] Addie Fung LCSW BHAVANI (generalized anxiety disorder) (Primary Dx); MDD (major depressive disorder), recurrent episode, moderate (HCC); Grief 11/19/2024 3:24 PM DAIRY CONSULTANT - 11/19/2024 11:59 PM DAIRY CONSULTANT Hospital Encounter [address] [address] Chronic kidney disease, stage IV (severe) (HCC) Discharge Disposition: Discharge to home or self care 11/19/2024 3:15 PM DAIRY CONSULTANT Lab [facility] Outpatient Lab at [address] [address] Chronic kidney disease, stage IV (severe) (HCC) (Primary Dx) 11/12/2024 1:55 PM DAIRY CONSULTANT - 11/12/2024 11:59 PM DAIRY CONSULTANT Hospital Encounter [address] [address] Chronic kidney disease, stage IV (severe) (HCC) Discharge Disposition: Discharge to home or self care 11/12/2024 1:45 PM DAIRY CONSULTANT Lab [facility] Outpatient Lab at [address] [address] Chronic kidney disease, stage IV (severe) (HCC) (Primary Dx); Hypertension, essential from Last 3 Months Immunizations Immunization Administration [...] - 10/21/1996 ORAL SURGERY 07/22/2024 - 08/21/2024 [facility] Oral Surgery in [place] - [facility] jaw bones removed Medical History Medical History [...] Tobacco: Never Tobacco Cessation:Counseling Given: Not Answered [facility] Utilities Answer Date Recorded In the past 12 months has [employer], [employer], or water Who@ threatened to shut off services in your [...] 06/24/2024 How often do you attend chur or sikh services? More than 4 times per year 06/24/2024 Do you belong to any clubs o r organizations such as islam groups, unions, fraternal or athletic groups, or [...] staff should administer the PHQ-9) 1 06/24/2024 [facility] - Occupational Stress Questionnaire Answer Date Recorded [...] things needed for daily living? No 06/24/2024 PHQ-9 Answer Date Recorded PHQ-9 Total Score 9 06/24/2024 Housing Stability Vital Sign Answer Eddie e Recorded In the last 12 months, was t here a time when you were not able to pay the mortgage or rent on time? No 06/24/2024 In the past 12 months, how m any times have you moved where you were living? 0 06/24/2024 At any time in the past 12 m [facility], were you homeless or living in a assisted (including now)? No 06/24/2024 Comments No Sex [...] Comments Blood Pressure 146/90 09/10/2024 10:37 AM DAIRY CONSULTANT Pulse 72 09/10/2024 10:37 AM DAIRY CONSULTANT Temperature 36.6 C (97.8 F) 09/10/2024 10:37 AM DAIRY CONSULTANT Respiratory Rate 18 09/10/2024 10:37 AM DAIRY CONSULTANT Oxygen Saturation 99% 09/10/2024 10:37 AM DAIRY CONSULTANT Inhaled Oxygen Concentration - - Weight 68.5 kg (151 lb) 09/10/2024 10:37 AM DAIRY CONSULTANT Height 165.1 cm (5' 5 ) 09/10/2024 10:37 AM DAIRY CONSULTANT Body Mass Index 25.13 09/10/2024 10:37 AM DAIRY CONSULTANT Plan of Treatment Health Maintenance Due Date [...] Procedure Name Priority Date/Time Associated Diagnosis Comments SCAN - OTHER ORDERS 01/12/2025 2 :37 PM CDT CLINICAL PATHOLOGY REPORT Routine 11/19/2024 9:00 AM DAIRY CONSULTANT IMMUNOFIXATION, URINE Routine 11/19/2024 9:00 AM DAIRY CONSULTANT Chronic kidney disease, stage IV (severe) (HCC) UREA NITROGEN, URINE, 24 HOUR RESULT Routine 11/19/2024 9:00 AM DAIRY CONSULTANT Chronic kidney disease, stage IV (severe) (HCC) VOLUME AND PERIOD, URINE, 24 HOUR Routine 11/19/2024 9:00 AM DAIRY CONSULTANT Chronic kidney disease, stage IV (severe) (HCC) PROTEIN ELECTROPHORESIS, URINE, 24 HOUR RESULT Routine 11/19/2024 9:00 AM DAIRY CONSULTANT Chronic kidney disease, stage IV (severe) (HCC) UREA NITROGEN, URINE, 24 HOUR Routine 11/19/2024 9:00 AM DAIRY CONSULTANT Chronic kidney disease, stage IV (severe) (HCC) PROTEIN ELECTROPHORESIS, URINE, 24 HOUR WITH IMMUNOFIXATION Routine 11/19/2024 9:00 AM DAIRY CONSULTANT Chronic kidney disease, stage IV (severe) (HCC) CLINICAL PATHOLOGY REPORT Routine 11/12/2024 1:55 PM DAIRY CONSULTANT EGFR Routine 11/12/2024 1:55 PM DAIRY CONSULTANT Chronic kidney disease, stage IV (severe) (HCC) URINALYSIS, MICROSCOPIC ONLY Routine 11/12/2024 1:55 PM DAIRY CONSULTANT Chronic kidney disease, stage IV (severe) (HCC) C3 COMPLEMENT Routine 11/12/2024 1:55 PM DAIRY CONSULTANT Chronic kidney disease, stage IV (severe) (HCC) C4 COMPLEMENT Routine 11/12/2024 1:55 PM DAIRY CONSULTANT Chronic kidney disease, stage IV (severe) (HCC) COMPLEMENT, TOTAL Routine 11/12/2024 1:5 5 PM DAIRY CONSULTANT Chronic kidney disease, stage IV (severe) (HCC) CBC WITHOUT DIFFERENTIAL Routine 11/12/2024 1:55 PM DAIRY CONSULTANT Chronic kidney disease, stage IV (severe) (HCC) CREATINE KINASE (CK), TOTAL Routine 11/12/2024 1:55 PM DAIRY CONSULTANT Chronic kidney disease, stage IV (severe) (HCC) IMMUNOTYPING Routine 11/12/2024 1:55 PM DAIRY CONSULTANT Chronic kidney disease, stage IV (severe) (HCC) IMMUNOGLOBULIN FREE LIGHT CHAINS Routine 11/12/2024 1:55 PM DAIRY CONSULTANT Chronic kidney disease, stage IV (severe) (HCC) ERYTHROCYTE SEDIMENTATION RATE Routine 11/12/2024 1:55 PM DAIRY CONSULTANT Chronic kidney disease, stage IV (severe) (HCC) RENAL FUNCTION PANEL Routine 11/12/2024 1:55 PM DAIRY CONSULTANT Chronic kidney disease, stage IV (severe) (HCC) RAMU QUALITATIVE WITH REFLEX TO RAMU QUANTITATIVE Routine 11/12/2024 1:55 PM DAIRY CONSULTANT Chronic kidney disease, stage IV (severe) (HCC) PTH Routine 11/12/2024 1:55 PM DAIRY CONSULTANT Chronic kidney disease, stage IV (severe) (HCC) PROTEIN / CREATININE RATIO, URINE, RANDOM Routine 11/12/2024 1:55 PM DAIRY CONSULTANT Chronic kidney disease, stage IV (severe) (HCC) URINALYSIS AND REFLEX TO MICROSCOPIC AND CULTURE Routine 11/12/2024 1:55 PM DAIRY CONSULTANT Chronic kidney disease, stage IV (severe) (HCC) SCREENING MAMMOGRAM BILATERAL W BRENDA Schedule [...] Recently Relevant to Health Maintenance Results * SCAN - OTHER ORDERS (01/12/2025 2:37 PM CDT) us Provider Scanning Final Result * Clinical pathology report (11/19/2024 9:00 AM DAIRY CONSULTANT) Miscellaneous 11/19/2024 9:0 0 AM DAIRY CONSULTANT 11/20/2024 8:35 AM DAIRY CONSULTANT Narrative 11/20/2024 4:35 PM DAIRY CONSULTANT EPIC results best viewed via link to PDF [facility] Department of Pathology [address] [place] [id number] Final Report Note to Patients: This [...] the details. Patient Name: LIDIA MAHER Address: [address] [place] [address] Gender: F : 1960 (Age: 64) Service: Location: N : [id number] Hospital #: [id number] Patient Type: SPECIMEN Taken: 11/19/2024 Received: 11/20/2024 [...] determined by the Surgical Pathology Department at [facility] as part of an ongoing senior quality technician program and in compliance with federally mandated [...] characteristics determined by the Surgical Pathology Department [facility]. It has not been cleared or approved by the U. S. Food and Drug Administration. REPORT IMAGES AND SCANNED DOCUMENTS, IF INCLUDED, ONLY VIEWABLE IN PDF VERSION OF REPORTe o Shmuel Stewart MD LAB PATHOLOGY ORDERABLES Fin al Result * Volume and period, urine, 24 hour (11/19/2024 9:00 AM DAIRY CONSULTANT) Volume, ur 1,500 mL Period, Urine Collection 1,500 min [facility] Urine 11/19/2024 9:00 AM DAIRY CONSULTANT 11/19/2024 11:45 PM DAIRY CONSULTANT Narrative [facility] - 11/20/2024 12:15 AM DAIRY CONSULTANT Fax results to Dr Shmuel Stewart [phone] Shmuel Stewart MD LAB URINE ORDERABLES Final R esult Performing Organization Address [facility] de Phone Number [facility] [address] [employer] [place] [address] * Urea nitrogen, urine, 24 hour (11/19/2024 9:00 AM DAIRY CONSULTANT) Urea nitrogen, 24 hr ur 7 5 - 20 g/24H Urine 11/19/2024 9:00 AM DAIRY CONSULTANT 11/19/2024 11:45 PM DAIRY CONSULTANT Narrative [facility] - 11/20/2024 12:25 AM DAIRY CONSULTANT Fax results to Dr Shmuel Stewart [phone] Shmuel Stewart MD LAB URINE ORDERABLES Final R esult Performing Organization Address [facility] de Phone Number [facility] [address] [address] [facility] [place] [employer] [place] [address] * (ABNORMAL) Protein electrophoresis, urine, 24 hour (11/19/2024 9:00 AM DAIRY CONSULTANT) Protein, ur, quant 175.7 mg/dL Comment:No reference range e stablished. Albumin, Ur 75.3 % [facility] Comment:No reference range e stablished. Alpha-1 globulin, Ur 7.8 % [facility] Comment:No reference range e stablished. Alpha-2 globulin, Ur 3.2 % [facility] Comment:No reference range e stablished. Beta globulin, Ur 6.4 % [facility] Comment:No reference range e stablished. Gamma globulin, Ur 7.3 % [facility] Comment:No reference range e stablished. UPEP interp See Cl Path Rpt [facility] Protein, 24 hr, ur 2,530(H) 1 - 150 mg/24H [facility] Urine 11/19/2024 9:00 AM DAIRY CONSULTANT 11/19/2024 11:45 PM DAIRY CONSULTANT Narrative NEW - 11/21/2024 12:21 PM DAIRY CONSULTANT Fax results to Dr Shmuel Stewart [phone] Shmuel Stewart MD LAB URINE ORDERABLES Final R esult Performing Organization Address [facility] de Phone Number [place] [address] [address] [place] [address] * Immunofixation, urine (11/19/2024 9:00 AM DAIRY CONSULTANT) Immunofixation , Ur See Cl Path Rpt Urine 11/19/2024 9:00 AM DAIRY CONSULTANT 11/19/2024 11:45 PM DAIRY CONSULTANT Shmuel Stewart MD LAB URINE ORDERABLES Final R [facility] Performing Organization Address [facility] de Phone Number [facility] [address] [address] [facility] [place] [address] * Immunotyping, serum (11/12/2024 1:55 PM DAIRY CONSULTANT) Immunofixation See Cl Path Rpt Blood 11/12/2024 1:55 PM DAIRY CONSULTANT 11/12/2024 9:14 PM DAIRY CONSULTANT Narrative NEW - 11/13/2024 12:12 PM DAIRY CONSULTANT Fax results to Dr Arielle Stewart [phone] Shmuel Stewart MD LAB BLOOD ORDERABLES Final R esult Performing Organization Address [facility] Co de Phone Number [place] [address] [address] Department [place] [employer] [place] [address] * (ABNORMAL) RAMU ab ql w/rflx to RAMU qn (11/12/2024 1:55 PM DAIRY CONSULTANT) RAMU Positive 1:320 Comment: Interpretive Data Normal [...] last revised on 2020. Testing performed by: [facility], [address] [place] [address]., [id number] RAMU, quant 1:320 titer NEW Comment:Testing performed by : [facility], [address] [place] [address]., [id number] RAMU, interp Homogeneous (A) NEW Comment:Testing performed by : [facility], [address] [place] [address]., [id number] Blood 11/12/2024 1:55 PM DAIRY CONSULTANT 11/13/2024 10:13 AM DAIRY CONSULTANT Narrative NEW - 11/14/2024 1:07 PM DAIRY CONSULTANT Fax results to Dr Arielle Stewart [phone] Shmuel Stewart MD LAB BLOOD ORDERABLES Final R esult [place] [address] [address] Department [place] [employer] [place] [address] * Clinical pathology report (11/12/2024 1:55 PM DAIRY CONSULTANT) Miscellaneous 11/12/2024 1:5 5 PM DAIRY CONSULTANT 11/13/2024 8:31 AM DAIRY CONSULTANT Narrative 11/16/2024 8:50 AM DAIRY CONSULTANT EPIC results best viewed via link to PDF [facility] Department of Pathology [address] [place] [id number] Final Report Note to Patients: This [...] the details. Patient Name: LIDIA MAHER Address: [address] [place] [address] Gender: F : 1960 (Age: 64) Service: Location: N : [id number] [facility] Center #: [id number] Patient Type: SPECIMEN Taken: 11/12/2024 Received: 11/13/2024 [...] determined by the Surgical Pathology Department at [facility] as part of an ongoing senior quality technician program and in compliance with federally mandated [...] characteristics determined by the Surgical Pathology Department [facility]. It has not been cleared or approved by the U. S. Food and Drug Administration. REPORT IMAGES AND SCANNED DOCUMENTS, IF INCLUDED, ONLY VIEWABLE IN PDF VERSION OF REPORTe o Shmuel Stewart MD LAB PATHOLOGY ORDERABLES Fin al Result * (ABNORMAL) eGFR (11/12/2024 1:55 PM DAIRY CONSULTANT) eGFR 27(L) >=60 mL/min/1. 73 m2 Comment: [...] last reviewed 2021. Blood 11/12/2024 1:55 PM DAIRY CONSULTANT 11/12/2024 11:28 PM DAIRY CONSULTANT Shmuel Stewart MD LAB BLOOD ORDERABLES Final R esult [place] [address] [address] Department [place] [address] * C4 complement (11/12/2024 1:55 PM DAIRY CONSULTANT) Complement C4 31 10 - 40 mg/dL Blood 11/12/2024 1:55 PM DAIRY CONSULTANT 11/12/2024 11:28 PM DAIRY CONSULTANT Narrative NEW - 11/12/2024 11:36 PM DAIRY CONSULTANT Fax results to Dr Arielle Stewart [phone] Shmuel Stewart MD LAB BLOOD ORDERABLES Final R esult Performing Organization Address [facility] de Phone Number [facility] [address] [address] Department of [employer] [place], [place] [phone] * (ABNORMAL) Immunoglobulin free light chains (11/12/2024 1:55 PM DAIRY CONSULTANT) Pathologist [facility] [place]/Lambda ratio 1.50 0.26 - 1.65 [place] free light chain 6.61(H) 0.33 - 1.94 mg/dL [facility] Comment: Interpretive Data The Nupur Ig [place] FLC assay procedure was used. Results from different manufacturers or methods may not be comparable. Serial testing should be performed using the same method. Lambda free light chain 4.28(H) 0.57 - 2.63 mg/dL [facility] Comment: Interpretive Data The Nupur Ig Lambda FLC assay procedure was used. Results from different manufacturers or methods may not be comparable. Serial testing should be performed using the same method. Blood 11/12/2024 1:55 PM DAIRY CONSULTANT 11/12/2024 9:14 PM DAIRY CONSULTANT Narrative NEW - 11/13/2024 7:18 AM DAIRY CONSULTANT Fax results to Dr Arielle Stewart [phone] Shmuel Stewart MD LAB BLOOD ORDERABLES Final R esult Performing Organization Address [facility] de Phone Number [facility] [address] [place] [address] * (ABNORMAL) Urinalysis reflex to microscopic and culture Urine, clean voided (11/12/2024 1:55 PM DAIRY CONSULTANT) Color, ur Yellow Yellow Clarity, ur Turbid(A) Clear [facility] Specific gravity, ur 1.011 1.003 - 1.030 [facility] pH, urine 6.0 [facility] Comment: Interpretive Data U rine pH is affected by diet, medications, systemic acid-base disturbances, and renal tubular function. pH may affect urinary stone formation. For example, urine pH below 6.0 may help reduce the tendency for calcium phosphate stones and pH greater than 6.0 may reduce the tendency for uric acid stone formation. Source: [facility] Current Interpretive Data was last revised on 2017 Protein, ur ql 2+(A) Negative [facility] Glucose, ur ql Negative Negative [facility] Ketones, ur Negative Negative [facility] Bilirubin, ur Negative Negative [facility] Blood, ur Negative Negative [facility] Urobilinogen, ur <2.0 <2.0 mg/dL [facility] Nitrite, ur Negative Negative [facility] Leukocyte esterase, ur 1+(A) Negative [facility] UA reflex comment Reflex to microscopic UA will be performed. [facility] Urine, clean voided 11/12/2024 1:55 PM DAIRY CONSULTANT 11/12/2024 9:14 PM DAIRY CONSULTANT Narrative [facility] - 11/12/2024 9:32 PM DAIRY CONSULTANT Fax results to Dr Arielle Stewart [phone] Shmuel Stewart MD LAB MICROBIOLOGY - GENERAL O RDERABLES Final Result [facility] [address] [address] Department [place] [address] * (ABNORMAL) Protein / creatinine ratio, urine, random (11/12/2024 1:55 PM DAIRY CONSULTANT) Protein, ur, quant 197.6 mg/dL Comment: Interpretive Data No reference range established. Current interpretive data was last revised 2019. Creatinine Ur 44.9 mg/dL [facility] Comment: Interpretive Data No reference range established. Current interpretive data was last revised 2019. Protein/creatinin e ratio 4,400.9(H ) 0.0 - 180.0 mg/g CR [facility] Urine 11/12/2024 1:55 PM DAIRY CONSULTANT 11/12/2024 9:14 PM DAIRY CONSULTANT Narrative [facility] - 11/12/2024 10:10 PM DAIRY CONSULTANT Fax results to Dr Arielle Stewart [phone] Shmuel Stewart MD LAB URINE ORDERABLES Final R esult Performing Organization Address [facility] de Phone Number [facility] [address] [address] Department [place] [address] * (ABNORMAL) Urinalysis, microscopic only (11/12/2024 1:55 PM DAIRY CONSULTANT) Pathologist [facility] WBC, ur 0-5 0 - 5 /HPF RBC, ur 0-2 0 - 2 /HPF [facility] Epithelial cells, squamous, ur 1-5 0 - 5 /HPF [facility] Mucous, ur Present(A) [facility] Culture Reflex Comment Reflex conditions for urine culture (WBC >10) not met. [facility] Urine, clean voided 11/12/2024 1:55 PM DAIRY CONSULTANT 11/12/2024 9:14 PM DAIRY CONSULTANT Shmuel Stewart MD LAB URINE ORDERABLES Final [facility] Performing Organization Address [facility] de Phone Number [facility] [address] [address] [place] [address] * Erythrocyte sedimentation rate (11/12/2024 1:55 PM DAIRY CONSULTANT) Pathologist [facility] Erythrocyte sedimentation rate 15 1 - 30 mm/hr Blood Venous blood specimen / Unknown 11/12/2024 1:55 PM DAIRY CONSULTANT 11/12/2024 9:14 PM DAIRY CONSULTANT Narrative [facility] - 11/12/2024 10:00 PM DAIRY CONSULTANT Fax results to Dr Arielle Stewart [phone] Shmuel Stewart MD LAB BLOOD ORDERABLES Final R esult Performing Organization Address [facility] de Phone Number [facility] [address] [address] Department [place] [address] * (ABNORMAL) CBC without differential (11/12/2024 1:55 PM DAIRY CONSULTANT) Pathologist [facility] WBC 8.2 3.8 - 9.9 K/cumm Hgb 12.3 11.9 - 15.5 g/dL [facility] Hct 39.7 35.6 - 45.5 % [facility] Plt 356 150 - 400 K/cumm [facility] MPV 10.4 9.1 - 12.3 fL [facility] RBC 3.99 3.90 - 5.20 M/cumm [facility] MCV 99.5(H) 81.3 - 96.4 fL [facility] MCH 30.8 27.1 - 33.3 pg [facility] MCHC 31.0(L) 32.3 - 35.7 g/dL [facility] RDW CV 13.2 11.1 - 14.9 % [facility] RDW SD 48.6(H) 35.7 - 48.1 fL [facility] NRBC abs 0.00 0.00 - 0.01 K/cumm [facility] Blood Venous blood specimen / Unknown 11/12/2024 1:55 PM DAIRY CONSULTANT 11/12/2024 9:14 PM DAIRY CONSULTANT Narrative [facility] - 11/12/2024 9:42 PM DAIRY CONSULTANT Fax results to Dr Arielle Stewart [phone] Shmuel Stewart MD LAB BLOOD ORDERABLES Final R esult [place] [address] [address] Department [place] [address] * Complement, total (11/12/2024 1:55 PM DAIRY CONSULTANT) [facility] Complement hemolytic 64 30 - 75 units/mL [facility] Comment: Test Performed by: [facility] [address] [place] [address] Photo Specialist: Ilir Prado Ph.D.; CLIA# [id number] Blood Venous blood specimen / Unknown 11/12/2024 1:55 PM DAIRY CONSULTANT 11/12/2024 9:14 PM DAIRY CONSULTANT Narrative [facility] - 11/17/2024 1:19 PM DAIRY CONSULTANT Fax results to Dr Arielle Stewart [phone] us Shmuel Stewart MD LAB BLOOD ORDERABLES Final R esult Performing Organization Address [facility]/ZIP Co de Phone Number [place] [address] [address] [facility] [place] [employer] [address] Nielsen ref Lab * C3 complement (11/12/2024 1:55 PM DAIRY CONSULTANT) Complement C3 124 90 - 180 mg/dL Blood Venous blood specimen / Unknown 11/12/2024 1:55 PM DAIRY CONSULTANT 11/12/2024 11:28 PM DAIRY CONSULTANT Narrative [facility] 11/12/2024 11:36 PM DAIRY CONSULTANT Fax results to Dr Arielle Stewart [phone] Shmuel Stewart MD LAB BLOOD ORDERABLES Final R esult Performing Organization Address [facility] Co de Phone Number KIMBERLYDAVID GUILL[place] [address] [address] [place] [address] * (ABNORMAL) PTH (11/12/2024 1:55 PM DAIRY CONSULTANT) Pathologist [facility] PTH 81(H) 15 - 65 pg/mL Blood Venous blood specimen / Unknown 11/12/2024 1:55 PM DAIRY CONSULTANT 11/12/2024 11:28 PM DAIRY CONSULTANT Narrative [facility] 11/12/2024 11:29 PM DAIRY CONSULTANT Fax results to Dr Arielle Stewart [phone] Shmuel Stewart MD LAB BLOOD ORDERABLES [facility] Performing Organization Address City/[facility]/ZIP Co de Phone Number [place] [address] [address] [facility] [place] [address] * Creatine kinase (CK), total (11/12/2024 1:55 PM DAIRY CONSULTANT) Pathologist [facility] CK 77 30 - 200 Units/L Blood Venous blood specimen / Unknown 11/12/2024 1:55 PM DAIRY CONSULTANT 11/12/2024 11:28 PM DAIRY CONSULTANT Narrative [facility] - 11/12/2024 11:43 PM DAIRY CONSULTANT Fax results to Dr Arielle Stewart [phone] Shmuel Stewart MD LAB BLOOD ORDERABLES Final R esult Performing Organization Address [facility] [place] [address] [address] [place] [address] * (ABNORMAL) Renal function panel (11/12/2024 1:55 PM DAIRY CONSULTANT) Sodium 138 135 - 145 mmol/L Potassium, [...] classification and Diagnosis of Diabetes Diabetes Care 2021; 46: S19-S40. Current interpretive data was last revised 2022. 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 (Imperiale T. et al, N Engl J Med 2014;370(14):6159-7278) The normal value (reference range) for this assay is negative. COLOGUARD RE-SCREENING RECOMMENDATION: Periodic routine colorectal cancer screening is an important part of preventive healthcare for asymptomatic persons at average risk for colorectal cancer. Following a negative Cologuard result, the [place] [employer] and U.S. Multi-Society Task Force screening guidelines recommend a Cologuard re-screening interval of 3 years. References: [place] [employer] (ACS). Colorectal cancer prevention and early detection. [place], [place]: [place] [employer]; [updated 2015Feb 12]. https://www.cancer.org/cancer/mljzp-apyyui-pmvqfv/kghiswqhx-pmsxfbrgd-mjjqvqg/ac s-rec ommendations.html. Accessed June 21, 2018; Mohinder LAWRENCE, Renetta LOMAX, Keshawn CortezK, Colorectal Cancer Screening: Recommendations for Physicians and Patients from the U.S. Multi-Society Task Force on Colorectal Cancer Screening, Am J Gastroenterology 2017; 112:9936-1531. TEST TYPE: Composite algorithmic analysis of stool [...] interval of every 3 years by the [place] [employer] and U.S. Multi-Society Task Force. [...] can be accessed at the following location: www.[facility].com/results. Additional description of the Cologuard test process, warnings and precautions can be found at www.cologuardtest.com. Rx only. Stool 03/09/2021 1:30 PM CDT 03/10/2021 4:58 PM CDT us Jamaal Solorio MD LAB BODY FLUIDS AND STOOL S ORDERABLES Final Result [employer] (CLIA #:[id number]) [place] [address] 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
--- OUTSIDE RECORDS SUMMARY | 2025-02-06 07:05 | XMS_ITS | Referral Summary ---
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 Name Role Phone Jamaal Solorio MD Primary Care Provider [phone] Encounters Date Type Department Care Team Description 01/12/2025 Orders Only [facility] Health Information Management [address] [place] [address] Scanning, Provider 12/30/2024 9:30 AM CDT Therapy [facility] [address] [place] [address] Addie Fung LCSW BHAVANI (generalized anxiety disorder) (Primary Dx); MDD (major depressive disorder), recurrent episode, moderate (HCC); Grief 12/16/2024 9:30 AM ETL ANALYST Therapy [facility] [address] [place] [address] Addie Fung LCSW BHAVANI (generalized anxiety disorder) (Primary Dx); MDD (major depressive disorder), recurrent episode, moderate (HCC); Grief 11/19/2024 3:24 PM ETL ANALYST - 11/19/2024 11:59 PM ETL ANALYST Hospital Encounter [address] [address] Chronic kidney disease, stage IV (severe) (HCC) Discharge Disposition: Discharge to home or self care 11/19/2024 3:15 PM ETL ANALYST Lab [facility] Outpatient Lab at [address] [address] Chronic kidney disease, stage IV (severe) (HCC) (Primary Dx) 11/12/2024 1:55 PM ETL ANALYST - 11/12/2024 11:59 PM ETL ANALYST Hospital Encounter [facility] [id number] [place] [address] Chronic kidney disease, stage IV (severe) (HCC) Discharge Disposition: Discharge to home or self care 11/12/2024 1:45 PM ETL ANALYST Lab [facility] Outpatient Lab at [address] [address] Chronic kidney disease, stage IV (severe) (HCC) (Primary Dx); Hypertension, essential from Last 3 Months Allergies Active Allergy Reactions Criticality Noted Date Comments Hydrochlorothiazide Nausea And Vomiting Medium 016 Hydrocodone-Acetaminophen Other (See comments),Vomiting Medium 04/03/2019 Sulfa (Sulfonamide Antibiotics) Nausea only,Vomiting High 02/04/2021 Medications carvediloL (COREG) 6.25 mg tablet Take 1 tablet (6.25 mg total) by mouth 2 (two) times a day with meals 60 tablet 11 4 04/23/20 25 Active lisdexamfetami ne (VYVANSE) [...] 09/10/2024 Assessment & Plan (09/10/2024 1:17 PM ETL ANALYST): Endorsing dysuria, low concern for pyelo at this time Will order UA and follow up with results Dyslipidemia 04/03/2024 Assessment & Plan (04/03/2024 1:20 PM CDT): Borderline high LDL and total cholesterol; encourage low-fat high-fiber diet Continue to monitor CKD (chronic kidney disease) stage 4, GFR 15-29 ml/min 04/03/2024 Assessment & Plan (09/10/2024 1:16 PM ETL ANALYST): No concern sin this regard, follow with advertising sales consultant Will continue to monitor peripherally Assessment & Plan (06/10/2024 2:16 PM CDT): For Nephrology; most recent EGFR was below 30, stable [place] and lambda light chains are elevated with normal ratio; positive RAMU Will follow recommendations per Nephrology Assessment & Plan (04/03/2024 1:20 PM CDT): Patient continues to have labile EGFR, with symptoms going up and down Will refer to nephrology for evaluation continue surveillance Attention deficit hyperactiv ity disorder (ADHD), predominantly hyperactive type 02/21/2024 Assessment & Plan (09/10/2024 4:02 PM ETL ANALYST): Pt stable in this regard and is [...] 11/10/2022 Assessment & Plan (09/10/2024 1:43 PM ETL ANALYST): Stable, is following with counselor and is [...] able Assessment & Plan (11/10/2022 1:10 PM ETL ANALYST): Reviewed pharmacologic treatment options for management of [...] 03/02/2021 Assessment & Plan (09/10/2024 1:12 PM ETL ANALYST): Mildly elevated at time of presentation, suspect [...] 03/02/2021 Assessment & Plan (09/10/2024 1:39 PM ETL ANALYST): Mood much improved Continue Wellbutrin XL Assessment & Plan (06/10/2024 2:15 PM CDT): Stable, patient continues to have significant grief related to loss of ; patient has begun to engage in outside activities, including going to yarsani; starting to go to stores at time; continues to have days of significant grief Recommend continued engagement with social activities, including yarsani as well as groups such as group share Assessment & Plan (04/03/2024 1:19 PM CDT): Not well controlled, acutely worsened; patient's recently Continue bupropion 450 mg daily; patient to follow up with individual counseling Patient given resources for grief Assessment & Plan (11/10/2022 1:09 PM ETL ANALYST): No changes, buspirone added to current regimen. [...] Tobacco: Never Tobacco Cessation:Counseling Given: Not Answered [facility] [employer] Answer Date Recorded In the past 12 months has [employer]), [employer], or water [employer] threatened to shut off services in your [...] week 06/24/2024 How often do you attend [facility] or denominational services? More than 4 times per year 06/24/2024 Do you belong to any clubs o r organizations such as yarsani groups, unions, fraternal or athletic groups, or [...] staff should administer the PHQ-9) 1 06/24/2024 [facility] of Occupat ional [facility] - Occupational Stress Questionnaire Answer Date Recorded [...] any time in the past 12 m [facility], were you homeless or living in a half-way (including now)? No 06/24/2024 Comments No Sex and Gender Information Value Date Recorded Sex Assigned at Not on file Legal Sex Female 8:39 AM CDT Gender Identity Not on file Sexual Orientation Not on file Last Filed Vital Signs Vital Sign Reading Time Taken Comments Blood Pressure 146/90 09/10/2024 10:37 AM ETL ANALYST Pulse 72 09/10/2024 10:37 AM ETL ANALYST Temperature 36.6 C (97.8 F) 09/10/2024 10:37 AM ETL ANALYST Respiratory Rate 18 09/10/2024 10:37 AM ETL ANALYST Oxygen Saturation 99% 09/10/2024 10:37 AM ETL ANALYST Inhaled Oxygen Concentration - - Weight 68.5 kg (151 lb) 09/10/2024 10:37 AM ETL ANALYST Height 165.1 cm (5' 5 ) 09/10/2024 10:37 AM ETL ANALYST Body Mass Index 25.13 09/10/2024 10:37 AM ETL ANALYST Plan of Treatment Not on file Procedures Procedure Name Priority Date/Time Associated Diagnosis Comments SCAN - OTHER ORDERS 01/12/2025 2 :37 PM CDT CLINICAL PATHOLOGY REPORT Routine 11/19/2024 9:00 AM ETL ANALYST IMMUNOFIXATION, URINE Routine 11/19/2024 9:00 AM ETL ANALYST Chronic kidney disease, stage IV (severe) (HCC) UREA NITROGEN, URINE, 24 HOUR RESULT Routine 11/19/2024 9:00 AM ETL ANALYST Chronic kidney disease, stage IV (severe) (HCC) VOLUME AND PERIOD, URINE, 24 HOUR Routine 11/19/2024 9:00 AM ETL ANALYST Chronic kidney disease, stage IV (severe) (HCC) PROTEIN ELECTROPHORESIS, URINE, 24 HOUR RESULT Routine 11/19/2024 9:00 AM ETL ANALYST Chronic kidney disease, stage IV (severe) (HCC) UREA NITROGEN, URINE, 24 HOUR Routine 11/19/2024 9:00 AM ETL ANALYST Chronic kidney disease, stage IV (severe) (HCC) PROTEIN ELECTROPHORESIS, URINE, 24 HOUR WITH IMMUNOFIXATION Routine 11/19/2024 9:00 AM ETL ANALYST Chronic kidney disease, stage IV (severe) (HCC) CLINICAL PATHOLOGY REPORT Routine 11/12/2024 1:55 PM ETL ANALYST EGFR Routine 11/12/2024 1:55 PM ETL ANALYST Chronic kidney disease, stage IV (severe) (HCC) URINALYSIS, MICROSCOPIC ONLY Routine 11/12/2024 1:55 PM ETL ANALYST Chronic kidney disease, stage IV (severe) (HCC) C3 COMPLEMENT Routine 11/12/2024 1:55 PM ETL ANALYST Chronic kidney disease, stage IV (severe) (HCC) C4 COMPLEMENT Routine 11/12/2024 1:55 PM ETL ANALYST Chronic kidney disease, stage IV (severe) (HCC) COMPLEMENT, TOTAL Routine 11/12/2024 1:5 5 PM ETL ANALYST Chronic kidney disease, stage IV (severe) (HCC) CBC WITHOUT DIFFERENTIAL Routine 11/12/2024 1:55 PM ETL ANALYST Chronic kidney disease, stage IV (severe) (HCC) CREATINE KINASE (CK), TOTAL Routine 11/12/2024 1:55 PM ETL ANALYST Chronic kidney disease, stage IV (severe) (HCC) IMMUNOTYPING Routine 11/12/2024 1:55 PM ETL ANALYST Chronic kidney disease, stage IV (severe) (HCC) IMMUNOGLOBULIN FREE LIGHT CHAINS Routine 11/12/2024 1:55 PM ETL ANALYST Chronic kidney disease, stage IV (severe) (HCC) ERYTHROCYTE SEDIMENTATION RATE Routine 11/12/2024 1:55 PM ETL ANALYST Chronic kidney disease, stage IV (severe) (HCC) RENAL FUNCTION PANEL Routine 11/12/2024 1:55 PM ETL ANALYST Chronic kidney disease, stage IV (severe) (HCC) RAMU QUALITATIVE WITH REFLEX TO RAMU QUANTITATIVE Routine 11/12/2024 1:55 PM ETL ANALYST Chronic kidney disease, stage IV (severe) (HCC) PTH Routine 11/12/2024 1:55 PM ETL ANALYST Chronic kidney disease, stage IV (severe) (HCC) PROTEIN / CREATININE RATIO, URINE, RANDOM Routine 11/12/2024 1:55 PM ETL ANALYST Chronic kidney disease, stage IV (severe) (HCC) URINALYSIS AND REFLEX TO MICROSCOPIC AND CULTURE Routine 11/12/2024 1:55 PM ETL ANALYST Chronic kidney disease, stage IV (severe) (HCC) [...] * Clinical pathology report (11/19/2024 9:00 AM ETL ANALYST) Miscellaneous 11/19/2024 9:0 0 AM ETL ANALYST 11/20/2024 8:35 AM ETL ANALYST Narrative 11/20/2024 4:35 PM ETL ANALYST EPIC results best viewed via link to PDF [facility] Department of Pathology [address] [place] [id number] Final Report Note to Patients: This [...] the details. Patient Name: LIDIA MAHER Address: [address] [place] [address] Gender: F : 1960 (Age: 64) Service: Location: N : [id number] [facility] #: [id number] Patient Type: SPECIMEN Taken: 11/19/2024 Received: 11/20/2024 [...] determined by the Surgical Pathology Department at [facility] as part of an ongoing manager quality program and in compliance with federally mandated [...] characteristics determined by the Surgical Pathology Department [facility]. It has not been cleared or approved by the U. S. Food and Drug Administration. REPORT IMAGES AND SCANNED DOCUMENTS, IF INCLUDED, ONLY VIEWABLE IN PDF VERSION OF REPORTe o Shmuel Stewart MD LAB PATHOLOGY ORDERABLES Fin al Result * Volume and period, urine, 24 hour (11/19/2024 9:00 AM ETL ANALYST) Volume, ur 1,500 mL Period, Urine Collection 1,500 min NEW Urine 11/19/2024 9:00 AM ETL ANALYST 11/19/2024 11:45 PM ETL ANALYST Narrative [facility] - 11/20/2024 12:15 AM ETL ANALYST Fax results to Dr Shmuel Stewart [phone] Shmuel Stewart MD LAB URINE ORDERABLES Final R esult Performing Organization Address [facility] [place] [address] [place] [address] * Urea nitrogen, urine, 24 hour (11/19/2024 9:00 AM ETL ANALYST) Urea nitrogen, 24 hr ur 7 5 - 20 g/24H Urine 11/19/2024 9:00 AM ETL ANALYST 11/19/2024 11:45 PM ETL ANALYST Narrative NEW - 11/20/2024 12:25 AM ETL ANALYST Fax results to Dr Shmuel Stewart [phone] Shmuel Stewart MD LAB URINE ORDERABLES Final R esult Performing Organization Address City/[facility] Co de Phone Number [place] [address] Fr[address] Christina Department of [employer] [place], [place] [id number] * (ABNORMAL) Protein electrophoresis, urine, 24 hour (11/19/2024 9:00 AM ETL ANALYST) Pathologist [facility] Protein, ur, quant 175.7 mg/dL Comment:No reference range e stablished. Albumin, Ur 75.3 % [facility] Comment:No reference range e stablished. Alpha-1 globulin, Ur 7.8 % [facility] Comment:No reference range e stablished. Alpha-2 globulin, Ur 3.2 % [facility] Comment:No reference range e stablished. Beta globulin, Ur 6.4 % [facility] Comment:No reference range e stablished. Gamma globulin, Ur 7.3 % [facility] Comment:No reference range e stablished. UPEP interp See Cl Path Rpt [facility] Protein, 24 hr, ur 2,530(H) 1 - 150 mg/24H [facility] Urine 11/19/2024 9:00 AM ETL ANALYST 11/19/2024 11:45 PM ETL ANALYST Narrative NEW - 11/21/2024 12:21 PM ETL ANALYST Fax results to Dr Shmuel Stewart [phone] Shmuel Stewart MD LAB URINE ORDERABLES Final R esult Performing Organization Address [facility] Co de Phone Number [place] [address] [place] [address] * Immunofixation, urine (11/19/2024 9:00 AM ETL ANALYST) Pathologist [facility] Immunofixation , Ur See Cl Path Rpt Urine 11/19/2024 9:00 AM ETL ANALYST 11/19/2024 11:45 PM ETL ANALYST Shmuel Stewart MD LAB URINE ORDERABLES Final R [facility] Performing Organization Address City/[facility] Co de Phone Number [place] [address] Frida Christina [facility] [employer] [address] * Immunotyping, serum (11/12/2024 1:55 PM ETL ANALYST) Pathologist [facility] Immunofixation See Cl Path Rpt Blood 11/12/2024 1:55 PM ETL ANALYST 11/12/2024 9:14 PM ETL ANALYST Narrative [place] - 11/13/2024 12:12 PM ETL ANALYST Fax results to Dr Arielle Stewart [phone] Shmuel Stewart MD LAB BLOOD ORDERABLES Final R esult Performing Organization Address [facility] Co de Phone Number [place] [address] [place] [address] * (ABNORMAL) RAMU ab ql w/rflx to RAMU qn (11/12/2024 1:55 PM ETL ANALYST) RAMU Positive 1:320 Comment: Interpretive Data Normal [...] revised on 2020. Testing performed by: [facility], [address] [place] [address]., [id number] RAMU, quant 1:320 titer [place] Comment:Testing performed by : [facility], [address] [place] [address]., [id number] RAMU, interp Homogeneous (A) [place] Comment:Testing performed by : [facility], [address] [place] [address]., [id number] Blood 11/12/2024 1:55 PM ETL ANALYST 11/13/2024 10:13 AM ETL ANALYST Narrative [place] - 11/14/2024 1:07 PM ETL ANALYST Fax results to Dr Arielle Stewart [phone] Shmuel Stewart MD LAB BLOOD ORDERABLES Final R esult Performing Organization Address [facility] Co de Phone Number [place] [address] [place] [address] Department [place] [address] * Clinical pathology report (11/12/2024 1:55 PM ETL ANALYST) Miscellaneous 11/12/2024 1:5 5 PM ETL ANALYST 11/13/2024 8:31 AM ETL ANALYST Narrative 11/16/2024 8:50 AM ETL ANALYST EPIC results best viewed via link to PDF [facility] Department of Pathology [address] [place] [id number] Final Report Note to Patients: This report [...] the details. Patient Name: LIDIA MAHER Address: [address] [place] [address] Gender: F : 1960 (Age: 64) Service: Location: N : [id number] [facility] #: [id number] Patient Type: SPECIMEN Taken: 11/12/2024 Received: 11/13/2024 [...] determined by the Surgical Pathology Department at [facility] as part of an ongoing manager quality program and in compliance with federally mandated [...] characteristics determined by the Surgical Pathology Department [facility]. It has not been cleared or approved by the U. S. Food and Drug Administration. REPORT IMAGES AND SCANNED DOCUMENTS, IF INCLUDED, ONLY VIEWABLE IN PDF VERSION OF REPORTe o Shmuel Stewart MD LAB PATHOLOGY ORDERABLES Fin al Result * (ABNORMAL) eGFR (11/12/2024 1:55 PM ETL ANALYST) eGFR 27(L) >=60 mL/min/1. 73 m2 Comment: [...] last reviewed 2021. Blood 11/12/2024 1:55 PM ETL ANALYST 11/12/2024 11:28 PM ETL ANALYST us Shmuel Stewart MD LAB BLOOD ORDERABLES Final R esult Performing Organization Address City/[facility] Co de Phone Number KIMBERLYDAVID GUILLEN [address] [address] [facility] [employer] [address] * C4 complement (11/12/2024 1:55 PM ETL ANALYST) Pathologist [facility] Complement C4 31 10 - 40 mg/dL Blood 11/12/2024 1:55 PM ETL ANALYST 11/12/2024 11:28 PM ETL ANALYST Narrative NEW - 11/12/2024 11:36 PM ETL ANALYST Fax results to Dr Arielle Stewart [phone] Shmuel Stewart MD LAB BLOOD ORDERABLES Final R esult Performing Organization Address [facility] de Phone Number KIMBERLYDAVID GUILLEN [address] [address] [facility] [employer] [place] [address] * (ABNORMAL) Immunoglobulin free light chains (11/12/2024 1:55 PM ETL ANALYST) Pathologist [facility] [place]/Lambda ratio 1.50 0.26 - 1.65 [place] free light chain 6.61(H) 0.33 - 1.94 mg/dL NEW Comment: Interpretive Data The Nupur Ig [place] FLC assay procedure was used. Results from different manufacturers or methods may not be comparable. Serial testing should be performed using the same method. Lambda free light chain 4.28(H) 0.57 - 2.63 mg/dL NEW Comment: Interpretive Data The Nupur Ig [place]ambda FLC assay procedure was used. Results from different manufacturers or methods may not be comparable. Serial testing should be performed using the same method. Blood 11/12/2024 1:55 PM ETL ANALYST 11/12/2024 9:14 PM ETL ANALYST Narrative NEW - 11/13/2024 7:18 AM ETL ANALYST Fax results to Dr Arielle Stewart [phone] Shmuel Stewart MD LAB BLOOD ORDERABLES Final R esult Performing Organization Address [facility] Co de Phone Number KIMBERLYDAVID [address] [address] [facility] [employer] [place] [address] * (ABNORMAL) Urinalysis reflex to microscopic and culture Urine, clean voided (11/12/2024 1:55 PM ETL ANALYST) Color, ur Yellow Yellow Clarity, ur Turbid(A) Clear [facility] Specific gravity, ur 1.011 1.003 - 1.030 [facility] pH, urine 6.0 [facility] Comment: Interpretive Data U rine pH is affected by diet, medications, systemic acid-base disturbances, and renal tubular function. pH may affect urinary stone formation. For example, urine pH below 6.0 may help reduce the tendency for calcium phosphate stones and pH greater than 6.0 may reduce the tendency for uric acid stone formation. Source: [facility] Current Interpretive Data was last [...] Reflex to microscopic UA will be performed. [facility] Urine, clean voided 11/12/2024 1:55 PM ETL ANALYST 11/12/2024 9:14 PM ETL ANALYST Narrative [facility] - 11/12/2024 9:32 PM ETL ANALYST Fax results to Dr Arielle Stewart [phone] Shmuel Stewart MD LAB MICROBIOLOGY - GENERAL O RDERABLES Final Result [facility] [address] [address] Department [place] [address] * (ABNORMAL) Protein / creatinine ratio, urine, random (11/12/2024 1:55 PM ETL ANALYST) Protein, ur, quant 197.6 mg/dL Comment: Interpretive Data No reference range established. Current interpretive data was last revised 2019. Creatinine Ur 44.9 mg/dL [facility] Comment: Interpretive Data No reference range established. Current interpretive data was last revised 2019. Protein/creatinin e ratio 4,400.9(H ) 0.0 - 180.0 mg/g CR [facility] Urine 11/12/2024 1:55 PM ETL ANALYST 11/12/2024 9:14 PM ETL ANALYST Narrative [facility] - 11/12/2024 10:10 PM ETL ANALYST Fax results to Dr Arielle Stewart [phone] Shmuel Stewart MD LAB URINE ORDERABLES Final R [facility] Performing Organization Address City/[facility] [place] [address] Fr[address] [facility] [employer] [place] [address] * (ABNORMAL) Urinalysis, microscopic only (11/12/2024 1:55 PM ETL ANALYST) WBC, ur 0-5 0 - 5 /HPF RBC, ur 0-2 0 - 2 /HPF [facility] Epithelial cells, squamous, ur 1-5 0 - 5 /HPF [facility] Mucous, ur Present(A) [facility] Culture Reflex Comment Reflex conditions for urine culture (WBC >10) not met. [facility] Urine, clean voided 11/12/2024 1:55 PM ETL ANALYST 11/12/2024 9:14 PM ETL ANALYST Shmuel Stewart MD LAB URINE ORDERABLES Final [facility] Performing Organization Address City/[facility] [place] de [place] Number [place] [address] Fr[address] [facility] [employer] [place], [place] [id number] * Erythrocyte sedimentation rate (11/12/2024 1:55 PM ETL ANALYST) Erythrocyte sedimentation rate 15 1 - 30 mm/hr Blood Venous blood specimen / Unknown 11/12/2024 1:55 PM ETL ANALYST 11/12/2024 9:14 PM ETL ANALYST Narrative [facility] - 11/12/2024 10:00 PM ETL ANALYST Fax results to Dr Arielle Stewart [phone] Shmuel Stewart MD LAB BLOOD ORDERABLES Final R esult Performing Organization Address City/[facility]/ZIP Co de Phone Number [place] [address] [place] [address] * (ABNORMAL) CBC without differential (11/12/2024 1:55 PM ETL ANALYST) Pathologist [facility] WBC 8.2 3.8 - 9.9 K/cumm Hgb 12.3 11.9 - 15.5 g/dL [facility] Hct 39.7 35.6 - 45.5 % [facility] Plt 356 150 - 400 K/cumm [facility] MPV 10.4 9.1 - 12.3 fL [facility] RBC 3.99 3.90 - 5.20 M/cumm [facility] MCV 99.5(H) 81.3 - 96.4 fL [facility] MCH 30.8 27.1 - 33.3 pg [facility] MCHC 31.0(L) 32.3 - 35.7 g/dL [facility] RDW CV 13.2 11.1 - 14.9 % [facility] RDW SD 48.6(H) 35.7 - 48.1 fL [facility] CH NRBC abs 0.00 0.00 - 0.01 K/cumm [facility] CH Blood Venous blood specimen / Unknown 11/12/2024 1:55 PM ETL ANALYST 11/12/2024 9:14 PM ETL ANALYST Narrative [facility] - 11/12/2024 9:42 PM ETL ANALYST Fax results to Dr Arielle Stewart [phone] Shmuel Stewart MD LAB BLOOD ORDERABLES Final R esult [place] [address] [address] Christina Department [employer] [place], [place] [id number] * Complement, total (11/12/2024 1:55 PM ETL ANALYST) Pathologist [facility] Complement hemolytic 64 30 - 75 units/mL Nielsen ref Lab Comment: Test Performed by: [facility] [address] [place] [address] Money Counter: Ilir Prado Ph.D.; IA# [id number] Blood Venous blood specimen / Unknown 11/12/2024 1:55 PM ETL ANALYST 11/12/2024 9:14 PM ETL ANALYST Narrative [facility] - 11/17/2024 1:19 PM ETL ANALYST Fax results to Dr Arielle Stewart [phone] Shmuel Stewart MD LAB BLOOD ORDERABLES Final R esult Performing Organization Address City/[facility]/ZIP Co de Phone Number [place] [address] Frida Christina Department [employer] [place] [address] Nielsen ref Lab * C3 complement (11/12/2024 1:55 PM ETL ANALYST) Pathologist [facility] Complement C3 124 90 - 180 mg/dL Blood Venous blood specimen / Unknown 11/12/2024 1:55 PM ETL ANALYST 11/12/2024 11:28 PM ETL ANALYST Narrative [facility] - 11/12/2024 11:36 PM ETL ANALYST Fax results to Dr Arielle Stewart [phone] Shmuel Stewart MD LAB BLOOD ORDERABLES Final R esult Performing Organization Address [facility] Co de Phone Number [place] [address] Frida Christina [place] [address] * (ABNORMAL) PTH (11/12/2024 1:55 PM ETL ANALYST) Pathologist [facility] PTH 81(H) 15 - 65 pg/mL Blood Venous blood specimen / Unknown 11/12/2024 1:55 PM ETL ANALYST 11/12/2024 11:28 PM ETL ANALYST Narrative [facility] - 11/12/2024 11:29 PM ETL ANALYST Fax results to Dr Arielle Stewart [phone] Shmuel Stewart MD LAB BLOOD ORDERABLES Final R esult Performing Organization Address City/[facility] Co de Phone Number [place] [address] Frida Christina Department [employer] [place] [address] * Creatine kinase (CK), total (11/12/2024 1:55 PM ETL ANALYST) CK 77 30 - 200 Units/L Blood Venous blood specimen / Unknown 11/12/2024 1:55 PM ETL ANALYST 11/12/2024 11:28 PM ETL ANALYST Narrative CERNER CH - 11/12/2024 11:43 PM ETL ANALYST Fax results to Dr Arielle Stewart [phone] Shmuel Stewart MD LAB BLOOD ORDERABLES Final R esult [facility] [address] [address] Department [place] [address] * (ABNORMAL) Renal function panel (11/12/2024 1:55 PM ETL ANALYST) Sodium 138 135 - 145 mmol/L Potassium, pl 4.7 3.3 - 4.9 mmol/L CERNER Chloride 102 97 - 110 mmol/L CERNER CH CO2 24 22 - 32 mmol/L CERNER CH Anion gap 12 2 - 15 mmol/L CERNER BUN 36(H) 6 - 25 mg/dL CERNER Creatinine 2.06(H) 0.60 - 1.10 mg/dL CERNER Glucose 78 70 - 199 mg/dL [facility] Comment: Interpretive Data Fasting glucose >/= 126 [...] Albumin 3.9 3.5 - 5.0 g/dL CERNER Blood Venous blood specimen / Unknown 11/12/2024 1:55 PM ETL ANALYST 11/12/2024 11:28 PM ETL ANALYST Narrative [place] - 11/12/2024 11:29 PM ETL ANALYST Fax results to Dr Arielle Stewart [phone] Shmuel Stewart MD LAB BLOOD ORDERABLES Final R esult [place] [address] [facility] Department [place] [address] * SCREENING MAMMOGRAM BILATERAL W BRENDA (02/16/2022 [...] Stool DNA - Cologuard Negative Not Applicable [employer] (CLIA #:[id number]) Comment: A negative result indicates a low [...] screened with both Cologuard and colonoscopy. (Radha Brody et al, N Engl J Med 2014;370(14):4626-5037) The normal value (reference range) for this assay is negative. COLOGUARD RE-SCREENING RECOMMENDATION: Periodic routine colorectal cancer screening is an important part of preventive healthcare for asymptomatic persons at average risk for colorectal cancer. Following a negative Cologuard result, the [place] Cancer Society and U.S. Multi-Society Task Force screening guidelines recommend a Cologuard re-screening interval of 3 years. References: [place] Cancer Society (ACS). Colorectal cancer prevention and early detection. [place], [place]: [place] Cancer Society; [updated 2015Feb 12]. https://www.cancer.org/cancer/uwtee-vafpyb-xpcinu/iqnjtfmax-ihfubvmzm-jbsptnp/ac s-rec ommendations.html. Accessed June 21, 2018; Mohinder DK, Renetta LOMAX, Keshawn CortezK, Colorectal Cancer Screening: Recommendations for Physicians and Patients from the U.S. Multi-Society Task Force on Colorectal Cancer Screening, Am J Gastroenterology 2017; 112:4844-0673. TEST TYPE: Composite algorithmic analysis of stool [...] interval of every 3 years by the [place] Cancer Society and U.S. Multi-Society Task Force. [...] can be accessed at the following location: www.Transbiomed.TipRanks/results. Additional description of the Cologuard test process, warnings and precautions can be found at www.cologuardtest.com. Rx only. Stool 03/09/2021 1:30 PM CDT 03/10/2021 4:58 PM CDT Jamaal Solorio MD LAB BODY FLUIDS AND STOOL S ORDERABLES Final Result Performing Organization Address City/[facility] Co de Phone Number [place] (CLIA #:[id number]) [place] [address] [place] [place] [address] * Hepatitis C antibody (02/04/2021 3:49 PM [...] L ORDERABLES Final Result Performing Organization Address City/[facility] [place] Number [place] [address] [address] Department [place] [address] from Last 3 Months or Most Recently Relevant to Health Maintenance Insurance CIGNA CIGNA Care Teams Paraffin Plant Sweater Operator Relationship Specialty Start Date End Date [place] [address] PCP - General Family Medicine 01/11/21
[2025-02-06 07:32] LABS: Mean Platelet Volume 10.1 fl (7.4-10.4); Platelet Count Result 301 k/mm3 (150-375)
[2025-02-06 07:37] VITALS: BP 183/91; PULSE 118; RESP 16; TEMP 36.2; O2SAT 99
[2025-02-06 07:51] VITALS: BP 173/80; PULSE 75
[2025-02-06 08:05] LABS: Prothrombin Time 13.9 Seconds (11.1-14.7)
--- NOTE | 2025-02-06 08:12 | SUR.PREOP ---
[address] ABOUT REPEAT BLOOD PRESSURE
[2025-02-06 08:30] VITALS: BP 169/75; PULSE 72
--- NOTE | 2025-02-06 08:58 | SUR.PREOP ---
0840 PROCEDURE CANCELLED PER RADIOLOGY DUE TO ELEVATED BLOOD PRESSURE. PT INSTRUCTED TO FOLLOW UP WITH HER PRIMARY MD OR DR. HAMPTON
== END 2025-02-06 07:03 | disposition home or self-care (01) ==
LOC: ANHSURGERY 07:03
PROVIDERS: Radiology Diagnostic Radiology; PCP Hospitalist; Visit Provider Internal Medicine Nephrology
PROC: (CPT 76942; principal; 2025-02-06 09:30)
DX: Z01.818 Encounter for other preprocedural examination (principal); R76.0 Raised antibody titer; N18.4 Chronic kidney disease, stage 4 (severe); R80.1 Persistent proteinuria, unspecified
CPT/HCPCS: 36415; 85049; 85610

== ENCOUNTER 2025-04-09 12:28 | Outpatient (CLI) | payer OTHER, SELFPAY ==
--- OUTSIDE RECORDS SUMMARY | 2025-04-09 12:50 | XMS_ITS | Clinical Summary ---
Author Organization [facility] Facility Address [address] [address] Care Team Providers Care Production Repairer Name Role Phone Jamaal Garcia MD Primary Care Provider [phone] Allergies Active Allergy Reactions Criticality Noted Date [...] age to complete this topic Care Teams Production Repairer Relationship Specialty Start Date End [place] [place] [address] PCP - General Family Medicine 8/29/22
--- OUTSIDE RECORDS SUMMARY | 2025-04-09 12:50 | XMS_ITS | Clinical Summary ---
Author Organization [facility] [address] [facility] Address [address] ed[place] [address] Care Team Providers Care Senior Report Developer Name Role Phone Jamaal Solorio MD Primary Care Provider [phone] Allergies Active Allergy Reactions Criticality Noted Date Comments Hydrochlorothiazide Nausea And Vomiting Medium 016 Hydrocodone-Acetaminophen Other (See comments),Vomiting Medium 04/03/2019 Sulfa (Sulfonamide Antibiotics) Nausea only,Vomiting High 02/04/2021 Medications carvediloL (COREG) 6.25 mg tablet Take 1 tablet (6.25 mg total) by mouth 2 (two) times a day with meals 60 tablet 11 04/23/20 24 025 Active traZODone (DESYREL) 100 mg tabletIndicati ons:Generalize d anxiety disorder TAKE 1 TABLET BY MOUTH AT BEDTIME NEEDED FOR SLEEP 90 tablet 2 01/09/20 25 Active buPROPion XL (WELLBUTRIN XL) 150 mg 24 hr tablet TAKE 3 TABLETS BY MOUTH EVERY MORNING 270 tablet 03/12/20 25 Active lisdexamfetami ne (VYVANSE) 30 mg capsule Take 1 capsule (30 mg total) by mouth every morning 30 capsule 03/17/20 25 025 Active buPROPion XL (WELLBUTRIN XL) 150 mg 24 hr tablet TAKE 3 TABLETS BY MOUTH EVERY MORNING 270 tablet 01/08/20 25 025 Discontinued lisdexamfetami ne (VYVANSE) 30 mg capsule Take 1 capsule (30 mg total) by mouth every morning 30 capsule 03/13/20 25 025 Discontinued(Re order) Active Problems Problem Noted Date Diagnosed Date UTI symptoms 09/10/2024 Assessment & Plan (09/10/2024 1:17 PM ASSISTED LIVING COORDINATOR): Endorsing dysuria, low concern for pyelo at this time Will order UA and follow up with results Dyslipidemia 04/03/2024 Assessment & Plan (04/03/2024 1:20 PM CDT): Borderline high LDL and total cholesterol; encourage low-fat high-fiber diet Continue to monitor CKD (chronic kidney disease) stage 4, GFR 15-29 ml/min 04/03/2024 Assessment & Plan (09/10/2024 1:16 PM ASSISTED LIVING COORDINATOR): No concern sin this regard, follow with brand ambassador Will continue to monitor peripherally Assessment & Plan (06/10/2024 2:16 PM CDT): For Nephrology; most recent EGFR was below 30, stable [place] and lambda light chains are elevated with normal ratio; positive RAMU Will follow recommendations per Nephrology Assessment & Plan (04/03/2024 1:20 PM CDT): Patient continues to have labile EGFR, with symptoms going up and down Will refer to nephrology for evaluation continue surveillance Attention deficit hyperactiv ity disorder (ADHD), predominantly hyperactive type 02/21/2024 Assessment & Plan (09/10/2024 4:02 PM ASSISTED LIVING COORDINATOR): Pt stable in this regard and is [...] 11/10/2022 Assessment & Plan (09/10/2024 1:43 PM ASSISTED LIVING COORDINATOR): Stable, is following with counselor and is [...] able Assessment & Plan (11/10/2022 1:10 PM ASSISTED LIVING COORDINATOR): Reviewed pharmacologic treatment options for management of [...] 03/02/2021 Assessment & Plan (09/10/2024 1:12 PM ASSISTED LIVING COORDINATOR): Mildly elevated at time of presentation, suspect [...] 03/02/2021 Assessment & Plan (09/10/2024 1:39 PM ASSISTED LIVING COORDINATOR): Mood much improved Continue Wellbutrin XL Assessment & Plan (06/10/2024 2:15 PM CDT): Stable, patient continues to have significant grief related to loss of ; patient has begun to engage in outside activities, including going to latter day; starting to go to stores at time; continues to have days of significant grief Recommend continued engagement with social activities, including latter day as well as groups such as group share Assessment & Plan (04/03/2024 1:19 PM CDT): Not well controlled, acutely worsened; patient's recently Continue bupropion 450 mg daily; patient to follow up with individual counseling Patient given resources for grief Assessment & Plan (11/10/2022 1:09 PM ASSISTED LIVING COORDINATOR): No changes, buspirone added to current regimen. [...] Encounters Date Type Department Care Team Description 03/23/2025 Orders Only [facility] [address] [place] [address] Jamaal Solorio MD BHAVANI (generalized anxiety disorder) (Primary Dx); Moderate episode of recurrent major depressive disorder (HCC); Grief 01/12/2025 Orders Only [facility] Health Information Management [address] [place] [address] Scanning, Provider from Last 3 Months Immunizations Immunization Administration [...] - 10/21/1996 ORAL SURGERY 07/22/2024 - 08/21/2024 [facility] [place] - bottom jaw bones removed Medical History [...] Tobacco: Never Tobacco Cessation:Counseling Given: Not Answered [facility] Utilities Answer Date Recorded In the past 12 months has th e [employer], gas, oil, or water company threatened to shut off services in your [...] often do you attend chur ch or hoahaoism services? More than 4 times per year 06/24/2024 Do you belong to any clubs o r organizations such as latter day groups, unions, fraternal or athletic groups, or [...] 1 06/24/2024 [facility] - Occupational Stress Questionnaire Answer Date [...] time in the past 12 m [facility], were you homeless or living in [...] Comments Blood Pressure 146/90 09/10/2024 10:37 AM ASSISTED LIVING COORDINATOR Pulse 72 09/10/2024 10:37 AM ASSISTED LIVING COORDINATOR Temperature 36.6 C (97.8 F) 09/10/2024 10:37 AM ASSISTED LIVING COORDINATOR Respiratory Rate 18 09/10/2024 10:37 AM ASSISTED LIVING COORDINATOR Oxygen Saturation 99% 09/10/2024 10:37 AM ASSISTED LIVING COORDINATOR Inhaled Oxygen Concentration - - Weight 68.5 kg (151 lb) 09/10/2024 10:37 AM ASSISTED LIVING COORDINATOR Height 165.1 cm (5' 5) 09/10/2024 10:37 AM ASSISTED LIVING COORDINATOR Body Mass Index 25.13 09/10/2024 10:37 AM ASSISTED LIVING COORDINATOR Plan of Treatment Health Maintenance Due Date [...] Diagnosis Comments SCAN - OTHER ORDERS 01/12/2025 2:37 PM CDT SCREENING MAMMOGRAM BILATERAL W BRENDA Schedule Routine, [...] CDT) us Provider Scanning Final Result * SCREENING MAMMOGRAM BILATERAL W BRENDA (02/16/2022 [...] findings in either breast. Jamaal Solorio MD [facility] MAMMO PROCEDURES Lady l Result * Stool DNA - Cologuard (03/09/2021 1:30 PM CDT) Stool DNA - Cologuard Negative Not Applicable [employer] (CLIA #:[id number]) Comment: A negative result indicates a low [...] (Radha Perez al, N Engl J Med 2014;370(14):3580-6937) The normal value (reference range) for this assay is negative. COLOGUARD RE-SCREENING RECOMMENDATION: Periodic routine colorectal cancer screening is an important part of preventive healthcare for asymptomatic persons at average risk for colorectal cancer. Following a negative Cologuard result, the [place] Cancer Society and U.S. Multi-Society Task Force screening guidelines recommend a Cologuard re-screening interval of 3 years. References: [place] Cancer Society (ACS). Colorectal cancer prevention and early detection. [place], [place]: [place] Cancer Society; [updated 2015Feb 12]. https://www.cancer.org/cancer/pxwyn-rxalln-wwoqke/llihzrpju-ppeaftnih-vfaiafs/ac s-rec ommendations.html. Accessed June 21, 2018; Mohinder LAWRENCE, Renetta LOMAX, Keshawn CortezK, Colorectal Cancer Screening: Recommendations for Physicians and Patients from the U.S. Multi-Society Task Force on Colorectal Cancer Screening, Am J Gastroenterology 2017; 112:1655-6719. TEST TYPE: Composite algorithmic analysis of stool [...] interval of every 3 years by the [place] Cancer Society and U.S. Multi-Society Task Force. [...] can be accessed at the following location: www.Study2gether.com/results. Additional description of the Cologuard test process, warnings and precautions can be found at www.cologuardtest.com. Rx only. Stool 03/09/2021 1:30 PM CDT 03/10/2021 4:58 PM CDT Jamaal Solorio MD LAB BODY FLUIDS AND STOOL S ORDERABLES Final Result [employer] (CLIA #:[id number]) [place] [address] [place] [address] * Hepatitis C antibody (02/04/2021 3:49 PM [...] - GENERA [place] [address] [address] Department [place] [address] from Last 3 Months or Most Recently Relevant to Health Maintenance Insurance CIGNA CIGNA Care Teams Senior Report Developer Relationship Specialty Start Date End [place] [address] PCP - General Family Medicine 01/11/21
--- OUTSIDE RECORDS SUMMARY | 2025-04-09 12:50 | XMS_ITS | Clinical Summary ---
Author Organization [facility] Address [address] [address] Care Team Providers Care Marine Engineering Teacher Name Role Phone Unavailable Primary Care Provider Unavailabl e Source Comments [facility],non-owned Affiliates and Associated Physician Practices is amultiple site organization consisting of ambulatory clinics and hospital sitesin [place], [place], [place] and [place]. This disclosure is being madepursuant to the Care Everywhere program and may not contain all information available regarding this patient. Last updated 18.[facility] Allergies Active Allergy Reactions Criticality Noted Date Comments Hydrochlorothiazide Nausea and/or Vomiting Medium 11/0 10/2015 Sulfa Drugs Vomiting 04/03/2019 Hydrocodone-Acetaminophen Psychiatric,Vomiting Medium 04/03/2019 Medications * Be aware that medications may not be up to date on this document. Alwaysverify current medications with the patient. fluticasone propionate (FLONASE) 50 MCG/ACT nasal spray [place] 2 sprays into each nostril once daily [...] Comments Blood Pressure 128/78 10/04/2020 2:44 PM LOG LOADER HELPER Pulse 88 10/04/2020 2:44 PM LOG LOADER HELPER Temperature 36.8 C (98.2 F) 10/04/2020 2:44 PM LOG LOADER HELPER Respiratory Rate 20 10/04/2020 2:44 PM LOG LOADER HELPER Oxygen Saturation 97% 11/01/2019 4:10 PM LOG LOADER HELPER Inhaled Oxygen Concentration - - Weight 86.2 kg (190 lb) 11/01/2019 4:10 PM LOG LOADER HELPER Height 165.1 cm (5' 5) 11/01/2019 4:10 PM LOG LOADER HELPER Body Mass Index 31.62 11/01/2019 4:10 PM LOG LOADER HELPER Plan of Treatment Health Maintenance Due Date [...]
--- OUTSIDE RECORDS SUMMARY | 2025-04-09 12:50 | XMS_ITS | Referral Summary ---
Author Organization [facility] [address] [facility] Address [address] [place] [address] Care Team Providers Care Web Applications Developer Name Role Phone Jamaal Solorio MD Primary Care Provider [phone] Encounters Date Type Department Care Team Description 03/23/2025 Orders Only [facility] [address] [place] [address] Jamaal Solorio MD BHAVANI (generalized anxiety disorder) (Primary Dx); Moderate episode of recurrent major depressive disorder (HCC); Grief 01/12/2025 Orders Only [facility] Health Information Management [address] [place] [address] Scanning, Provider from Last 3 Months Allergies Active Allergy [...] 09/10/2024 Assessment & Plan (09/10/2024 1:17 PM CAR CONDITIONER): Endorsing dysuria, low concern for pyelo at this time Will order UA and follow up with results Dyslipidemia 04/03/2024 Assessment & Plan (04/03/2024 1:20 PM CDT): Borderline high LDL and total cholesterol; encourage low-fat high-fiber diet Continue to monitor CKD (chronic kidney disease) stage 4, GFR 15-29 ml/min 04/03/2024 Assessment & Plan (09/10/2024 1:16 PM CAR CONDITIONER): No concern sin this regard, follow with manager relationship Will continue to monitor peripherally Assessment & Plan (06/10/2024 2:16 PM CDT): For Nephrology; most recent EGFR was below 30, stable [place] and lambda light chains are elevated with normal ratio; positive RAMU Will follow recommendations per Nephrology Assessment & Plan (04/03/2024 1:20 PM CDT): Patient continues to have labile EGFR, with symptoms going up and down Will refer to nephrology for evaluation continue surveillance Attention deficit hyperactiv ity disorder (ADHD), predominantly hyperactive type 02/21/2024 Assessment & Plan (09/10/2024 4:02 PM CAR CONDITIONER): Pt stable in this regard and is [...] 11/10/2022 Assessment & Plan (09/10/2024 1:43 PM CAR CONDITIONER): Stable, is following with counselor and is [...] able Assessment & Plan (11/10/2022 1:10 PM CAR CONDITIONER): Reviewed pharmacologic treatment options for management of [...] 03/02/2021 Assessment & Plan (09/10/2024 1:12 PM CAR CONDITIONER): Mildly elevated at time of presentation, suspect [...] 03/02/2021 Assessment & Plan (09/10/2024 1:39 PM CAR CONDITIONER): Mood much improved Continue Wellbutrin XL Assessment & Plan (06/10/2024 2:15 PM CDT): Stable, patient continues to have significant grief related to loss of ; patient has begun to engage in outside activities, including going to rastafari; starting to go to stores at time; continues to have days of significant grief Recommend continued engagement with social activities, including rastafari as well as groups such as group share Assessment & Plan (04/03/2024 1:19 PM CDT): Not well controlled, acutely worsened; patient's recently Continue bupropion 450 mg daily; patient to follow up with individual counseling Patient given resources for grief Assessment & Plan (11/10/2022 1:09 PM CAR CONDITIONER): No changes, buspirone added to current regimen. [...] Tobacco: Never Tobacco Cessation:Counseling Given: Not Answered [facility] Utilities Answer Date Recorded In the past 12 months has e [employer], oil, or water [employer] threatened to shut off services in your [...] often do you attend chur ch or caodaism services? More than 4 times per year 06/24/2024 Do you belong to any clubs o r organizations such as rastafari groups, unions, fraternal or athletic groups, or [...] staff should administer the PHQ-9) 1 06/24/2024 [facility] - [...] in the past 12 m [facility], were you homeless or living in a alf (including now)? No 06/24/2024 Comments No Sex and Gender Information Value Date Recorded Sex Assigned at Not on file Legal Sex Female 8:39 AM CDT Gender Identity Not on file Sexual Orientation Not on file Last Filed Vital Signs Vital Sign Reading Time Taken Comments Blood Pressure 146/90 09/10/2024 10:37 AM CAR CONDITIONER Pulse 72 09/10/2024 10:37 AM CAR CONDITIONER Temperature 36.6 C (97.8 F) 09/10/2024 10:37 AM CAR CONDITIONER Respiratory Rate 18 09/10/2024 10:37 AM CAR CONDITIONER Oxygen Saturation 99% 09/10/2024 10:37 AM CAR CONDITIONER Inhaled Oxygen Concentration - - Weight 68.5 kg (151 lb) 09/10/2024 10:37 AM CAR CONDITIONER Height 165.1 cm (5' 5) 09/10/2024 10:37 AM CAR CONDITIONER Body Mass Index 25.13 09/10/2024 10:37 AM CAR CONDITIONER Plan of Treatment Not on file Procedures [...] findings in either breast. Jamaal Solorio MD [facility] MAMMO PROCEDURES Lady l Result * Stool DNA - Cologuard (03/09/2021 1:30 PM CDT) Stool DNA - Cologuard Negative Not Applicable [employer] (CLIA #:[id number]) Comment: A negative result indicates a low [...] Brody et al, N Engl J Med 2014;370(14):7212-2750) The normal value (reference range) for this assay is negative. COLOGUARD RE-SCREENING RECOMMENDATION: Periodic routine colorectal cancer screening is an important part of preventive healthcare for asymptomatic persons at average risk for colorectal cancer. Following a negative Cologuard result, the [place] Of [place] Cancer Society and U.S. Multi-Society Task Force screening guidelines recommend a Cologuard re-screening interval of 3 years. References: [place] Cancer Society (ACS). Colorectal cancer prevention and early detection. [place], [place]: [place] Cancer Society; [updated 2015Feb 12]. https://www.cancer.org/cancer/zhrsk-jyzjov-jgocwk/icxtkzsxb-imtnuaqfm-ddxqbut/ac s-rec ommendations.html. Accessed June 21, 2018; Mohinder LAWRENCE, Renetta CR, Keshawn CortezK, Colorectal Cancer Screening: Recommendations for Physicians and Patients from the U.S. Multi-Society Task Force on Colorectal Cancer Screening, Am J Gastroenterology 2017; 112:4919-2801. TEST TYPE: Composite algorithmic analysis of stool [...] interval of every 3 years by the [place] Cancer Society and U.S. Multi-Society Task Force. [...] can be accessed at the following location: www.Mantex/results. Additional description of the Cologuard test process, warnings and precautions can be found at www.cologuardtest.com. Rx only. Stool 03/09/2021 1:30 PM CDT 03/10/2021 4:58 PM CDT Jamaal Solorio MD LAB BODY FLUIDS AND STOOL S ORDERABLES Final Result [employer] (CLIA #:[id number]) [place] [address] [place] [address] * Hepatitis C antibody (02/04/2021 3:49 PM [...] - GENERA L ORDERAB[place] [address] [place] Department [place] [address] from Last 3 Months or Most Recently Relevant to Health Maintenance Insurance CIGNA CIGNA Care Teams Web Applications Developer Relationship Specialty Start Date End Date Jamaal Solorio MD [address] [address] PCP - General Family Medicine 01/11/21
[2025-04-09 12:57] LABS: Hematocrit 34.5 % (37.0-47.0); Hemoglobin 10.9 g/dL (12.0-15.0); Mean Corpuscular HGB Conc 31.6 g/dl (32-36); Mean Corpuscular Hemoglobin 30.7 pg (26-34); Mean Corpuscular Volume 97.2 fl (80-100); Mean Platelet Volume 9.5 fl (7.4-10.4); Platelet Count Result 303 k/mm3 (150-375); Red Blood Count 3.55 M/mm3 (4.2-5.4); Red Cell Distribution Width 13.9 % (11.5-14.5); White Blood Count 7.3 K/mm3 (4.5-10.0)
[2025-04-09 13:07] LABS: Creatinine Urine 71.1 mg/dL
[2025-04-09 13:07] LABS: Albumin Level 3.9 g/dL (3.5-5.1); Anion Gap 7 mmol/L (4-12); Blood Urea Nitrogen 39 mg/dL (7-17); Calcium 8.9 mg/dL (8.4-10.2); Carbon Dioxide 26 mmol/L (22-30); Chloride 108 mmol/L (98-107); Estimated Glomerular Filt Rate 23; Glucose 94 mg/dL (65-110); Phosphorus 5.2 mg/dL (2.5-4.5); Potassium 4.2 mmol/L (3.4-5.0); Sodium 141 mmol/L (137-145)
[2025-04-09 13:13] LABS: Total Protein Urine Random 367 mg/dL; Ur Ttl Prot Creatinine Ratio 5.16 mg/mg (0-0.20)
[2025-04-09 13:18] LABS: Parathyroid Intact 127.3 pg/mL (14.5-75.2)
== END 2025-04-09 12:29 | disposition home or self-care (01) ==
LOC: ANHLAB 12:29
PROVIDERS: PCP Hospitalist; Visit Provider Internal Medicine Nephrology
DX: N18.4 Chronic kidney disease, stage 4 (severe) (principal)
CPT/HCPCS: 36415; 80069; 82570; 83970; 84156; 85027

== ENCOUNTER 2025-06-19 14:01 | Outpatient (CLI) | payer OTHER, SELFPAY ==
--- OUTSIDE RECORDS SUMMARY | 2025-06-19 14:05 | XMS_ITS | Clinical Summary ---
Author Organization [facility] Address [address] [place] [address] Care Team Providers Care Radiology Teacher Name Role Phone Jamaal Garcia MD Primary Care Provider [phone] Allergies Active Allergy Reactions Criticality Noted Date [...] Colorectal Cancer Screening: Sigmoidoscopy 2010 Influenza Vaccine (#1) 2025 , 08/22/2023, 08/22/2022 Hepatitis B Vaccine Aged Out No longe r eligible based on patient's age to complete this topic Care Teams Radiology Teacher Relationship Specialty Start Date End [place] [address] PCP - General Family Medicine 06/19/22
--- OUTSIDE RECORDS SUMMARY | 2025-06-19 14:05 | XMS_ITS | Clinical Summary ---
Author Organization [facility] Address [address] [place] [address] Care Team Providers Care Counter Professional Name Role Phone Unavailable Primary Care Provider Unavailabl e Source Comments [facility],non-owned Affiliates and Associated Physician Practices is amultiple site organization consisting of ambulatory clinics and hospital sitesin [place], [place], [place] and [place]. This disclosure is being madepursuant to the Care Everywhere program and may not contain all information available regarding this patient. Last updated 18.[facility] Allergies Active Allergy Reactions Criticality Noted Date Comments Hydrochlorothiazide Nausea and/or Vomiting Medium 11/0 10/2015 Sulfa Drugs Vomiting 04/03/2019 Hydrocodone-Acetaminophen Psychiatric,Vomiting Medium 04/03/2019 Medications * Be aware that medications may not be up to date on this document. Alwaysverify current medications with the patient. fluticasone propionate (FLONASE) 50 MCG/ACT nasal spray [place] 2 sprays into each nostril once daily [...] Comments Blood Pressure 128/78 10/04/2020 2:44 PM [employer] Pulse 88 10/04/2020 2:44 PM [employer] Temperature 36.8 C (98.2 F) 10/04/2020 2:44 PM [employer] Respiratory Rate 20 10/04/2020 2:44 PM [employer] Oxygen Saturation 97% 11/01/2019 4:10 PM [employer] Inhaled Oxygen Concentration - - Weight 86.2 kg (190 lb) 11/01/2019 4:10 PM [employer] Height 165.1 cm (5' 5) 11/01/2019 4:10 PM [employer] Body Mass Index 31.62 11/01/2019 4:10 PM [employer] Plan of Treatment Health Maintenance Due [...] season) 2024 DEPRESSION SCREENING 10/22/2024 INFLUENZA VACCINE (#1) 2025 Respiratory Syncytial Virus (RSV) Vaccine Pt: [...]
--- OUTSIDE RECORDS SUMMARY | 2025-06-19 14:06 | XMS_ITS | Clinical Summary ---
Author Organization [facility] Address [address] [place] [address] Care Team Providers Care Network Support Administrator Name Role Phone Jamaal Solorio MD Primary Care Provider [phone] Allergies Active Allergy Reactions Criticality Noted Date Comments Hydrochlorothiazide Nausea And Vomiting Medium 016 Hydrocodone-Acetaminophen Other (See comments),Vomiting Medium 04/03/2019 Sulfa (Sulfonamide Antibiotics) Nausea only,Vomiting High 02/04/2021 Medications traZODone (DESYREL) 100 mg tabletIndicati ons:Generalize d anxiety disorder TAKE 1 TABLET BY MOUTH AT BEDTIME NEEDED FOR SLEEP 90 tablet 2 01/09/20 25 Active labetaloL (NORMODYNE,TRA NDATE) 200 mg tablet Take 1 tablet (200 mg total) by mouth every 12 (twelve) hours 02/12/20 25 Active valACYclovir (VALTREX) 1 gram tabletIndicati ons:Other (complete free text reason below),mouth sores Take 2 tablets (2,000 mg total) by mouth 2 (two) times a day For one day as directed 4 tablet 5 04/21/20 25 Active amLODIPine (NORVASC) 10 mg tabletIndicati ons:Hypertensi on, essential Take 1 tablet (10 mg total) by mouth daily 30 tablet 1 04/21/20 25 025 Active fluticasone propionate (FLONASE) 50 mcg/actuation nasal sprayIndicatio ns:Chronic Non-Allergic Rhinitis Administer 2 sprays into each nostril daily 3 each 4 04/21/20 25 Active famotidine (PEPCID) 20 mg tablet TAKE 1 TABLET BY MOUTH EVERY DAY 90 tablet 1 06/10/20 25 Active lisdexamfetami ne (VYVANSE) 30 mg capsule Take 1 capsule (30 mg total) by mouth every morning 30 capsule 06/15/20 25 025 Active buPROPion XL (WELLBUTRIN XL) 150 mg 24 hr tablet TAKE 3 TABLETS BY MOUTH EVERY MORNING 270 tablet 06/16/20 25 Active buPROPion XL (WELLBUTRIN XL) 150 mg 24 hr tablet TAKE 3 TABLETS BY MOUTH EVERY MORNING 270 tablet 03/12/20 25 025 Discontinued lisdexamfetami ne (VYVANSE) 30 mg capsule Take 1 capsule (30 mg total) by mouth every morning 30 capsule 05/15/20 25 025 Discontinued(Re order) famotidine (PEPCID) 20 mg tablet Take 1 tablet (20 mg total) by mouth daily 30 tablet 05/18/20 25 025 Discontinued Active Problems Problem Noted Date Diagnosed Date Proteinuria 06/15/2025 Recurrent cold sores 04/21/2025 Assessment & Plan (04/21/2025 1:13 PM CDT): Chronic recurrent mouth ulcer, take valacyclovir 2g twice daily by mouth for one day for treatment. Orders: valACYclovir (VALTREX) 1 gram tablet; Take 2 tablets (2,000 mg total) by mouth 2 (two) times a day For one day as directed Sinus congestion 04/21/2025 Assessment & Plan (04/21/2025 4:41 PM CDT): Chronic sinus congestion. Sent in Flonase for patient to begin using for the congestion. UTI symptoms 09/10/2024 Assessment & Plan (09/10/2024 1:17 PM RADIOACTIVE WASTE DISPOSAL DISPATCHER): Endorsing dysuria, low concern for pyelo at this time Will order UA and follow up with results Dyslipidemia 04/03/2024 Assessment & Plan (04/03/2024 1:20 PM CDT): Borderline high LDL and total cholesterol; encourage low-fat high-fiber diet Continue to monitor CKD (chronic kidney disease) stage 4, GFR 15-29 ml/min 04/03/2024 Assessment & Plan (06/16/2025 9:58 AM CDT): Has proteinuria and is scheduled for renal biopsy today S/p biopsy without complications - will not start any dvt prophylaxis until after 24-48 hours of the procedure - Hgb stable overnight - CTAP if patient had any severe pain or there was suspicion for bleeding - close OP follow up for CKD Assessment & Plan (06/15/2025 1:40 PM CDT): Has proteinuria and is scheduled for renal biopsy today S/p biopsy without complications - will not start any dvt prophylaxis until after 24-48 hours of the procedure - observe for one night and if stable can dc tomorrow - CTAP if patient had any severe pain or there was suspicion for bleeding - CBC in 6 hours post procedure Assessment & Plan (05/18/2025 3:08 PM CDT): Chronic condition Is being managed by icing maker Dr. Stewart Last BUN-36, creatinine-2.06 done 10/22/2024 Was scheduled for ultrasound guided renal biopsy which was missed due to poorly controlled blood pressure Plan Patient will call to schedule for ultrasound-guided renal biopsy appointment Follow up with Dr. Stewart Assessment & Plan (09/10/2024 1:16 PM RADIOACTIVE WASTE DISPOSAL DISPATCHER): No concern sin this regard, follow with icing maker Will continue to monitor peripherally Assessment & Plan (06/10/2024 2:16 PM CDT): For Nephrology; most recent EGFR was below 30, stable [place] and lambda light chains are elevated with normal ratio; positive RAMU Will follow recommendations per Nephrology Assessment & Plan (04/03/2024 1:20 PM CDT): Patient continues to have labile EGFR, with symptoms going up and down Will refer to nephrology for evaluation continue surveillance Attention deficit hyperactiv ity disorder (ADHD), predominantly hyperactive type 02/21/2024 Assessment & Plan (09/10/2024 4:02 PM RADIOACTIVE WASTE DISPOSAL DISPATCHER): Pt stable in this regard and is [...] 11/10/2022 Assessment & Plan (09/10/2024 1:43 PM RADIOACTIVE WASTE DISPOSAL DISPATCHER): Stable, is following with counselor and is [...] able Assessment & Plan (11/10/2022 1:10 PM RADIOACTIVE WASTE DISPOSAL DISPATCHER): Reviewed pharmacologic treatment options for management of [...] without esophagi tis 01/30/2022 Assessment & Plan (05/18/2025 4:35 PM CDT): Chronic condition Has been having acid reflux especially following oral medication intake Zkor-jqx-obeogja antacids have not given relief Plan Tab famotidine 20 mg daily PO Assessment & Plan (02/21/2024 1:06 PM CDT): [...] bed Hypertension, essential 03/02/2021 Assessment & Plan (06/16/2025 9:58 AM CDT): home labetalol and amlodipine Assessment & Plan (06/15/2025 1:40 PM CDT): home labetalol and amlodipine Assessment & Plan (05/18/2025 3:08 PM CDT): Chronic condition, controlled Blood pressure readings at home 130s/70s, blood pressure readings in office- 132/76, Has peripheral edema most likely from amlodipine use Patient would like to continue on amlodipine and is open to change medication after kidney biopsy. Plan Continue amlodipine 10 mg dailyPO Continue labetalol 200 mg every 12 hours PO Assessment & Plan (04/21/2025 1:13 PM CDT): Uncontrolled, change amlodipine 5mg to 10mg PO daily. Check and log at home blood pressure am and pm. 2-3x weekly. Preferably 2hrs after taking medication in the morning. Bring log to next appointment, Orders: amLODIPine (NORVASC) 10 mg tablet; Take 1 tablet (10 mg total) by mouth daily Assessment & Plan (09/10/2024 1:12 PM RADIOACTIVE WASTE DISPOSAL DISPATCHER): Mildly elevated at time of presentation, suspect [...] 03/02/2021 Assessment & Plan (09/10/2024 1:39 PM RADIOACTIVE WASTE DISPOSAL DISPATCHER): Mood much improved Continue Wellbutrin XL Assessment [...] grief Assessment & Plan (11/10/2022 1:09 PM RADIOACTIVE WASTE DISPOSAL DISPATCHER): No changes, buspirone added to current regimen. [...] Encounters Date Type Department Care Team Description 06/15/2025 12:19 PM CDT - 06/16/2025 11:27 AM CDT Hospital Encounter [address] [address] Gianluca Castro MD Mkhaimer, MD Primo Diamond, Maria Del Rosario Caceres MD CKD (chronic kidney disease), stage IV ([facility]); Persistent proteinuria, unspecified Discharge Disposition: Discharge to home or self care 06/15/2025 9:30 AM CDT Lab [facility] Advanced [facility] Advanced Medicine ([facility]) [address] [place] [id number] Pre-procedure lab exam 06/03/2025 Orders Only Radiology [address] [place] [id number] Riya Sharp PA Pre-procedure lab exam (Primary Dx) 06/02/2025 Telephone Radiology [address] [place] [address] Faye Chan, 05/18/2025 9:00 AM CDT Office Visit [facility] at [address] [phone] Allyssa Zimemr MD Hypertension, essential (Primary Dx); Gastroesophageal reflux disease without esophagitis; CKD (chronic kidney disease) stage 4, GFR 15-29 ml/min ([facility]) 05/08/2025 Telephone [facility] [address] [address] Jamaal Solorio MD Medical Question/Miscellane ous 04/21/2025 9:00 AM CDT Office Visit [facility] at [address] [phone] Allyssa Zimmer MD Hypertension, essential (Primary Dx); Recurrent cold sores; Sinus congestion 04/14/2025 Results Follow-Up [facility] [address] [phone] Jamaal Solorio MD SCAN - LABS 04/09/2025 Orders Only [facility] [address] [place] [address] Jamaal Solorio MD 03/23/2025 Orders Only [facility] [place] [address] [place] [address] Jamaal Solorio MD BHAVANI (generalized anxiety disorder) (Primary Dx); Moderate episode of recurrent major depressive disorder (HCC); Grief from Last 3 Months Immunizations [...] 07/22/2024 - 08/21/2024 [facility] [place] - bottom jaw bones removed US GUIDED BIOPSY RENAL 06/15/2025 N/A Medical History Medical History Date Comments Depression [...] Tobacco: Never Tobacco Cessation:Counseling Given: Not Answered [facility] Utilities Answer Date Recorded In the past 12 months has th e electric, gas, oil, or water company threatened to [...] or ex-partner? No 06/24/2024 Social Connection and Isolation Panel Answer Date Recorded In a typical week, how many times do you talk on the phone with family, friends, or neighbors? More than three times a week 06/24/2024 How often do you get togethe r with friends or relatives? More than three times a week 06/24/2024 How often do you attend [facility] or muslim services? More than 4 times per year [...] drink containing alc ohol? Monthly or less 05/18/2025 Q2: How many drinks containi ng alcohol do you have on a typical day when you are drinking? 1 or 2 05/18/2025 Q3: How often do you have si x or more drinks on one occasion? Never 05/18/2025 Overall Financial Resource Strain (CARDIA) Answe r Date Recorded How hard is it for you to pa y for the very basics like food, housing, medical care, and heating? Not hard at all 06/24/2024 PHQ-2 Answer Date Recorded PHQ-2 Total Score (If total score is 3 or more points, staff should administer the PHQ-9) 0 05/18/2025 [facility] - Occupational Stress Questionnaire Answer Date [...] any time in the past 12 m [facility], were you homeless or living in a intermediate (including now)? No 06/24/2024 Personal Safety Answer Date Recorded Have you ever been in or are you currently in a harmful physical or emotional relationship or is someone making you feel afraid or unsafe? Denies 06/15/2025 Comments No Sex and Gender Information Value [...] Sign Reading Time Taken Comments Blood Pressure 121/63 06/16/2025 8:00 AM CDT Pulse 63 06/16/2025 8:00 AM CDT Temperature 36.4 C (97.5 F) 06/16/2025 8:00 AM CDT Respiratory Rate 16 06/16/2025 8:00 AM CDT Oxygen Saturation 97% 06/16/2025 8:00 AM CDT Inhaled Oxygen Concentration - - Weight 72.2 kg (159 lb 3.2 oz) 06/15/2025 12:20 PM CDT Height 165.1 cm (5' 5) 06/15/2025 12:20 PM CDT Body Mass Index 26.49 06/15/2025 12:20 PM CDT Plan of Treatment Health Maintenance Due Date Last Done Comments Regular Well Visit/Exam 18-64 1979 Zoster Vaccine (1 of 2) 2011 Breast Cancer Screening-Mammogram 02/16/2023 02/16/2022 Colon Cancer Screening-DNA Stool 03/09/2024 03/09/2021 Covid-19 Vaccine ( season) 2024 01/08/2021, 12/18/2020 Influenza Vaccine (#1) 2025 , 11/22/2023, 08/22/2023, Additional history exists Depression Screening 05/18/2026 05/18/2025, 04/21/2025, 06/24/2024, Additional history exists DTaP/Tdap/Td Vaccine (3 - Td or Tdap) 02/04/2031 02/04/2021, 09/26/2016 Hepatitis C Screening Completed 02/04/2021 Hepatitis B Screening Completed 04/01/2024 Pneumococcal vaccine <65 Aged Out No longer eligible based on patient's age to complete this topic Procedures Procedure Name Priority Date/Time Associated Diagnosis Comments EGFR STAT 06/16/2025 8:01 AM CDT CBC WITHOUT DIFFERENTIAL STAT 06/16/2025 8:01 AM CDT BASIC METABOLIC PANEL STAT 06/16/2025 8:01 AM CDT EGFR Routine 06/15/2025 6:49 PM CDT BASIC METABOLIC PANEL Routine 06/15/2025 6:49 PM CDT CBC WITHOUT DIFFERENTIAL Routine 06/15/2025 6:49 PM CDT US GUIDED BIOPSY RENAL Schedule Routine, Read Routine (OP Routine) 06/15/2025 11:57 AM CDT CKD (chronic kidney disease), stage IV (HCC) Persistent proteinuria, unspecified TYPE AND SCREEN Routine 06/15/2025 9:19 AM CDT Pre-procedure lab exam DIFFERENTIAL AUTO Routine 06/15/2025 9:1 8 AM CDT Pre-procedure lab exam CBC WITH AUTO DIFFERENTIAL Routine 06/15/2025 9:18 AM CDT Pre-procedure lab exam PROTIME-INR Routine 06/15/2025 9:18 AM CDT Pre-procedure lab exam SCAN - LABS 04/09/2025 SCREENING MAMMOGRAM BILATERAL W BRENDA Schedule Routine, Read Routine (OP Routine) 02/16/2022 2:29 PM CDT Encounter for screening mammogram for malignant neoplasm of breast STOOL DNA COLOGUARD Routine 03/09/2021 1:30 PM CDT Colon cancer screening HEPATITIS C ANTIBODY Routine 02/04/2021 3:49 PM CDT Encounter for medical examination to establish care from Last 3 Months or Most Recently Relevant to Health Maintenance Results * (ABNORMAL) eGFR (06/16/2025 8:01 AM CDT) Pathologist [facility] eGFR 20(L) >=60 mL/min/1. 73 m2 Comment: Interpretive Data [...] interpretive data was last reviewed 2021. Blood 06/16/2025 8:01 AM CDT 06/16/2025 8:16 AM CDT us Maria Del Rosario Tillman MD LAB BLOOD ORDERABLES Lady castillo Result [facility] Department [place] [address] * (ABNORMAL) CBC without differential (06/16/2025 8:01 AM CDT) WBC 7.12 3.80 - 9.90 K/cumm Hgb 10.7(L) 11.9 - 15.5 g/dL [facility] Hct 34.2(L) 35.6 - 45.5 % [facility] Plt 295 150 - 400 K/cumm [facility] MPV 9.8 9.1 - 12.3 fL [facility] RBC 3.53(L) 3.90 - 5.20 M/cumm [facility] MCV 96.9(H) 81.3 - 96.4 fL [facility] MCH 30.3 27.1 - 33.3 pg [facility] MCHC 31.3(L) 32.3 - 35.7 g/dL [facility] RDW CV 13.9 11.1 - 14.9 % [facility] RDW SD 49.3(H) 35.7 - 48.1 fL [facility] NRBC abs 0.00 0.00 - 0.01 K/cumm [facility] Blood 06/16/2025 8:01 AM CDT 06/16/2025 8:16 AM CDT us Maria Del Rosario Tillman MD LAB BLOOD ORDERABLES Lady l Result [facility] Department [place] [address] * (ABNORMAL) Basic metabolic panel (06/16/2025 8:01 AM CDT) Sodium 142 135 - 145 mmol/L Potassium, pl 4.8 3.3 - 4.9 mmol/L [facility] Chloride 111(H) 97 - 110 mmol/L [facility] CO2 22 22 - 32 mmol/L [facility] Anion gap 9 2 - 15 mmol/L [facility] BUN 46(H) 6 - 25 mg/dL [facility] Creatinine 2.60(H) 0.60 - 1.10 mg/dL [facility] Glucose 101 70 - 199 mg/dL [facility] Comment: Interpretive Data Fasting glucose >/= 126 [...] interpretive data was last revised 2022. Calcium 8.9 8.5 - 10.3 mg/dL [facility] Blood 06/16/2025 8:01 AM CDT 06/16/2025 8:16 AM CDT Maria Del Rosario Tillman MD LAB BLOOD ORDERABLES Lady l Result Performing Organization Address [facility] Co de Phone Number [facility] Department [place] [address] * (ABNORMAL) eGFR (06/15/2025 6:49 PM CDT) eGFR 20(L) >=60 mL/min/1. 73 m2 Comment: Interpretive Data [...] interpretive data was last reviewed 2021. Blood 06/15/2025 6:49 PM CDT 06/15/2025 7:11 PM CDT us Michael Arias MD LAB BLOOD ORDERABLES F inal Result Performing Organization Address [facility] Co de Phone Number [facility] Department [place] [address] * (ABNORMAL) CBC without differential (06/15/2025 6:49 PM CDT) [facility] WBC 7.32 3.80 - 9.90 K/cumm Hgb 10.4(L) 11.9 - 15.5 g/dL [facility] Hct 32.4(L) 35.6 - 45.5 % [facility] Plt 308 150 - 400 K/cumm [facility] MPV 9.7 9.1 - 12.3 fL [facility] RBC 3.36(L) 3.90 - 5.20 M/cumm [facility] MCV 96.4 81.3 - 96.4 fL [facility] MCH 31.0 27.1 - 33.3 pg [facility] MCHC 32.1(L) 32.3 - 35.7 g/dL [facility] RDW CV 13.8 11.1 - 14.9 % [facility] RDW SD 49.1(H) 35.7 - 48.1 fL [facility] NRBC abs 0.00 0.00 - 0.01 K/cumm [facility] Blood 06/15/2025 6:49 PM CDT 06/15/2025 7:13 PM CDT Michael Arias MD LAB BLOOD ORDERABLES F inal Result [facility] Department [place] [address] * (ABNORMAL) Basic metabolic panel (06/15/2025 6:49 PM CDT) [facility] Sodium 145 135 - 145 mmol/L Potassium, pl 4.6 3.3 - 4.9 mmol/L [facility] Chloride 111(H) 97 - 110 mmol/L [facility] CO2 24 22 - 32 mmol/L [facility] Anion gap 10 2 - 15 mmol/L [facility] BUN 47(H) 6 - 25 mg/dL [facility] Creatinine 2.63(H) 0.60 - 1.10 mg/dL [facility] Glucose 112 70 - 199 mg/dL [facility] Comment: Interpretive Data Fasting glucose >/= 126 [...] interpretive data was last revised 2022. Calcium 8.9 8.5 - 10.3 mg/dL [facility] Blood 06/15/2025 6:49 PM CDT 06/15/2025 7:11 PM CDT us Michael Arias MD LAB BLOOD ORDERABLES F inal Result [facility] Department [place] [address] * US Guided Biopsy Renal (06/15/2025 11:57 AM CDT) Anatomical Region Laterality Modality Kidney N/A X-Ray Angiograph y 06/15/2025 12:0 1 PM CDT Impressions 06/15/2025 1:53 PM CDT 1. Successful ultrasound-guided core needle biopsy of right kidney. 2. Please see separate Surgical Pathology results for final interpretation. Dictated by: Joaquim Trinidad MD PHD The radiology attending physician has personally reviewed this study, and had reviewed and/or edited this written report and agrees with it. Electronically signed by: Tree Briseno M.D. Narrative 06/15/2025 1:53 PM CDT EXAMINATION: ULTRASOUND-GUIDED RENAL CORE BIOPSY HISTORY: Proteinuria. COMPARISON: None FINDINGS: Preprocedural images demonstrate normal sonographic appearance of the right kidney. TECHNIQUE: The procedure for ultrasound-guided core renal biopsy was explained to and discussed with the patient. Risks were explained to include, but not be limited to, hemorrhage, infection, injury to adjacent organs, non-diagnostic specimen and adverse reaction to medications administered. The patient voiced understanding and wished to proceed and signed the consent form. PROCEDURAL SEDATION: Procedural sedation was administered under the attending physician's direction and continuous monitoring by a trained nurse specialist who was independent from those actually performing the procedure. Total monitored sedation time was 13 minutes. CORE BIOPSY: A safe tract through the right kidney was identified for biopsy. An appropriate site was localized for core biopsy. The patient's overlying skin was prepped and draped in the usual sterile fashion. Local anesthesia was achieved via subcutaneous and deep administration with 10 mL of Lidocaine 1%. Under realtime ultrasound guidance, 1 passes were made with an 18 gauge CorBioTeSys core biopsy needle, 2.5 cm throw, with the use of a 17 gauge introducer needle. After confirming an adequate length of cortical tissue had been obtained, the specimen was placed in a sterile specimen cup and transferred immediately to the lab by cultured marble products maker for further processing. The biopsy tract was embolized with Gelfoam pledgets. The patient's skin was cleaned and dressed. The patient tolerated the entire procedure well without immediate complications. Dr. Tree Briseno M.D., the attending radiologist, was present from the beginning to the end of the procedure. Dr. Briseno performed the biopsy, and Dr. Trinidad assisted. Procedure Note Tree Briseno MD PhD - 06/15/2025 EXAMINATION: ULTRASOUND-GUIDED RENAL CORE BIOPSY HISTORY: Proteinuria. COMPARISON: None FINDINGS: Preprocedural images demonstrate normal sonographic appearance of the right kidney. TECHNIQUE: The procedure for ultrasound-guided core renal biopsy was explained to and discussed with the patient. Risks were explained to include, but not be limited to, hemorrhage, infection, injury to adjacent organs, non-diagnostic specimen and adverse reaction to medications administered. The patient voiced understanding and wished to proceed and signed the consent form. PROCEDURAL SEDATION: Procedural sedation was administered under the attending physician's direction and continuous monitoring by a trained nurse specialist who was independent from those actually performing the procedure. Total monitored sedation time was 13 minutes. CORE BIOPSY: A safe tract through the right kidney was identified for biopsy. An appropriate site was localized for core biopsy. The patient's overlying skin was prepped and draped in the usual sterile fashion. Local anesthesia was achieved via subcutaneous and deep administration with 10 mL of Lidocaine 1%. Under realtime ultrasound guidance, 1 passes were made with an 18 gauge Corvocet core biopsy needle, 2.5 cm throw, with the use of a 17 gauge introducer needle. After confirming an adequate length of cortical tissue had been obtained, the specimen was placed in a sterile specimen cup and transferred immediately to the lab by cultured marble products maker for further processing. The biopsy tract was embolized with Gelfoam pledgets. The patient's skin was cleaned and dressed. The patient tolerated the entire procedure well without immediate complications. Dr. Tree Briseno M.D., the attending radiologist, was present from the beginning to the end of the procedure. Dr. Briseno performed the biopsy, and Dr. Trinidad assisted. IMPRESSION: 1. Successful ultrasound-guided core needle biopsy of right kidney. 2. Please see separate Surgical Pathology results for final interpretation. Dictated by: Joaquim Trinidad MD PHD The radiology attending physician has personally reviewed this study, and had reviewed and/or edited this written report and agrees with it. Electronically signed by: Tree Briseno M.D. Shmuel Stewart MD IM US PROCEDURES Final Resu lt * Type and screen (06/15/2025 9:19 AM CDT) ABO Rh A Positive Vicki, indirect Negative [facility] Blood 06/15/2025 9:19 AM CDT 06/15/2025 10:04 AM CDT Narrative [facility] - 06/15/2025 10:59 AM CDT Has the patient had Daratumumab or Isatuximab in the past 6 months?->Unknown us Riya ELIZONDO LAB BLOOD BANK TEST ORDER TENZIN Final Result [facility] Department of Laboratories [place], [place] [id number] * Differential, auto (06/15/2025 9:18 AM CDT) Neutrophil abs 4.57 1.50 - 6.50 K/cumm Imm gran abs 0.02 0.00 - 0.10 K/cumm [facility] Lymphocyte abs 1.25 0.80 - 3.30 K/cumm [facility] Monocyte abs 0.65 0.20 - 0.80 K/cumm [facility] Eosinophil abs 0.37 0.00 - 0.50 K/cumm [facility] Basophil abs 0.09 0.00 - 0.10 K/cumm [facility] Neutrophil pct 65.7 % [facility] Comment: Interpretive Data Percent cell count reference ranges are not reported, since discordance with absolute values may lead to misinterpretation of CBC data. Current Interpretive Data was last revised on 2018. Imm gran pct 0.3 % [facility] Comment: Interpretive Data Percent cell count reference ranges are not reported, since discordance with absolute values may lead to misinterpretation of CBC data. Current Interpretive Data was last revised on 2018. Lymphocyte pct 18.0 % [facility] Comment: Interpretive Data Percent cell count reference ranges are not reported, since discordance with absolute values may lead to misinterpretation of CBC data. Current Interpretive Data was last revised on 2018. Monocyte pct 9.4 % [facility] Comment: Interpretive Data Percent cell count reference ranges are not reported, since discordance with absolute values may lead to misinterpretation of CBC data. Current Interpretive Data was last revised on 2018. Eosinophil pct 5.3 % [facility] Comment: Interpretive Data Percent cell count reference ranges are not reported, since discordance with absolute values may lead to misinterpretation of CBC data. Current Interpretive Data was last revised on 2018. Basophil pct 1.3 % [facility] Comment: Interpretive Data Percent cell count reference ranges are not reported, since discordance with absolute values may lead to misinterpretation of CBC data. Current Interpretive Data was last revised on 2018. Blood 06/15/2025 9:18 AM CDT 06/15/2025 10:00 AM CDT us Riya ELIZONDO LAB BLOOD ORDERABLES Lady jonathan Result [facility] Department [place] [address] * (ABNORMAL) CBC with auto differential (06/15/2025 9:18 AM CDT) [facility] WBC 6.95 3.80 - 9.90 K/cumm Hgb 11.3(L) 11.9 - 15.5 g/dL [facility] Hct 34.8(L) 35.6 - 45.5 % [facility] Plt 325 150 - 400 K/cumm [facility] MPV 9.7 9.1 - 12.3 fL [facility] RBC 3.69(L) 3.90 - 5.20 M/cumm [facility] MCV 94.3 81.3 - 96.4 fL [facility] MCH 30.6 27.1 - 33.3 pg [facility] MCHC 32.5 32.3 - 35.7 g/dL [facility] RDW CV 13.7 11.1 - 14.9 % [facility] RDW SD 47.8 35.7 - 48.1 fL [facility] NRBC abs 0.00 0.00 - 0.01 K/cumm [facility] Blood 06/15/2025 9:18 AM CDT 06/15/2025 10:00 AM CDT Riya ELIZONDO LAB BLOOD ORDERABLES Lady castillo Result [facility] Department [place] [address] * Protime-INR (06/15/2025 9:18 AM CDT) [facility] PT 10.8 10.2 - 13.5 sec INR 0.95 0.90 - 1.20 [facility] Comment: Interpretive data Oral anticoagulant therapeutic ranges: Venous thromboembolism prophylaxis or treatment: 2.0-3.0 CARDIOLOGY Standard range: 2.0-3.0 High-intensity range: 2.5-3.5 Refer to indication-specific guidelines for appropriate target ranges for prosthetic heart valve replacement. Current interpretive data was last revised on 2019. Blood 06/15/2025 9:18 AM CDT 06/15/2025 10:00 AM CDT us Riya Sharp PA LAB BLOOD ORDERABLES Lady l Result [facility] Department [place] [address] * SCAN - LABS (04/09/2025) us Jamaal Solorio MD Final Res ult * SCREENING MAMMOGRAM BILATERAL W BRENDA (02/16/2022 [...] Stool DNA - Cologuard Negative Not Applicable [facility] (CLIA #:[id number]) Comment: A negative result indicates a low [...] Brody et al, N Engl J Med 2014;370(14):0238-9511) The normal value (reference range) for this assay is negative. COLOGUARD RE-SCREENING RECOMMENDATION: Periodic routine colorectal cancer screening is an important part of preventive healthcare for asymptomatic persons at average risk for colorectal cancer. Following a negative Cologuard result, the [place] [employer] and U.S. Multi-Society Task Force screening guidelines recommend a Cologuard re-screening interval of 3 years. References: [place] [employer] (ACS). Colorectal cancer prevention and early detection. [place], [place]: [place] [employer]; [updated 2015Feb 12]. https://www.cancer.org/cancer/ihmvm-lusjbo-gbkrbq/twrirmoop-wkxjutlqu-bhussct/ac s-rec ommendations.html. Accessed June 21, 2018; Mohinder DK, Renetta CR, Keshawn CortezK, Colorectal Cancer Screening: Recommendations for Physicians and Patients from the U.S. Multi-Society Task Force on Colorectal Cancer Screening, Am J Gastroenterology 2017; 112:8823-9404. TEST TYPE: Composite algorithmic analysis of stool [...] interval of every 3 years by the [place] [employer] and U.S. Multi-Society Task Force. [...] can be accessed at the following location: www.[employer]/results. Additional description of the Cologuard test process, warnings and precautions can be found at www.cologuardtest.com. Rx only. Stool 03/09/2021 1:30 PM CDT 03/10/2021 4:58 PM CDT Jamaal Solorio MD LAB BODY FLUIDS AND STOOL S ORDERABLES Final Result [facility] (CLIA #:[id number]) [address] [place] [address] * Hepatitis C antibody (02/04/2021 3:49 PM [...] - GENERA L ORDERABLES Final Result [facility] [address] Department [place] [address] from Last 3 Months or Most Recently Relevant to Health Maintenance Insurance CIG [employer] Advance Directives For more information, please contact: [phone] * Full Code (Latest Code Status on File) Date Activated Date Inactivated Comments 06/15/2025 1:36 PM 06/16/2025 3:35 PM * Full Code Date Activated Date Inactivated Comments 06/15/2025 12:49 PM 06/15/2025 1:36 PM Care Teams Network Support Administrator Relationship Specialty Start Date End [place] [address] PCP - General Family Medicine 01/11/21
[2025-06-19 14:17] LABS: Hematocrit 33.0 % (37.0-47.0); Hemoglobin 10.3 g/dL (12.0-15.0); Mean Corpuscular HGB Conc 31.2 g/dl (32-36); Mean Corpuscular Hemoglobin 30.6 pg (26-34); Mean Corpuscular Volume 97.9 fl (80-100); Platelet Count Result 306 k/mm3 (150-375); Red Blood Count 3.37 M/mm3 (4.2-5.4); White Blood Count 7.3 K/mm3 (4.5-10.0)
[2025-06-19 14:31] LABS: INR 1.0; Prothrombin Time 13.7 Seconds (11.1-14.7)
[2025-06-19 14:32] LABS: Partial Thromboplastin Time 29.8 Seconds (22.3-36.8)
== END 2025-06-19 14:02 | disposition home or self-care (01) ==
LOC: ANHLAB 14:02
PROVIDERS: PCP Hospitalist; Visit Provider Internal Medicine Nephrology
DX: I12.9 Hypertensive chronic kidney disease with stage 1 through stage 4 chronic kidney disease, or unspecified chronic kidney disease (principal); N18.4 Chronic kidney disease, stage 4 (severe); R76.0 Raised antibody titer; R80.1 Persistent proteinuria, unspecified
CPT/HCPCS: 36415; 85027; 85610; 85730; 86850; 86900; 86901

== ENCOUNTER 2025-06-29 13:39 | Outpatient (CLI) | payer OTHER, SELFPAY ==
--- OUTSIDE RECORDS SUMMARY | 2025-06-29 13:42 | XMS_ITS | Clinical Summary ---
Author Organization [facility] [address] [facility] Address [address] [place] [address] Care Team Providers Care Telecasting Engineer Name Role Phone Jamaal Solorio MD Primary Care Provider [phone] Allergies Active Allergy Reactions Criticality Noted Date [...] mouth daily 30 tablet 1 04/21/20 25 Active fluticasone propionate (FLONASE) 50 mcg/actuation nasal [...] 09/10/2024 Assessment & Plan (09/10/2024 1:17 PM ATTENDING UROLOGIST): Endorsing dysuria, low concern for pyelo at [...] CDT): Chronic condition Is being managed by natural resources engineer Dr. Stewart Last BUN-36, creatinine-2.06 done 10/22/2024 Was scheduled for ultrasound guided renal biopsy which was missed due to poorly controlled blood pressure Plan Patient will call to schedule for ultrasound-guided renal biopsy appointment Follow up with Dr. Stewart Assessment & Plan (09/10/2024 1:16 PM ATTENDING UROLOGIST): No concern sin this regard, follow with natural resources engineer Will continue to monitor peripherally Assessment & Plan (06/10/2024 2:16 PM CDT): For Nephrology; most recent EGFR was below 30, stable [place] and lambda light chains are elevated with normal ratio; positive RAMU Will follow recommendations per Nephrology Assessment & Plan (04/03/2024 1:20 PM CDT): Patient continues to have labile EGFR, with symptoms going up and down Will refer to nephrology for evaluation continue surveillance Attention deficit hyperactiv ity disorder (ADHD), predominantly hyperactive type 02/21/2024 Assessment & Plan (09/10/2024 4:02 PM ATTENDING UROLOGIST): Pt stable in this regard and is [...] 11/10/2022 Assessment & Plan (09/10/2024 1:43 PM ATTENDING UROLOGIST): Stable, is following with counselor and is [...] able Assessment & Plan (11/10/2022 1:10 PM ATTENDING UROLOGIST): Reviewed pharmacologic treatment options for management of [...] acid reflux especially following oral medication intake Elcd-uzo-vqjvffi antacids have not given relief Plan Tab [...] daily Assessment & Plan (09/10/2024 1:12 PM ATTENDING UROLOGIST): Mildly elevated at time of presentation, suspect [...] 03/02/2021 Assessment & Plan (09/10/2024 1:39 PM ATTENDING UROLOGIST): Mood much improved Continue Wellbutrin XL Assessment & Plan (06/10/2024 2:15 PM CDT): Stable, patient continues to have significant grief related to loss of ; patient has begun to engage in outside activities, including going to jainism; starting to go to stores at time; continues to have days of significant grief Recommend continued engagement with social activities, including jainism as well as groups such as group share Assessment & Plan (04/03/2024 1:19 PM CDT): Not well controlled, acutely worsened; patient's recently Continue bupropion 450 mg daily; patient to follow up with individual counseling Patient given resources for grief Assessment & Plan (11/10/2022 1:09 PM ATTENDING UROLOGIST): No changes, buspirone added to current regimen. [...] - 06/16/2025 11:27 AM CDT Hospital Encounter [address] [phone] Gianluca Castro MD Mkhaimer, MD Primo Diamond, Maria Del Rosario Caceres MD CKD (chronic kidney disease), stage IV ([facility]); Persistent proteinuria, unspecified Discharge Disposition: Discharge to home or self care 06/15/2025 9:30 AM CDT Lab [facility] ([facility]) [address] [place] [phone] Pre-procedure lab exam 06/03/2025 Orders Only Radiology [address] [place] [address] Riya Sharp PA Pre-procedure lab exam (Primary Dx) 06/02/2025 Telephone Radiology [address] [place] [address] Faye Chan, 05/18/2025 9:00 AM CDT Office Visit [facility] at [address] [place], [place] [phone] Allyssa Zimmer MD Hypertension, essential (Primary Dx); Gastroesophageal reflux disease without esophagitis; CKD (chronic kidney disease) stage 4, GFR 15-29 ml/min ([facility]) 05/08/2025 Telephone [facility] [address] [phone] Jamaal Solorio MD Medical Question/Miscellane ous 04/21/2025 9:00 AM CDT Office Visit [facility] at [address] [place] [phone] Allyssa Zimmer MD Hypertension, essential (Primary Dx); Recurrent cold sores; Sinus congestion 04/14/2025 Results Follow-Up [facility] [address] [phone] Jamaal Solorio MD SCAN - LABS 04/09/2025 Orders Only [facility] Health Information Management [address] [place] [address] Jamaal Solorio MD from Last 3 Months Immunizations Immunization Administration [...] - 10/21/1996 ORAL SURGERY 07/22/2024 - 08/21/2024 [facility] Oral Surgery in [place] - bottom jaw bones removed US GUIDED [...] Tobacco: Never Tobacco Cessation:Counseling Given: Not Answered [facility] Utilities Answer Date Recorded In the past 12 months has e [employer], gas, oil, or water [employer] threatened to shut off services in your [...] week 06/24/2024 How often do you attend [facility] or church services? More than 4 times per year 06/24/2024 Do you belong to any clubs o r organizations such as jainism groups, unions, fraternal or athletic groups, or [...] staff should administer the PHQ-9) 0 05/18/2025 [facility] Occupat ional [facility] - Occupational Stress Questionnaire Answer Date [...] any time in the past 12 m [facility], were you homeless or living in a longterm (including now)? No 06/24/2024 Personal Safety Answer [...] Stool 03/09/2024 03/09/2021 Covid-19 Vaccine ( season) 2025 01/08/2021, 12/18/2020 Influenza Vaccine (#1) 2025 , [...] disease), stage IV (HCC) Persistent proteinuria, unspecified SURGICAL PATHOLOGY Routine 06/15/2025 11 :29 AM CDT CKD (chronic kidney disease), stage [...] * (ABNORMAL) eGFR (06/16/2025 8:01 AM CDT) [facility] eGFR 20(L) >=60 mL/min/1. 73 m2 Comment: [...] MD LAB BLOOD ORDERABLES Lady castillo Result [facility] One [facility] [place] [address] * (ABNORMAL) CBC without differential (06/16/2025 8:01 AM CDT) [facility] WBC 7.12 3.80 - 9.90 K/cumm Hgb 10.7(L) 11.9 - 15.5 g/dL [facility] Hct 34.2(L) 35.6 - 45.5 % [facility] Plt 295 150 - 400 K/cumm [facility] MPV 9.8 9.1 - 12.3 fL [facility] RBC 3.53(L) 3.90 - 5.20 M/cumm [facility] MCV 96.9(H) 81.3 - 96.4 fL [facility] MCH 30.3 27.1 - 33.3 pg [facility] MCHC 31.3(L) 32.3 - 35.7 g/dL [facility] RDW CV 13.9 11.1 - 14.9 % [facility] RDW SD 49.3(H) 35.7 - 48.1 fL [facility] NRBC abs 0.00 0.00 - 0.01 K/cumm [facility] Blood 06/16/2025 8:01 AM CDT 06/16/2025 8:16 AM CDT us Maria Del Rosario Tillman MD LAB BLOOD ORDERABLES Lady castillo Result [facility] One [facility] [place] [address] * (ABNORMAL) Basic metabolic panel (06/16/2025 8:01 AM CDT) Sodium 142 135 - 145 mmol/L Potassium, pl 4.8 3.3 - 4.9 mmol/L [facility] Chloride 111(H) 97 - 110 mmol/L [facility] CO2 22 22 - 32 mmol/L [facility] Anion gap 9 2 - 15 mmol/L [facility] BUN 46(H) 6 - 25 mg/dL [facility] Creatinine 2.60(H) 0.60 - 1.10 mg/dL [facility] Glucose 101 70 - 199 mg/dL [facility] Comment: Interpretive Data Fasting glucose >/= 126 [...] 2022. Calcium 8.9 8.5 - 10.3 mg/dL [facility] Blood 06/16/2025 8:01 AM CDT 06/16/2025 8:16 AM CDT us Maria Del Rosario Tillman MD LAB BLOOD ORDERABLES Lady l Result Performing Organization Address [facility] Co de Phone Number [facility] [place] [address] * (ABNORMAL) eGFR (06/15/2025 6:49 PM CDT) [...] ORDERABLES F inal Result Performing Organization Address City/[facility]/ZIP Co de Phone Number [facility] Department [place] [address] * (ABNORMAL) CBC without differential (06/15/2025 6:49 PM CDT) WBC 7.32 3.80 - 9.90 K/cumm Hgb 10.4(L) 11.9 - 15.5 g/dL [facility] Hct 32.4(L) 35.6 - 45.5 % [facility] Plt 308 150 - 400 K/cumm [facility] MPV 9.7 9.1 - 12.3 fL [facility] RBC 3.36(L) 3.90 - 5.20 M/cumm [facility] MCV 96.4 81.3 - 96.4 fL [facility] MCH 31.0 27.1 - 33.3 pg [facility] MCHC 32.1(L) 32.3 - 35.7 g/dL [facility] RDW CV 13.8 11.1 - 14.9 % [facility] RDW SD 49.1(H) 35.7 - 48.1 fL [facility] NRBC abs 0.00 0.00 - 0.01 K/cumm [facility] Blood 06/15/2025 6:49 PM CDT 06/15/2025 7:13 PM CDT us Michael Arias MD LAB BLOOD ORDERABLES F inal Result [facility] One [facility] [place] [address] * (ABNORMAL) Basic metabolic panel (06/15/2025 6:49 PM CDT) Pathologist [facility] Sodium 145 135 - 145 mmol/L Potassium, pl 4.6 3.3 - 4.9 mmol/L [facility] Chloride 111(H) 97 - 110 mmol/L [facility] CO2 24 22 - 32 mmol/L [facility] Anion gap 10 2 - 15 mmol/L [facility] BUN 47(H) 6 - 25 mg/dL [facility] Creatinine 2.63(H) 0.60 - 1.10 mg/dL [facility] Glucose 112 70 - 199 mg/dL [facility] Comment: Interpretive Data Fasting glucose >/= 126 [...] 2022. Calcium 8.9 8.5 - 10.3 mg/dL [facility] Blood 06/15/2025 6:49 PM CDT 06/15/2025 7:11 PM CDT us Michael Arias MD LAB BLOOD ORDERABLES F inal Result [facility] One [facility] [place] [address] * US Guided Biopsy Renal (06/15/2025 11:57 [...] and transferred immediately to the lab by photo stylist for further processing. The biopsy tract was [...] and transferred immediately to the lab by photo stylist for further processing. The biopsy tract was [...] it. Electronically signed by: Tree Briseno M.D. Result [facility] Shmuel Stewart MD [facility] PROCEDURES Final Resu lt * Surgical pathology (06/15/2025 11:29 AM CDT) Tissue (Kidney Biopsy, Medical) 06/15/2025 11:29 AM CDT Narrative PATHOLOGY [facility] - 06/19/2025 3:17 PM CDT EPIC results best viewed via link to PDF [facility] Lexi Lopez Laboratory [place] [address] Note to Patients: This report may contain [...] can answer questions and explain the details. SURGICAL PATHOLOGY REPORT FINAL Patient Name: LIDIA MAHER Gender: F : 1960 (Age: 65) Address: [address] [place] [phone] [facility] #: [id number] Taken:06/15/2025 Received:06/15/2025 Reported: 06/19/2025 Patient Type: [facility] OP In Bed Service: Medical Location: [facility] 3500 Physician(s): Lance Suarez M.D. Daniel Patrick Berg, M.D. 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 See comment - Global (08/03) and segmental glomerulosclerosis - Interstitial fibrosis and tubular atrophy, severe - Arteriosclerosis, severe - See comment go/06/16/2025 13:48 By this signature, I attest that the above diagnosis is based upon my personal examination of the slides(and/or other material indicated in the diagnosis). Soha Keita M.D. Report Electronically Reviewed and Signed Out By Soha Keita M.D. 06/19/2025 15:17:15 Diagnosis Comment The biopsy shows advanced chronicity with the majority of the glomeruli globally sclerotic. While no active or proliferative lesions are identified, immunofluorescence and electron microscopy studies reveal presence of immune complex deposits. Casues of immune complex deposition such as auto-immune disorders or infection associated diseases shoudl be considered in the differential diagnosis. Microscopic Description and Comment: Light Microscopy Tissue for light microscopy is evaluated using 8 slides at 2 levels of section with H&E, PAS, Carmela's trichrome, and Correa' silver stains. One core of renal tissue is present, entirely represented by cortex. Up to twelve glomeruli are available for evaluation, ten globally sclerotic. The non-sclerotic glomeruli show wrinkled capillary loops. One glomerulus is marked by an area of segmental sclerosis at tthe tip region of the glomerulus. There is no mesangial expansion, crescent formation, endocapillary hypercellularity, or fibrinoid necrosis. The cortical tubulointerstitial tissue has severe interstitial fibrosis and tubular atrophy affecting approximately 80% of the cortex. There is a mild to moderate inflammatory infiltrate involving the areas of cortical fibrosis and is mostly represented by mononuclear cells. The tubules show PAS positive proteinaceous casts without surrounding cellular reaction. Small arteries and arterioles show severe arteriosclerosis and mild hyalinosis. Immunofluorescence Microscopy Frozen sections of tissue submitted for immunofluorescence microscopy are stained with H&E and evaluated by light microscopy. No glomeruli are present for evaluation. Direct immunofluorescence microscopy is performed on frozen sections, with appropriate controls, stained with fluoresceinated antisera to IgG, IgA, IgM, C1q, C3, albumin, fibrin, and kappa and lambda light chains to evaluate for immune mediated kidney disease. There is nuclear positivity for IgG, kappa, and lambda light chains in the tubular epithelial cells (in vivo RAMU). There is positive staining of arterioles with C3 and tubular casts with IgA. Tubular casts and protein resorption droplets stain positive for kappa and lambda of equal intensity. Section quality is satisfactory and positive and negative controls stain appropriately. Immunofluorescence studies are performed on paraffin embedded tissue, following protease digestion, for IgG, IgA, IgM, C1q, C3, and kappa and lambda light chains. The only intact glomerulus available for evaluation shows mesangial and segmental capillary staining for IgG (2+), IgA(1+), IgM (trace-1+), and kappa and lambda light chains (1+ each). Electron Microscopy Plastic thick 1 micron sections of the tissue submitted for electron microscopy were stained with Toluidine blue and evaluated by light microscopy. One glomerulus is present, not globally sclerotic. The tubulointerstitial and vascular compartments show similar findings as the light microscopic sample. Ultra-thin sections are prepared for electron microscopic examination. The glomerulus evaluated by electron microscopy has scattered mesangial immune type electron dense deposits. The glomerular basement membranes are wrinkled. There is segmental moderate podocyte foot process effacement. The tubular basement membranes do not show immune-type electron dense deposits. Jeffery Donohue M.D. History: The patient is a 65-year-old woman presenting with chronic kidney disease, stage IV; persistent proteinuria, unspecified; and a history of hypertension and positive RAMU. Operative procedure: [place] kidney biopsy. Specimen(s) Received: A: [place] right kidney core B: [place] right kidney core - for if C: Tissue for EM Gross Description: Received in three formalin jars labeled with the patient's identifiers. A. Received in formalin, labeled minto right kidney and consists of a single core(s) of clark pink soft tissue (1.1 cm in length by 0.1 cm in diameter). Wrapped. Labeled A1. Jar 0. B. Received in [facility], labeled minto right kidney and consists of a single core(s) of clark pink soft tissue (0.9 cm in length by 0.1 cm in diameter). Specimen is entirely submitted for Immunofluorescence . C. Received in [facility], labeled minto right kidney and consists of a single core(s) of clark pink soft tissue (0.3 cm in length by 0.1 cm in diameter). Specimen is entirely submitted for Electron Microscopy. sxst/06/15/2025 13:19 PA(s): Lulu Reagan By this signature, I attest that the above diagnosis is based upon my personal examination of the slides(and/or other material). Addenda/Procedures The performance characteristics of some immunohistochemical stains, fluorescence in-situ hybridization tests and immunophenotyping by flow cytometry cited in this report (if any) were determined by the Surgical Pathology and Flow Cytometry Departments at [facility] as part of an ongoing quality improvement specialist program and in compliance with federally mandated [...] performance characteristics determined by the Surgical Pathology and Flow Cytometry Departments of [facility]. It has not been cleared or approved by the U. S. Food and Drug Administration. IMAGES AND SCANNED DOCUMENTS, IF INCLUDED, ONLY VIEWABLE IN PDF VERSION OF REPORT Shmuel Stewart MD LAB PATHOLOGY ORDERABLES Fin al Result PATHOLOGY [facility] 3rd Floor [place], [place] [phone] * Type and screen (06/15/2025 9:19 AM CDT) ABO Rh A Positive Vicki, indirect Negative [facility] Blood 06/15/2025 9:19 AM CDT 06/15/2025 10:04 AM CDT Narrative [facility] - 06/15/2025 10:59 AM CDT Has the patient had Daratumumab or Isatuximab in the past 6 months?->Unknown Riya ELIZONDO LAB BLOOD BANK TEST ORDER TENZIN Final Result [facility] One [facility] [place] [address] * Differential, auto (06/15/2025 9:18 AM CDT) Neutrophil abs 4.57 1.50 - 6.50 K/cumm Imm gran abs 0.02 0.00 - 0.10 K/cumm [facility] Lymphocyte abs 1.25 0.80 - 3.30 K/cumm [facility] Monocyte abs 0.65 0.20 - 0.80 K/cumm [facility] Eosinophil abs 0.37 0.00 - 0.50 K/cumm [facility] Basophil abs 0.09 0.00 - 0.10 K/cumm [facility] Neutrophil pct 65.7 % [facility] Comment: Interpretive Data Percent cell count reference ranges are not reported, since discordance with absolute values may lead to misinterpretation of CBC data. Current Interpretive Data was last revised on 2018. Imm gran pct 0.3 % [facility] Comment: Interpretive Data Percent cell count reference ranges are not reported, since discordance with absolute values may lead to misinterpretation of CBC data. Current Interpretive Data was last revised on 2018. Lymphocyte pct 18.0 % [facility] Comment: Interpretive Data Percent cell count reference ranges are not reported, since discordance with absolute values may lead to misinterpretation of CBC data. Current Interpretive Data was last revised on 2018. Monocyte pct 9.4 % [facility] Comment: Interpretive Data Percent cell count reference ranges are not reported, since discordance with absolute values may lead to misinterpretation of CBC data. Current Interpretive Data was last revised on 2018. Eosinophil pct 5.3 % [facility] Comment: Interpretive Data Percent cell count reference ranges are not reported, since discordance with absolute values may lead to misinterpretation of CBC data. Current Interpretive Data was last revised on 2018. Basophil pct 1.3 % [facility] Comment: Interpretive Data Percent cell count reference ranges are not reported, since discordance with absolute values may lead to misinterpretation of CBC data. Current Interpretive Data was last revised on 2018. Blood 06/15/2025 9:18 AM CDT 06/15/2025 10:00 AM CDT us Riya ELIZONDO LAB BLOOD ORDERABLES Lady castillo Result [facility] One [facility] [place] [address] * (ABNORMAL) CBC with auto differential (06/15/2025 9:18 AM CDT) WBC 6.95 3.80 - 9.90 K/cumm Hgb 11.3(L) 11.9 - 15.5 g/dL [facility] Hct 34.8(L) 35.6 - 45.5 % [facility] Plt 325 150 - 400 K/cumm [facility] MPV 9.7 9.1 - 12.3 fL [facility] RBC 3.69(L) 3.90 - 5.20 M/cumm [facility] MCV 94.3 81.3 - 96.4 fL [facility] MCH 30.6 27.1 - 33.3 pg [facility] MCHC 32.5 32.3 - 35.7 g/dL [facility] RDW CV 13.7 11.1 - 14.9 % [facility] RDW SD 47.8 35.7 - 48.1 fL [facility] NRBC abs 0.00 0.00 - 0.01 K/cumm [facility] Blood 06/15/2025 9:18 AM CDT 06/15/2025 10:00 AM CDT us Riya ELIZONDO LAB BLOOD ORDERABLES Lady l Result Performing Organization Address [facility] de Phone Number [facility] [place] [address] * Protime-INR (06/15/2025 9:18 AM CDT) PT 10.8 10.2 - 13.5 sec INR 0.95 0.90 - 1.20 [facility] Comment: Interpretive data Oral anticoagulant therapeutic ranges: Venous thromboembolism prophylaxis or treatment: 2.0-3.0 CARDIOLOGY Standard range: 2.0-3.0 High-intensity range: 2.5-3.5 Refer to indication-specific guidelines for appropriate target ranges for prosthetic heart valve replacement. Current interpretive data was last revised on 2019. Blood 06/15/2025 9:18 AM CDT 06/15/2025 10:00 AM CDT Riya Hollowayaine Jtgiorgio [place] LAB BLOOD ORDERABLES Lady l Result Performing Organization Address [facility] de Phone Number [facility] [place] [address] * SCAN - LABS (04/09/2025) Jamaal Solorio MD Final Res ult * [...] in either breast. us Jamaal Solorio MD [facility] MAMMO PROCEDURES Lady l Result * Stool DNA - Cologuard (03/09/2021 1:30 PM CDT) Stool DNA - Cologuard Negative Not Applicable [facility] (CLIA #:[id number]) Comment: A negative result indicates a low [...] (Radha Perez al, N Engl J Med 2014;370(14):2884-3676) The normal value (reference range) for this assay is negative. COLOGUARD RE-SCREENING RECOMMENDATION: Periodic routine colorectal cancer screening is an important part of preventive healthcare for asymptomatic persons at average risk for colorectal cancer. Following a negative Cologuard result, the [place] [employer] and U.S. Multi-Society Task Force screening guidelines recommend a Cologuard re-screening interval of 3 years. References: [place] [employer] (ACS). Colorectal cancer prevention and early detection. [place], [place]: [employer] [place]; [updated 2015Feb 12]. https://www.cancer.org/cancer/wqlcq-cryhcg-pzgjiz/tmansejcv-uizpudjny-mkhyzbm/ac s-rec ommendations.html. Accessed June 21, 2018; Mohinder LAWRENCE, Renetta LOMAX, Keshawn GORE, Colorectal Cancer Screening: Recommendations for Physicians and Patients from the U.S. Multi-Society Task Force on Colorectal Cancer Screening, Am J Gastroenterology 2017; 112:1966-3251. TEST TYPE: Composite algorithmic analysis of stool [...] interval of every 3 years by the [place] [employer] and U.S. Multi-Society Task Force. [...] can be accessed at the following location: www.Boom.fm/results. Additional description of the Cologuard test process, warnings and precautions can be found at www.cologuardtest.com. Rx only. Stool 03/09/2021 1:30 PM CDT 03/10/2021 4:58 PM CDT us Jamaal Solorio MD LAB BODY FLUIDS AND STOOL S ORDERABLES Final Result [facility] (CLIA #:[id number]) [place] [place] [place] [address] * Hepatitis C antibody (02/04/2021 3:49 PM [...] CDT Jamaal Solorio MD LAB MICROBIOLOGY - [facility] [place]ABLES [place] [address] [address] [place] [address] from Last 3 Months or Most Recently Relevant to Health Maintenance Insurance [employer] C[employer]NA CIGNA Advance Directives For more information, please contact: [phone] * Full Code (Latest Code Status on File) Date Activated Date Inactivated Comments 06/15/2025 1:36 PM 06/16/2025 3:35 PM * Full Code Date Activated Date Inactivated Comments 06/15/2025 12:49 PM 06/15/2025 1:36 PM Care Teams Telecasting Engineer Relationship Specialty Start Date End Date Jamaal Solorio [place] [address] PCP - General Family Medicine 01/11/21
--- OUTSIDE RECORDS SUMMARY | 2025-06-29 13:42 | XMS_ITS | Clinical Summary ---
Author Organization [facility] [employer] Address [address] [place] [address] Care Team Providers Care Open Soaper Tender Name Role Phone Unavailable Primary Care Provider Unavailabl e Source Comments [facility] [employer],non-owned Affiliates and Associated Physician Practices is amultiple site organization consisting of ambulatory clinics and hospital sitesin [place], [place], [place] and [place]. This disclosure is being madepursuant to the Care Everywhere program and may not contain all information available regarding this patient. Last updated 18.[facility] [employer] Allergies Active Allergy Reactions Criticality Noted Date Comments Hydrochlorothiazide Nausea and/or Vomiting Medium 11/0 10/2015 Sulfa Drugs Vomiting 04/03/2019 Hydrocodone-Acetaminophen Psychiatric,Vomiting Medium 04/03/2019 Medications * Be aware that medications may not be up to date on this document. Alwaysverify current medications with the patient. fluticasone propionate (FLONASE) 50 MCG/ACT nasal spray [place] 2 sprays into each nostril once daily [...] Comments Blood Pressure 128/78 10/04/2020 2:44 PM MACHINE I TRIMMER Pulse 88 10/04/2020 2:44 PM MACHINE I TRIMMER Temperature 36.8 C (98.2 F) 10/04/2020 2:44 PM MACHINE I TRIMMER Respiratory Rate 20 10/04/2020 2:44 PM MACHINE I TRIMMER Oxygen Saturation 97% 11/01/2019 4:10 PM MACHINE I TRIMMER Inhaled Oxygen Concentration - - Weight 86.2 kg (190 lb) 11/01/2019 4:10 PM MACHINE I TRIMMER Height 165.1 cm (5' 5) 11/01/2019 4:10 PM MACHINE I TRIMMER Body Mass Index 31.62 11/01/2019 4:10 PM MACHINE I TRIMMER Plan of Treatment Health Maintenance Due Date [...]
--- OUTSIDE RECORDS SUMMARY | 2025-06-29 13:42 | XMS_ITS | Clinical Summary ---
Author Organization [facility] Facility Address [address] [place] [id number] Care Team Providers Care Aqu[employer] Group Fitness Instructor Name Role Phone Jamaal Garcia MD Primary Care Provider [phone] Allergies Active Allergy Reactions Criticality Noted Date [...] age to complete this topic Care Teams Aquatics Group Fitness Instructor Relationship Specialty Start Date End [place] [address] PCP - General Family Medicine 06/19/22
[2025-06-29 14:13] LABS: Hematocrit 34.6 % (37.0-47.0); Hemoglobin 11.0 g/dL (12.0-15.0); Mean Corpuscular HGB Conc 31.8 g/dl (32-36); Mean Corpuscular Hemoglobin 30.9 pg (26-34); Mean Corpuscular Volume 97.2 fl (80-100); Platelet Count Result 338 k/mm3 (150-375); Red Blood Count 3.56 M/mm3 (4.2-5.4); White Blood Count 6.7 K/mm3 (4.5-10.0)
[2025-06-29 14:38] LABS: Albumin Level 4.1 g/dL (3.5-5.1); Anion Gap 9 mmol/L (4-12); Blood Urea Nitrogen 55 mg/dL (7-17); Calcium 9.3 mg/dL (8.4-10.2); Carbon Dioxide 21 mmol/L (22-30); Chloride 109 mmol/L (98-107); Estimated Glomerular Filt Rate 18; Glucose 83 mg/dL (65-110); Potassium 4.7 mmol/L (3.4-5.0); Sodium 139 mmol/L (137-145)
[2025-06-29 14:42] LABS: Total Protein Urine Random 178 mg/dL; Ur Ttl Prot Creatinine Ratio 3.08 mg/mg (0-0.20)
[2025-06-29 15:19] LABS: Parathyroid Intact 99.6 pg/mL (14.5-75.2)
== END 2025-06-29 13:40 | disposition home or self-care (01) ==
PROVIDERS: PCP Hospitalist; Visit Provider Internal Medicine Nephrology
DX: R80.1 Persistent proteinuria, unspecified (principal); I12.9 Hypertensive chronic kidney disease with stage 1 through stage 4 chronic kidney disease, or unspecified chronic kidney disease; N18.4 Chronic kidney disease, stage 4 (severe); R76.0 Raised antibody titer
CPT/HCPCS: 36415; 80069; 82570; 83970; 84156; 85027

== ENCOUNTER 2025-08-10 11:41 | Outpatient (CLI) | payer OTHER, SELFPAY ==
[2025-08-10 12:25] LABS: Anion Gap 8 mmol/L (4-12); Blood Urea Nitrogen 49 mg/dL (7-17); Calcium 8.7 mg/dL (8.4-10.2); Carbon Dioxide 20 mmol/L (22-30); Chloride 109 mmol/L (98-107); Estimated Glomerular Filt Rate 18; Glucose 95 mg/dL (65-110); Potassium 5.0 mmol/L (3.4-5.0); Sodium 137 mmol/L (137-145)
== END 2025-08-10 11:42 | disposition home or self-care (01) ==
LOC: ANHLAB 11:42
PROVIDERS: PCP Hospitalist; Visit Provider Internal Medicine Nephrology
DX: I12.9 Hypertensive chronic kidney disease with stage 1 through stage 4 chronic kidney disease, or unspecified chronic kidney disease (principal); N18.4 Chronic kidney disease, stage 4 (severe)
CPT/HCPCS: 36415; 80048